=== PATIENT | male | born 1955 | race Caucasian/White ===

== ENCOUNTER 2016-09-26 19:38 | Inpatient (IN) | payer OTHER ==
[~2016-09-26] VITALS: Ht 167.6 cm; Wt 73.2 kg
[2016-09-26 22:24] LABS: BASOPHIL # 0.1 10^3/ul (0.0-0.1); BASOPHILS % 1.1 % (0.0-2.0); EOSINOPHILS # 0.1 10^3/ul (0.0-0.5); EOSINOPHILS % 1.4 % (0.0-7.0); HEMATOCRIT 26.8 % (42.0-52.0); HEMOGLOBIN 8.9 g/dl (14.0-18.0); LYMPHOCYTES # 1.8 10^3/ul (0.8-2.9); LYMPHOCYTES % 22.4 % (15.0-51.0); MEAN CORPUSCULAR HEMOGLOBIN 30.3 pg (29.0-33.0); MEAN CORPUSCULAR HGB CONC 33.2 g/dl (32.0-37.0); MEAN CORPUSCULAR VOLUME 91.2 fl (82.0-101.0); MEAN PLATELET VOLUME 9.5 fl (7.4-10.4); MONOCYTE # 0.6 10^3/ul (0.3-0.9); MONOCYTES % 7.9 % (0.0-11.0); NEUTROPHILS % 66.8 % (39.0-77.0); PLATELET COUNT 184 10^3/UL (140-415); RED BLOOD COUNT 2.94 10^6/ul (4.70-6.10); RED CELL DISTRIBUTION WIDTH 16.8 % (11.5-14.5); WHITE BLOOD COUNT 8.1 10^3/ul (4.8-10.8)
[2016-09-26 22:39] LABS: INR 1.1; PROTIME 14.2 Sec (12.2-14.2); PT RATIO 1.1
[2016-09-26 22:40] LABS: PARTIAL THROMBOPLASTIN TIME 45.1 Sec (25.0-35.0)
[2016-09-26 22:56] LABS: ALBUMIN 3.6 g/dl (3.3-4.9); ALBUMIN/GLOBULIN RATIO 0.83; BILIRUBIN,INDIRECT 0.2 mg/dl (0-1.1); BILIRUBIN,TOTAL 0.2 mg/dl (0.2-1.3); CALCIUM 9.3 mg/dl (8.4-10.2); CREATININE 3.82 mg/dl (0.61-1.24); POTASSIUM 3.6 mmol/L (3.5-5.1); TOTAL PROTEIN 7.9 g/dl (6.1-8.1)
[2016-09-26 23:07] LABS: TROPONIN-I 0.056 ng/ml (0.00-0.12)
[2016-09-26] MEDS ORDERED: TAMS0.4C2 PO (23:19)
[2016-09-26] MEDS ORDERED: AMLO-147 PO (23:19)
[2016-09-26] MEDS ORDERED: METO-429 PO (23:19)
[2016-09-26] MEDS ORDERED: AMIO200T2 PO (23:19)
[2016-09-26] MEDS ORDERED: MULT-542 PO (23:19)
[2016-09-26] MEDS ORDERED: LISI20TA11 PO (23:19)
[2016-09-26] MEDS ORDERED: CLON0.2T5 PO (23:19)
[2016-09-26] MEDS ORDERED: FOLI1CAP PO (23:19)
[2016-09-26] MEDS ORDERED: HYDR-3672 PO (23:19)
[2016-09-26] MEDS ORDERED: PANT40TA4 PO (23:19)
--- NOTE | 2016-09-26 23:22 | RADRPT ---
PROCEDURE: XR Chest. CLINICAL INDICATION: Sepsis TECHNIQUE: Single AP portable chest. COMPARISON: No prior Chest x-ray FINDINGS: Cardiomegaly with moderate vascular congestion. Right the dialysis catheter tip at the cavoatrial j unction. New Atherosclerotic calcification of the aorta. Large right pleural effusion at the right base opacity. Superimposed pneumonia cannot be excluded. No pneumothorax. The osseous structures a nd soft tissues are unremarkable. IMPRESSION: 1. Large right pleural effusion with vascular congestion. Superimposed right lower lobe pneumonia c annot be excluded. 2. Right dialysis catheter tip overlying the cavoatrial junction. 3. Cardiomegaly. . RPTAT:AAJJ Physician Scott Date Time Electronically viewed and signed by Physician Scott on 09/26/2016 23:21 INDIRA/
[2016-09-27] VITALS (13 sets, daily range): BP systolic 123–159; BP diastolic 74–94; PULSE 69–85; RESP 18–20; TEMP 98.4; Ht 167.6 cm; Wt 73.2 kg
[2016-09-27] MEDS ORDERED: hydrALAzine 20 MG INJ IV ONE (02:30)
--- NOTE | 2016-09-27 02:34 | ERA ---
ER Documentation Chief Complaint Date/Time DATE: 09/27/16 TIME: 02:32 Chief Complaint HTN, SOB TODAY. S/P DIALYSIS TODAY. 3L OUT. HPI 61 year male comes in with hypertension shortness of breath today. Patient says that he began feeling short of breath after his full dialysis treatment today. No nausea no vomiting no fevers no chills. No chest pain. No other current complaints. ROS All systems reviewed and are negative except as per history of present illness. Medications Home Meds Reported Medications Lisinopril* (Lisinopril*) 20 Mg Tablet, 20 MG PO BID, #30 TAB 09/26/16 Amlodipine Besylate* (Amlodipine Besylate*) 10 Mg Tablet, 10 MG PO DAILY, #30 TAB 09/26/16 Clonidine Hcl* (Clonidine Hcl*) 0.2 Mg Tablet, 0.2 MG PO Q8, TAB 09/26/16 Amiodarone Hcl* (Amiodarone Hcl*) 200 Mg Tablet, 200 MG PO DAILY, #30 TAB 09/26/16 Metoprolol Tartrate* (Lopressor*) 50 Mg Tab, 50 MG PO TID, #60 TAB 09/26/16 Pantoprazole* (Pantoprazole*) 40 Mg Tablet.dr, 40 MG PO DAILY, TAB 09/26/16 Folic Acid/Vitamin B Comp W-C (Nephrocaps Capsule) 1 Mg Capsule, 1 MG PO DAILY, CAP 09/26/16 Multivitamin* (Daily Value*) 1 Each Tablet, 1 TAB PO DAILY, TAB 09/26/16 Hydralazine Hcl* (Hydralazine Hcl*) 50 Mg Tab, 100 MG PO TID, #180 TAB 09/26/16 Tamsulosin Hcl* (Tamsulosin Hcl*) 0.4 Mg Cap.er.24h, 0.4 MG PO DAILY, CAP 09/26/16 Allergies Allergies: Coded Allergies: No Known Allergy (Unverified , 09/26/16) PMhx/Soc Medical and Surgical Hx: pt denies Surgical Hx History of Surgery: No Anesthesia Reaction: No Hx Neurological Disorder: No Hx Respiratory Disorders: No Hx Cardiac Disorders: Yes (hypertension) Hx Psychiatric Problems: No Hx Miscellaneous Medical Probl: No Hx Alcohol Use: No Hx Substance Use: No Hx Tobacco Use: No Smoking Status: Never smoker Physical Exam Vitals Vital Signs Date Time Temp Pulse Resp B/P Pulse Ox O2 Delivery O2 Flow Rate FiO2 09/27/16 01:33 100.9 85 18 172/86 96 Room Air 09/26/16 22:41 Nasal Cannula 09/26/16 21:46 100.9 81 24 182/98 96 Room Air 09/26/16 19:47 100.9 96 24 182/103 94 Physical Exam Const: [] Head: Atraumatic Eyes: Normal Conjunctiva ENT: Normal External Ears, Nose and Mouth. Neck: Full range of motion..~ No meningismus. Resp: Clear to auscultation bilaterally Cardio: Regular rate and rhythm, no murmurs Abd: Soft, non tender, non distended. Normal bowel sounds Skin: No petechiae or rashes Back: No midline or flank tenderness Ext: No cyanosis, or edema Neur: Awake and alert Psych: Normal Mood and Affect Result Diagram: 09/26/16219909/26/162199 Results 24 hrs Laboratory Tests Test 09/26/16 22:00 09/27/16 00:15 White Blood Count 8.110^3/ul Red Blood Count 2.9410^6/ul Hemoglobin 8.9g/dl Hematocrit 26.8% Mean Corpuscular Volume 91.2fl Mean Corpuscular Hemoglobin 30.3pg Mean Corpuscular Hemoglobin Concent 33.2g/dl Red Cell Distribution Width 16.8% Platelet Count 53792^3/UL Mean Platelet Volume 9.5fl Neutrophils % 66.8% Lymphocytes % 22.4% Monocytes % 7.9% Eosinophils % 1.4% Basophils % 1.1% Nucleated Red Blood Cells % 0.0/100WBC Neutrophils # (Manual) 510^3/ul Lymphocytes # 1.810^3/ul Monocytes # 0.610^3/ul Eosinophils # 0.110^3/ul Basophils # 0.110^3/ul Nucleated Red Blood Cells # 0.010^3/ul Prothrombin Time 14.2Sec Prothrombin Time Ratio 1.1 INR International Normalized Ratio 1.10 Activated Partial Thromboplast Time 45.1Sec Sodium Level 134mmol/L Potassium Level 3.6mmol/L Chloride Level 93mmol/L Carbon Dioxide Level 30mmol/L Anion Gap 15 Blood Urea Nitrogen 20mg/dl Creatinine 3.82mg/dl Glucose Level 101mg/dl Lactic Acid Level 0.9mmol/L 0.7mmol/L Calcium Level 9.3mg/dl Total Bilirubin 0.2mg/dl Direct Bilirubin 0.00mg/dl Indirect Bilirubin 0.2mg/dl Aspartate Amino Transf (AST/SGOT) 31IU/L Alanine Aminotransferase (ALT/SGPT) 17IU/L Alkaline Phosphatase 95IU/L Troponin I 0.056ng/ml Total Protein 7.9g/dl Albumin 3.6g/dl Globulin 4.30g/dl Albumin/Globulin Ratio 0.83 Current Medications Medications (Trade) Dose Ordered Sig/Tova Route PRN Reason Start Time Stop Time Status Last Admin Dose Admin Hydralazine HCl (Apresoline) 20 mg ONCE ONCE IV 09/27/16 02:30 09/27/16 02:31 DC Procedures/MDM EKG: Rate/Rhythm: Normal Sinus Rhythm QRS, ST, T-waves: No changes consistent w/ acute ischemia Impression: No evidence of ischemia or arrhythmia Chest X-ray 1V Interpreted by me: Soft Tissue: No acute abnormalities Bones: No acute abnormalities Mediastinum/Cardiac Silhouette/Lungs: Right lower effusion Medical decision-makin-year-old male with large pleural effusion. Patient will be transferred to [facility] capitation. Departure Diagnosis: Primary Impression: Hypertension Qualified Code: I10 - Essential hypertension Additional Impression: Pleural effusion Condition: Serious ZANDER HALLMAN Sep 27, 2016 02:34
[2016-09-27] MEDS ORDERED: DIPHENHYDRAMINE 25 MG CAP PO ONE (05:00)
[2016-09-27] MEDS ORDERED: CEFTRIAXONE 1 GM/50 ML (PMX) 50 ML IVPB STA (06:58)
[2016-09-27] MEDS ORDERED: AZITHROMYCIN 500MG/NS (PMX) 250 ML IV STA (06:58)
[2016-09-27] MEDS ORDERED: LABETALOL HCL 20MG INJ IV ONE (07:00)
--- NOTE | 2016-09-27 07:00 | QN ---
Documentation Comment I was notified by this patient's nurse that the patient has a fever and has a possible right lower lobe infiltrate on x-ray. I reviewed the x-ray and given the patient's fever without source possible right lower lobe infiltrate I did start the patient on community acquired coverage with Rocephin and azithromycin. His blood pressure was also elevated and patient was given 10 mg of labetalol IV TOPHER PULLIAM DO Sep 27, 2016 07:00
--- NOTE | 2016-09-27 08:07 | HP ---
Date/Time of Note Date/Time of Note DATE: 09/27/16 TIME: 08:01 Assessment/Plan VTE Prophylaxis VTE Prophylaxis Intervention: heparin Assessment/Plan Assessment/Plan 61 yo M with difficult to control blood pressure and mild resp distress managed for the following 1. Resistant htn 2. Fluid overload with possible Acute decompensated CHF 3. Large R sided Pleural effusion with Fluid overload causing SOB 4. ESRD on HD T/ / Sat 5. Anemia of CKD PLAN: Admit the patient to telemetry floor/ Try Lasix therapy / ACS r/o / 2D Echo Resume all home antihypertensives and add PRNs HD as soon as possible / Nephrology consult Blood cultures / urine cultures if possible / Empiric abx Monitor hgb / transfuse if and when indicated with HD Possible thoracentesis versus Pulm consult / will defer to am team Supportive care Prophylaxis: PPI / Heparin HPI/ROS Admit Date/Time Admit Date/Time 09/27/16 Hx of Present Illness 61-year-old male who was brought into the emergency room by his sister today because of difficult to control blood pressure despite multiple medications with good compliance as well as mild shortness of breath. Patient states he has been feeling ill for the last 2-3 days and his sister has been trying to monitor his blood pressure at home. They became very concerned because he seemed fluid overloaded and so he went in for an extra session of dialysis yesterday. His usual dialysis sessions Monday. After dialysis though he still had very high blood pressures and he was given a as needed dose of clonidine during dialysis. Postdialysis he continued to feel short of breath and since his blood pressure did not get better, his sister brought him into be evaluated. The patient denies fever, he denies cough. He does have Difficulty with exertion, denies chest pain, denies abdominal pain, denies blood in his stool. The patient says that he was just recently at [facility] when he was managed for blood in his urine and he underwent a cystoscopy. Post cystoscopy though he has not really had any urine output. He attributes this to dialysis. He does not have any dysuria at this time. And has been no further bleeding. There has been no passing out episodes, no focal neurologic deficits. ROS 12 point review if systems was done and pertinent findings are as noted. PMH/Family/Social Past Medical History * ESRD on HD x 7mths * Chronic difficult to control HTN Past Surgical History * dialysis access placement Family History Significant Family History: hypertension Social History Alcohol Use: none Smoking Status: Never smoker Drug Use: none Exam/Review of Systems Vital Signs Vitals Vital Signs Date Time Temp Pulse Resp B/P Pulse Ox O2 Delivery O2 Flow Rate FiO2 09/27/16 06:59 98.4 108 20 199/118 96 09/27/16 05:17 Room Air Exam Constitutional: alert, distress (minimal resp distress), frail Psych: anxiety Head: atraumatic, normocephalic Eyes: PERRL Respiratory: clear to auscultation, diminished breath sounds (R>>L) Cardiovascular: regular rate and rhythm Gastrointestinal: bowel sounds, non-tender, soft Extremities: edema (johanna 1+, non pitting) Neurological: lethargic, nl mental status, No focal weakness Labs Result Diagram: 09/26/16219909/26/162199 Procedures Procedures PROCEDURE: XR Chest. CLINICAL INDICATION: Sepsis TECHNIQUE: Single AP portable chest. COMPARISON: No prior Chest x-ray FINDINGS: Cardiomegaly with moderate vascular congestion. Right the dialysis catheter tip at the cavoatrial junction. New Atherosclerotic calcification of the aorta. Large right pleural effusion at the right base opacity. Superimposed pneumonia cannot be excluded. No pneumothorax. The osseous structures and soft tissues are unremarkable. IMPRESSION: 1. Large right pleural effusion with vascular congestion. Superimposed right lower lobe pneumonia cannot be excluded. 2. Right dialysis catheter tip overlying the cavoatrial junction. 3. Cardiomegaly. . RPTAT:AAJJ Physician Scott Date Time Electronically viewed and signed by Physician Scott on 09/26/2016 23:21 INDIRA/ CC: ZANDER HALLMAN BOLATITO M. Sep 27, 2016 08:07
[2016-09-27] MEDS ORDERED: VANCOMYCIN IV PER PHARMACY XX SCH (08:30)
[2016-09-27] MEDS ORDERED: FUROSEMIDE 40 MG INJ IV ONE (08:30)
[2016-09-27] MEDS ORDERED: hydrALAzine 20 MG INJ IV PRN (08:30)
[2016-09-27] MEDS ORDERED: LABETALOL HCL 20MG INJ IV PRN (08:30)
[2016-09-27] MEDS ORDERED: MULTIVITAMINS THERAPEUTIC TAB PO SCH (09:00)
[2016-09-27] MEDS ORDERED: TAMSULOSIN (SR) 0.4 MG CAP PO SCH (09:00)
[2016-09-27] MEDS ORDERED: VANCOMYCIN 1.5 GM in SOD CHLORIDE 0.9% 250 ML IVPB SCH (10:00)
[2016-09-27] MEDS: AMLODIPINE 10 MG TAB PO SCH (10:18)
[2016-09-27] MEDS: AMIODARONE 200 MG TAB PO SCH (10:19)
[2016-09-27] MEDS: DOCUSATE SODIUM 100 MG CAP PO SCH ×2 (10:19→20:52)
[2016-09-27] MEDS: LISINOPRIL 20 MG TAB PO SCH ×2 (10:20→20:53)
[2016-09-27] MEDS: MULTIVIT/CA CARB/B CMPLX/FA TAB PO SCH (10:21)
[2016-09-27] MEDS: HEPARIN 5,000 UNIT/0.5 ML VIAL SC SCH ×2 (10:31→20:56)
[2016-09-27] MEDS: METOPROLOL 50 MG TAB PO SCH ×3 (10:32→20:53)
[2016-09-27] MEDS: PANTOPRAZOLE (EC) 40 MG TAB PO SCH (10:32)
--- NOTE | 2016-09-27 10:48 | CONS ---
Date/Time of Note Date/Time of Note DATE: 09/27/16 TIME: 10:47 Consultation Date/Type/Reason Admit Date/Time 09/27/16 Date of Consultation: Sep 27, 2016 Type of Consultation: Renal Reason for Consultation ESRD Referring Provider: ANUM SYED Social History Smoking Status: Never smoker Exam/Review of Systems Vital Signs Vitals Vital Signs Date Time Temp Pulse Resp B/P Pulse Ox O2 Delivery O2 Flow Rate FiO2 09/27/16 09:57 98.4 103 18 178/108 Room Air 09/27/16 06:59 96 Results Result Diagram: 09/26/16219909/26/162199 Results 24 hrs Laboratory Tests Test 09/26/16 22:00 09/27/16 00:15 09/27/16 03:30 White Blood Count 8.1 Red Blood Count 2.94 L Hemoglobin 8.9 L Hematocrit 26.8 L Mean Corpuscular Volume 91.2 Mean Corpuscular Hemoglobin 30.3 Mean Corpuscular Hemoglobin Concent 33.2 Red Cell Distribution Width 16.8 H Platelet Count 184 Mean Platelet Volume 9.5 Neutrophils % 66.8 Lymphocytes % 22.4 Monocytes % 7.9 Eosinophils % 1.4 Basophils % 1.1 Nucleated Red Blood Cells % 0.0 Neutrophils # (Manual) 5 Lymphocytes # 1.8 Monocytes # 0.6 Eosinophils # 0.1 Basophils # 0.1 Nucleated Red Blood Cells # 0.0 Prothrombin Time 14.2 Prothrombin Time Ratio 1.1 INR International Normalized Ratio 1.10 Activated Partial Thromboplast Time 45.1 H Sodium Level 134 L Potassium Level 3.6 Chloride Level 93 L Carbon Dioxide Level 30 Anion Gap 15 Blood Urea Nitrogen 20 Creatinine 3.82 H Glucose Level 101 Lactic Acid Level 0.9 0.7 0.8 Calcium Level 9.3 Total Bilirubin 0.2 Direct Bilirubin 0.00 Indirect Bilirubin 0.2 Aspartate Amino Transf (AST/SGOT) 31 Alanine Aminotransferase (ALT/SGPT) 17 Alkaline Phosphatase 95 Troponin I 0.056 Total Protein 7.9 Albumin 3.6 Globulin 4.30 H Albumin/Globulin Ratio 0.83 Medications Medications Current Medications Cefepime HCl (Maxipime 1gm/50 ml (Pmx)) 50 ml @ 100 mls/hr Q24H IVPB ; Start at 17:00 Amiodarone HCl (Cordarone) 200 mg DAILY PO Last administered on 09/27/16 10:19 ; Admin Dose 200 MG; Start 09/27/16 at 09:00 Amlodipine Besylate (Norvasc) 10 mg DAILY PO Last administered on 09/27/16 10: 18; Admin Dose 10 MG; Start 09/27/16 at 09:00 Clonidine (Catapres) 0.2 mg Q8 PO Last administered on 09/27/16 10:19; Admin Dose 0.2 MG; Start 09/27/16 at 08:30 Hydralazine HCl (Apresoline) 100 mg TID PO Last administered on 09/27/16 10:20 ; Admin Dose 50 MG; Start 09/27/16 at 09:00 Lisinopril (Zestril) 20 mg BID PO Last administered on 09/27/16 10:20; Admin Dose 20 MG; Start 09/27/16 at 09:00 Metoprolol Tartrate (Lopressor) 50 mg TID PO Last administered on 09/27/16 10: 32; Admin Dose 50 MG; Start 09/27/16 at 09:00 Pantoprazole (Protonix Tab) 40 mg DAILY PO Last administered on 09/27/16 10:32 ; Admin Dose 40 MG; Start 09/27/16 at 09:00 Tamsulosin HCl (Flomax) 0.4 mg DAILY PO Last administered on 09/27/16 10:21; Admin Dose 0.4 MG; Start 09/27/16 at 09:00 Multivit/Ca Carb/ B Cmplx/FA/Prenat (Rosalba-Caitlin) 1 tab DAILY PO Last administered on 09/27/16 10:21; Admin Dose 1 TAB; Start 09/27/16 at 09:00 Hydralazine HCl (Apresoline) 20 mg Q6H PRN IV sbp>170mmhg; Start 09/27/16 at 08 :30 Labetalol HCl (Labetalol) 20 mg Q4H PRN IV sbp>160mmhg; Start 09/27/16 at 08:30 Docusate Sodium (Colace) 100 mg BID PO Last administered on 09/27/16 10:19; Admin Dose 100 MG; Start 09/27/16 at 09:00 Heparin Sodium (Porcine) 5000 unit 5,000 unit BID SC Last administered on t 10:31; Admin Dose 5,000 UNIT; Start 09/27/16 at 09:00 Vancomycin HCl/ Sodium Chloride (Vancocin/NS) 250 ml @ 83.333 mls/ hr NOW IVPB ; Start 09/27/16 at 10:00; Stop 09/27/16 at 12:59 Procedures Procedures CLINICAL INDICATION: Sepsis TECHNIQUE: Single AP portable chest. COMPARISON: No prior Chest x-ray FINDINGS: Cardiomegaly with moderate vascular congestion. Right the dialysis catheter tip at the cavoatrial junction. New Atherosclerotic calcification of the aorta. Large right pleural effusion at the right base opacity. Superimposed pneumonia cannot be excluded. No pneumothorax. The osseous structures and soft tissues are unremarkable. IMPRESSION: 1. Large right pleural effusion with vascular congestion. Superimposed right lower lobe pneumonia cannot be excluded. 2. Right dialysis catheter tip overlying the cavoatrial junction. 3. Cardiomegaly. . RPTAT:AAJJ Physician Scott Date Time Electronically viewed and signed by Physician Scott on 09/26/2016 23:21 KEVIN BROWNE MD Sep 27, 2016 10:48
[2016-09-27 11:11] LABS: BASOPHIL # 0.1 10^3/ul (0.0-0.1); BASOPHILS % 1.2 % (0.0-2.0); EOSINOPHILS # 0.2 10^3/ul (0.0-0.5); EOSINOPHILS % 2.1 % (0.0-7.0); HEMATOCRIT 22.9 % (42.0-52.0); HEMOGLOBIN 7.3 g/dl (14.0-18.0); LYMPHOCYTES # 1.4 10^3/ul (0.8-2.9); LYMPHOCYTES % 17.5 % (15.0-51.0); MEAN CORPUSCULAR HGB CONC 31.9 g/dl (32.0-37.0); MEAN CORPUSCULAR VOLUME 90.9 fl (82.0-101.0); MEAN PLATELET VOLUME 9.5 fl (7.4-10.4); MONOCYTE # 0.6 10^3/ul (0.3-0.9); MONOCYTES % 8.2 % (0.0-11.0); NEUTROPHILS % 70.6 % (39.0-77.0); PLATELET COUNT 164 10^3/UL (140-415); RED BLOOD COUNT 2.52 10^6/ul (4.70-6.10); RED CELL DISTRIBUTION WIDTH 16.6 % (11.5-14.5); WHITE BLOOD COUNT 7.8 10^3/ul (4.8-10.8)
[2016-09-27 11:35] LABS: CALCIUM 8.9 mg/dl (8.4-10.2); CHOL/HDL RATIO 4.1 RATIO; CREATININE 4.61 mg/dl (0.61-1.24); MAGNESIUM 2.3 mg/dl (1.7-2.5); POTASSIUM 3.6 mmol/L (3.5-5.1)
[2016-09-27 11:38] LABS: TOTAL PROTEIN 6.7 g/dl (6.1-8.1)
--- NOTE | 2016-09-27 11:51 | CONS ---
Date/Time of Note Date/Time of Note DATE: 09/27/16 TIME: 11:49 Consultation Date/Type/Reason Admit Date/Time 09/27/16 Date of Consultation: Sep 27, 2016 Type of Consultation: ID Reason for Consultation Antibiotic management Social History Smoking Status: Never smoker Exam/Review of Systems Vital Signs Vitals Vital Signs Date Time Temp Pulse Resp B/P Pulse Ox O2 Delivery O2 Flow Rate FiO2 09/27/16 09:57 98.4 103 18 178/108 Room Air 09/27/16 06:59 96 Results Result Diagram: 09/27/16 1034 09/27/16 1034 Results 24 hrs Laboratory Tests Test 09/26/16 22:00 09/27/16 00:15 09/27/16 03:30 09/27/16 10:34 White Blood Count 8.1 7.8 Red Blood Count 2.94 L 2.52 L Hemoglobin 8.9 L 7.3 L Hematocrit 26.8 L 22.9 L Mean Corpuscular Volume 91.2 90.9 Mean Corpuscular Hemoglobin 30.3 29.0 Mean Corpuscular Hemoglobin Concent 33.2 31.9 L Red Cell Distribution Width 16.8 H 16.6 H Platelet Count 184 164 Mean Platelet Volume 9.5 9.5 Neutrophils % 66.8 70.6 Lymphocytes % 22.4 17.5 Monocytes % 7.9 8.2 Eosinophils % 1.4 2.1 Basophils % 1.1 1.2 Nucleated Red Blood Cells % 0.0 0.0 Neutrophils # (Manual) 5 5 Lymphocytes # 1.8 1.4 Monocytes # 0.6 0.6 Eosinophils # 0.1 0.2 Basophils # 0.1 0.1 Nucleated Red Blood Cells # 0.0 0.0 Prothrombin Time 14.2 Prothrombin Time Ratio 1.1 INR International Normalized Ratio 1.10 Activated Partial Thromboplast Time 45.1 H Sodium Level 134 L 139 Potassium Level 3.6 3.6 Chloride Level 93 L 94 L Carbon Dioxide Level 30 28 Anion Gap 15 21 H Blood Urea Nitrogen 20 25 H Creatinine 3.82 H 4.61 H Glucose Level 101 80 Lactic Acid Level 0.9 0.7 0.8 Calcium Level 9.3 8.9 Total Bilirubin 0.2 0.0 L Direct Bilirubin 0.00 0.00 Indirect Bilirubin 0.2 0.0 Aspartate Amino Transf (AST/SGOT) 31 15 # Alanine Aminotransferase (ALT/SGPT) 17 12 L Alkaline Phosphatase 95 70 Troponin I 0.056 Total Protein 7.9 6.7 # Albumin 3.6 3.0 L Globulin 4.30 H Albumin/Globulin Ratio 0.83 Phosphorus Level 4.0 Magnesium Level 2.3 Triglycerides Level 102 Cholesterol Level 146 LDL Cholesterol, Calculated 91 HDL Cholesterol 35 Cholesterol/HDL Ratio 4.1 Medications Medications Current Medications Cefepime HCl (Maxipime 1gm/50 ml (Pmx)) 50 ml @ 100 mls/hr Q24H IVPB ; Start at 17:00 Amiodarone HCl (Cordarone) 200 mg DAILY PO Last administered on 09/27/16 10:19 ; Admin Dose 200 MG; Start 09/27/16 at 09:00 Amlodipine Besylate (Norvasc) 10 mg DAILY PO Last administered on 09/27/16 10: 18; Admin Dose 10 MG; Start 09/27/16 at 09:00 Clonidine (Catapres) 0.2 mg Q8 PO Last administered on 09/27/16 10:19; Admin Dose 0.2 MG; Start 09/27/16 at 08:30 Hydralazine HCl (Apresoline) 100 mg TID PO Last administered on 09/27/16 10:20 ; Admin Dose 50 MG; Start 09/27/16 at 09:00 Lisinopril (Zestril) 20 mg BID PO Last administered on 09/27/16 10:20; Admin Dose 20 MG; Start 09/27/16 at 09:00 Metoprolol Tartrate (Lopressor) 50 mg TID PO Last administered on 09/27/16 10: 32; Admin Dose 50 MG; Start 09/27/16 at 09:00 Pantoprazole (Protonix Tab) 40 mg DAILY PO Last administered on 09/27/16 10:32 ; Admin Dose 40 MG; Start 09/27/16 at 09:00 Tamsulosin HCl (Flomax) 0.4 mg DAILY PO Last administered on 09/27/16 10:21; Admin Dose 0.4 MG; Start 09/27/16 at 09:00 Multivit/Ca Carb/ B Cmplx/FA/Prenat (Rosalba-Caitlin) 1 tab DAILY PO Last administered on 09/27/16 10:21; Admin Dose 1 TAB; Start 09/27/16 at 09:00 Hydralazine HCl (Apresoline) 20 mg Q6H PRN IV sbp>170mmhg; Start 09/27/16 at 08 :30 Labetalol HCl (Labetalol) 20 mg Q4H PRN IV sbp>160mmhg; Start 09/27/16 at 08:30 Docusate Sodium (Colace) 100 mg BID PO Last administered on 09/27/16 10:19; Admin Dose 100 MG; Start 09/27/16 at 09:00 Heparin Sodium (Porcine) 5000 unit 5,000 unit BID SC Last administered on 10:31; Admin Dose 5,000 UNIT; Start 09/27/16 at 09:00 Vancomycin HCl/ Sodium Chloride (Vancocin/NS) 250 ml @ 83.333 mls/ hr NOW IVPB ; Start 09/27/16 at 10:00; Stop 09/27/16 at 12:59 MAURI RAMAN MD Sep 27, 2016 11:51
[2016-09-27 11:59] LABS: ADD UMIC YES; UR ASCORBIC ACID NEGATIVE (NEGATIVE); UR BACTERIA MODERATE /HPF (NONE SEEN); UR BILIRUBIN (Dip) NEGATIVE (NEGATIVE); UR BLOOD (Dip) 3+ mg/dL (NEGATIVE); UR CLARITY CLOUDY (CLEAR); UR COLOR YELLOW (YELLOW); UR GLUCOSE (Dip) NEGATIVE (NEGATIVE); UR KETONES (Dip) NEGATIVE (NEGATIVE); UR LEUKOCYTE ESTERASE (Dip) 3+ Leu/ul (NEGATIVE); UR NITRITE (Dip) NEGATIVE (NEGATIVE); UR RBC > 182 /HPF (0-5); UR SPECIFIC GRAVITY (Dip) 1.009 (1.003-1.030); UR TOTAL PROTEIN (Dip) 2+ mg/dl (NEGATIVE); UR UROBILINOGEN (Dip) NEGATIVE (NEGATIVE); UR WBC CLUMPS FEW /HPF (NONE SEEN)
[2016-09-27 12:43] LABS: TROPONIN-I 0.051 ng/ml (0.00-0.12)
--- NOTE | 2016-09-27 12:44 | PN ---
Date/Time of Note Date/Time of Note DATE: 09/27/16 TIME: 12:36 Assessment/Plan VTE Prophylaxis VTE Prophylaxis Intervention: LMWH Lines/Catheters Urinary Cath still in place: Yes Reason Cath still needed: urinary retention Assessment/Plan Chief Complaint/Hosp Course 61 yo male with ESRD of unclear etiology, hypertension, and BPH who presents with pleural effusion and urinary retention causing hydronephrosis ESRD: - Unclear etiology of renal disease - Clearly makes urine and has symptomatic bladder outlet obstruction - Renal consulted for volume removal/HD consideration Pleural effusion: - Very uncomplicated appearance on US - Likely from hypervolemia 2/2 ESRD - Check TTE - Consider thora, though unlikely infectious or malignant Hypertension: - Continue home meds BPH leading to acute EWING and hydronephrosis: - Increase flomax to 0.4 BID - Start finasteride - Consult urology - Continue barraza for now Complicated UTI: - Continue cefepime - Await sensitivities Discharge plan pending Problems: Subjective 24 Hr Interval Summary Free Text/Dictation Bedside ultrasound performed revealing: - Hydronephrosis with urinary retention in bladder - Large free flowing, uncomplicated pleural effusion on the R, small uncomplicated pleural effusion on the left A barraza catheter was placed. 850 cc of blood tinged urine immediately flowed out. Patient has had obstructive symptoms for some time, reports he underwent what sounds like a cystoscopy last month during prolonged hospitalization at [facility], says they did something wiht a "laser". Not clear details Breathing comfortably Exam/Review of Systems Vital Signs Vitals Vital Signs Date Time Temp Pulse Resp B/P Pulse Ox O2 Delivery O2 Flow Rate FiO2 09/27/16 09:57 98.4 103 18 178/108 Room Air 09/27/16 06:59 96 Exam Alert, oriented x3 Pleasant R chest permacath for HD JVD+++ Diminshed sounds at b/l bases + Pedal edema b/l Results Result Diagram: 09/27/16 1034 09/27/16 1034 Results 24 hrs Laboratory Tests Test 09/26/16 22:00 09/27/16 00:15 09/27/16 03:30 09/27/16 10:34 White Blood Count 8.1 7.8 Red Blood Count 2.94 L 2.52 L Hemoglobin 8.9 L 7.3 L Hematocrit 26.8 L 22.9 L Mean Corpuscular Volume 91.2 90.9 Mean Corpuscular Hemoglobin 30.3 29.0 Mean Corpuscular Hemoglobin Concent 33.2 31.9 L Red Cell Distribution Width 16.8 H 16.6 H Platelet Count 184 164 Mean Platelet Volume 9.5 9.5 Neutrophils % 66.8 70.6 Lymphocytes % 22.4 17.5 Monocytes % 7.9 8.2 Eosinophils % 1.4 2.1 Basophils % 1.1 1.2 Nucleated Red Blood Cells % 0.0 0.0 Neutrophils # (Manual) 5 5 Lymphocytes # 1.8 1.4 Monocytes # 0.6 0.6 Eosinophils # 0.1 0.2 Basophils # 0.1 0.1 Nucleated Red Blood Cells # 0.0 0.0 Prothrombin Time 14.2 Prothrombin Time Ratio 1.1 INR International Normalized Ratio 1.10 Activated Partial Thromboplast Time 45.1 H Sodium Level 134 L 139 Potassium Level 3.6 3.6 Chloride Level 93 L 94 L Carbon Dioxide Level 30 28 Anion Gap 15 21 H Blood Urea Nitrogen 20 25 H Creatinine 3.82 H 4.61 H Glucose Level 101 80 Lactic Acid Level 0.9 0.7 0.8 Calcium Level 9.3 8.9 Total Bilirubin 0.2 0.0 L Direct Bilirubin 0.00 0.00 Indirect Bilirubin 0.2 0.0 Aspartate Amino Transf (AST/SGOT) 31 15 # Alanine Aminotransferase (ALT/SGPT) 17 12 L Alkaline Phosphatase 95 70 Troponin I 0.056 Pending Total Protein 7.9 6.7 # Albumin 3.6 3.0 L Globulin 4.30 H Albumin/Globulin Ratio 0.83 Phosphorus Level 4.0 Magnesium Level 2.3 Creatine Kinase 33 Creatine Kinase Index Pending Creatinine Kinase MB (Mass) Pending Triglycerides Level 102 Cholesterol Level 146 LDL Cholesterol, Calculated 91 HDL Cholesterol 35 Cholesterol/HDL Ratio 4.1 Test 09/27/16 11:15 Urine Color YELLOW Urine Clarity CLOUDY A Urine pH 9.0 Urine Specific [place] 1.009 Urine Ketones NEGATIVE Urine Nitrite NEGATIVE Urine Bilirubin NEGATIVE Urine Urobilinogen NEGATIVE Urine Leukocyte Esterase 3+ H Urine Microscopic RBC > 182 H Urine Microscopic WBC > 182 H Urine Bacteria MODERATE Urine Hemoglobin 3+ H Urine Glucose NEGATIVE Urine Total Protein 2+ H Medications Medications Current Medications Cefepime HCl (Maxipime 1gm/50 ml (Pmx)) 50 ml @ 100 mls/hr Q24H IVPB ; Start at 17:00 Amiodarone HCl (Cordarone) 200 mg DAILY PO Last administered on 09/27/16 10:19 ; Admin Dose 200 MG; Start 09/27/16 at 09:00 Amlodipine Besylate (Norvasc) 10 mg DAILY PO Last administered on 09/27/16 10: 18; Admin Dose 10 MG; Start 09/27/16 at 09:00 Clonidine (Catapres) 0.2 mg Q8 PO Last administered on 09/27/16 10:19; Admin Dose 0.2 MG; Start 09/27/16 at 08:30 Hydralazine HCl (Apresoline) 100 mg TID PO Last administered on 09/27/16 10:20 ; Admin Dose 50 MG; Start 09/27/16 at 09:00 Lisinopril (Zestril) 20 mg BID PO Last administered on 09/27/16 10:20; Admin Dose 20 MG; Start 09/27/16 at 09:00 Metoprolol Tartrate (Lopressor) 50 mg TID PO Last administered on 09/27/16 10: 32; Admin Dose 50 MG; Start 09/27/16 at 09:00 Pantoprazole (Protonix Tab) 40 mg DAILY PO Last administered on 09/27/16 10:32 ; Admin Dose 40 MG; Start 09/27/16 at 09:00 Tamsulosin HCl (Flomax) 0.4 mg DAILY PO Last administered on 09/27/16 10:21; Admin Dose 0.4 MG; Start 09/27/16 at 09:00 Multivit/Ca Carb/ B Cmplx/FA/Prenat (Rosalba-Caitlin) 1 tab DAILY PO Last administered on 09/27/16 10:21; Admin Dose 1 TAB; Start 09/27/16 at 09:00 Hydralazine HCl (Apresoline) 20 mg Q6H PRN IV sbp>170mmhg; Start 09/27/16 at 08 :30 Labetalol HCl (Labetalol) 20 mg Q4H PRN IV sbp>160mmhg; Start 09/27/16 at 08:30 Docusate Sodium (Colace) 100 mg BID PO Last administered on 09/27/16 10:19; Admin Dose 100 MG; Start 09/27/16 at 09:00 Heparin Sodium (Porcine) 5000 unit 5,000 unit BID SC Last administered on t 10:31; Admin Dose 5,000 UNIT; Start 09/27/16 at 09:00 Vancomycin HCl/ Sodium Chloride (Vancocin/NS) 250 ml @ 83.333 mls/ hr NOW IVPB ; Start 09/27/16 at 10:00; Stop 09/27/16 at 12:59 MAJOR GARNER MD Sep 27, 2016 12:44
[2016-09-27 12:50] LABS: CK-MB 1.2 ng/ml (0.0-2.4)
--- NOTE | 2016-09-27 13:53 | CONS ---
Date/Time of Note Date/Time of Note DATE: 09/27/16 TIME: 13:42 Assessment/Plan Assessment/Plan Chief Complaint/Hosp Course Acute on chronic diastolic heart failure: decompensated by exam. May have a component of PNA as well with fevers and possible infiltrate. EF is unknown Fever/sepsis: possible PNA but UA is suspicious as well (makes minimal urine) ESRD on HD: TTS. Needs extra sessions for volume removal HTN: BP uncontrolled on multiple meds. Volume overload may also be contributing -HD per nephrology, recommend extra sessions (2-3 days in a row) -antibiotics per primary/ID teams -amlodipine 10mg -clonidine 0.2mg TID -metoprolol 50mg TID -hydralazine 100mg TID -lisinopril 20mg BID -echo Problems: Consultation Date/Type/Reason Admit Date/Time 09/27/16 Date of Consultation: Sep 27, 2016 Type of Consultation: Cardiology Reason for Consultation Chest pain Referring Provider: ANUM SYED Hx of Present Illness 61 yo M with a h/o ESRD on HD TTS, HTN, paroxysmal afib, who presented with SOB. The pt notes that he had his regular HD session Monday but that over the past few days he has been having worsening SOB, orthopnea, PND, edema. He actually went in yesterday for an extra HD session and felt better but still was not back to his normal so he decided to come in. He has been on HD for the past 6 months only. Rarely makes urine. No chest pain. per HPI, otherwise negative Past Medical History per hPI Social History Smoking Status: Never smoker Exam/Review of Systems Vital Signs Vitals Vital Signs Date Time Temp Pulse Resp B/P Pulse Ox O2 Delivery O2 Flow Rate FiO2 09/27/16 09:57 98.4 103 18 178/108 Room Air 09/27/16 06:59 96 Exam Constitutional: alert, distress (mild respiratory), oriented Psych: nl mood/affect, No no complaints Head: atraumatic, normocephalic Neck: jvd (12cm) Respiratory: crackles/rales, diminished breath sounds (right base), No clear to auscultation Cardiovascular: edema (1+), regular rate and rhythm, systolic murmur (2/6 ERICKSON) Gastrointestinal: non-tender, soft, No distended Musculoskeletal: nl extremities to inspection Neurological: nl mental status, nl speech Skin: No rash or lesions Results Result Diagram: 09/27/16 1034 09/27/16 1034 Results 24 hrs Laboratory Tests Test 09/26/16 22:00 09/27/16 00:15 09/27/16 03:30 09/27/16 10:34 White Blood Count 8.1 7.8 Red Blood Count 2.94 L 2.52 L Hemoglobin 8.9 L 7.3 L Hematocrit 26.8 L 22.9 L Mean Corpuscular Volume 91.2 90.9 Mean Corpuscular Hemoglobin 30.3 29.0 Mean Corpuscular Hemoglobin Concent 33.2 31.9 L Red Cell Distribution Width 16.8 H 16.6 H Platelet Count 184 164 Mean Platelet Volume 9.5 9.5 Neutrophils % 66.8 70.6 Lymphocytes % 22.4 17.5 Monocytes % 7.9 8.2 Eosinophils % 1.4 2.1 Basophils % 1.1 1.2 Nucleated Red Blood Cells % 0.0 0.0 Neutrophils # (Manual) 5 5 Lymphocytes # 1.8 1.4 Monocytes # 0.6 0.6 Eosinophils # 0.1 0.2 Basophils # 0.1 0.1 Nucleated Red Blood Cells # 0.0 0.0 Prothrombin Time 14.2 Prothrombin Time Ratio 1.1 INR International Normalized Ratio 1.10 Activated Partial Thromboplast Time 45.1 H Sodium Level 134 L 139 Potassium Level 3.6 3.6 Chloride Level 93 L 94 L Carbon Dioxide Level 30 28 Anion Gap 15 21 H Blood Urea Nitrogen 20 25 H Creatinine 3.82 H 4.61 H Glucose Level 101 80 Lactic Acid Level 0.9 0.7 0.8 Calcium Level 9.3 8.9 Total Bilirubin 0.2 0.0 L Direct Bilirubin 0.00 0.00 Indirect Bilirubin 0.2 0.0 Aspartate Amino Transf (AST/SGOT) 31 15 # Alanine Aminotransferase (ALT/SGPT) 17 12 L Alkaline Phosphatase 95 70 Troponin I 0.056 0.051 Total Protein 7.9 6.7 # Albumin 3.6 3.0 L Globulin 4.30 H Albumin/Globulin Ratio 0.83 Phosphorus Level 4.0 Magnesium Level 2.3 Creatine Kinase 33 Creatine Kinase Index 3.6 Creatinine Kinase MB (Mass) 1.20 Triglycerides Level 102 Cholesterol Level 146 LDL Cholesterol, Calculated 91 HDL Cholesterol 35 Cholesterol/HDL Ratio 4.1 Test 09/27/16 11:15 Urine Color YELLOW Urine Clarity CLOUDY A Urine pH 9.0 Urine Specific [place] 1.009 Urine Ketones NEGATIVE Urine Nitrite NEGATIVE Urine Bilirubin NEGATIVE Urine Urobilinogen NEGATIVE Urine Leukocyte Esterase 3+ H Urine Microscopic RBC > 182 H Urine Microscopic WBC > 182 H Urine Bacteria MODERATE Urine Hemoglobin 3+ H Urine Glucose NEGATIVE Urine Total Protein 2+ H Medications Medications Current Medications Cefepime HCl (Maxipime 1gm/50 ml (Pmx)) 50 ml @ 100 mls/hr Q24H IVPB ; Start at 17:00 Amiodarone HCl (Cordarone) 200 mg DAILY PO Last administered on 09/27/16 10:19 ; Admin Dose 200 MG; Start 09/27/16 at 09:00 Amlodipine Besylate (Norvasc) 10 mg DAILY PO Last administered on 09/27/16 10: 18; Admin Dose 10 MG; Start 09/27/16 at 09:00 Clonidine (Catapres) 0.2 mg Q8 PO Last administered on 09/27/16 10:19; Admin Dose 0.2 MG; Start 09/27/16 at 08:30 Hydralazine HCl (Apresoline) 100 mg TID PO Last administered on 09/27/16 10:20 ; Admin Dose 50 MG; Start 09/27/16 at 09:00 Lisinopril (Zestril) 20 mg BID PO Last administered on 09/27/16 10:20; Admin Dose 20 MG; Start 09/27/16 at 09:00 Metoprolol Tartrate (Lopressor) 50 mg TID PO Last administered on 09/27/16 10: 32; Admin Dose 50 MG; Start 09/27/16 at 09:00 Pantoprazole (Protonix Tab) 40 mg DAILY PO Last administered on 09/27/16 10:32 ; Admin Dose 40 MG; Start 09/27/16 at 09:00 Multivit/Ca Carb/ B Cmplx/FA/Prenat (Rosalba-Caitlin) 1 tab DAILY PO Last administered on 09/27/16 10:21; Admin Dose 1 TAB; Start 09/27/16 at 09:00 Hydralazine HCl (Apresoline) 20 mg Q6H PRN IV sbp>170mmhg; Start 09/27/16 at 08 :30 Labetalol HCl (Labetalol) 20 mg Q4H PRN IV sbp>160mmhg; Start 09/27/16 at 08:30 Docusate Sodium (Colace) 100 mg BID PO Last administered on 09/27/16 10:19; Admin Dose 100 MG; Start 09/27/16 at 09:00 Heparin Sodium (Porcine) (Heparin (5000 Units/0.5 ml)) 5,000 unit BID SC Last administered on 09/27/16 10:31; Admin Dose 5,000 UNIT; Start 09/27/16 at 09:00 Tamsulosin HCl (Flomax) 0.4 mg BID PO ; Start 09/27/16 at 21:00 CON PERRIN Sep 27, 2016 13:52
--- NOTE | 2016-09-27 15:35 | RADRPT ---
Echocardiogram Report Patient Name: DONALD LEIGH Gender: Male Date: 1955 Study Date: 27-Sep-2016 [employer] Advisor: Alena Powell RDCS Location: 3 Ref. Physician: ANUM SYED Quality: Adequate Procedures: Transthoracic echocardiogram with complete 2D, M-Mode, and doppler examination. Indications: fluid overload/esrd. 2D/M Mode Doppler Measurement Value Normal Ranges Measurement Value Normal Ranges LVIDd 2D 5.1 3.5 - 5.6 cm AV Peak Kody 1.7 m/sec LVIDs 2D 3.0 2.1 - 4.1 cm AV Peak PG 11.1 mmHg LVPWd 2D 1.2 0.6 - 1.1 cm AI Peak PG 63.0 mmHg IVSd 2D 1.2 0.6 - 1.1 cm AI Peak Kody 4.0 m/sec AoR Diam 2D 3.1 2.0 - 3.7 cm AI PHT 382.0 msec EDV 2D 122.9 cm3 LVOT Peak Kody 1.1 m/sec ESV 2D 26.4 cm3 LVOT Peak PG 4.4 mmHg LA Dimen 2D 4.2 2.3 - 4.0 cm TR Peak Kody 2.9 m/sec TR Peak PG 32.9 mmHg RVSP 48.0 mmHg Findings Left Ventricle: Lower limits of normal systolic function. Normal left ventricular cavity size. Mild concentric left ventricular hypertrophy. Ejection fraction is visually estimated at 50 %. Tissue Doppler/Mitral Doppler indices are consistent with pseudonormalization with mildly elevated left atrial pressure (Stage II diastolic dysfunction). Right Ventricle: Normal right ventricular size. Normal right ventricular systolic function. Left Atrium: There is severe enlargement of left atrium. Right Atrium: There is severe enlargement of right atrium. Mitral Valve: Mitral valve leaflets appear mildly thickened. Mild mitral annular calcification. Mild to moderate mitral valve regurgitation. Aortic Valve: No hemodynamically significant aortic stenosis by doppler. Aortic cusps appear mildly calcified. Mild aortic valve regurgitation. Tricuspid Valve: Normal appearance of the tricuspid valve. Estimated peak PA systolic pressure 48 mmHg. There is mild to moderate tricuspid regurgitation. Pulmonic Valve: Normal pulmonic valve appearance. Pericardium: Small pericardial effusion. Pleural effusion seen. Aorta: Normal aortic root. IVC: Dilated IVC without respiratory collapse consistent with elevated right atrial pressure. Conclusions 1.Lower limits of normal systolic function. Normal left ventricular cavity size. Mild concentric left ventricular hypertrophy. Ejection fraction is visually estimated at 50 %. Inferior wall hypokinesis. Grade II diastolic dysfunction. 2.Mild to moderate mitral valve regurgitation. 3.Mild aortic valve regurgitation. 4.Mild to moderate tricuspid regurgitation. 5.Small pericardial effusion. Pleural effusion seen. 6.Severe biatrial enlargement. 7.Estimated peak PA systolic pressure 48 mmHg based on RA pressure of 15 mmHg. Electronically Signed By: Dirk Wu 27-Sep-2016 15:34:06 -0700 Patient Name: DONALD LEIGH Study Date: 27-Sep-2016 [id number]
[2016-09-27 15:57] LABS: TROPONIN-I 0.041 ng/ml (0.00-0.12)
[2016-09-27 16:18] LABS: CK-MB 1.3 ng/ml (0.0-2.4)
[2016-09-27] MEDS: CEFEPIME 1GM/50 ML (PMX) 50 ML IVPB SCH (19:09)
--- NOTE | 2016-09-27 20:12 | CONS ---
DATE OF ADMISSION: 09/27/2016 DATE OF CONSULTATION: 09/27/2016 INFECTIOUS CONSULTATION: REASON FOR CONSULTATION: Antibiotic management. HISTORY OF PRESENT ILLNESS: Bruce Berry is a 61-year-old male with a number of problems who comes in with shortness of breath status post dialysis and is being seen for antibiotic management. PAST PROBLEMS: 1. Hypertension. 2. End-stage renal disease on hemodialysis. 3. Shortness of breath. The patient had dialysis today and had 3 liters out. He had no nausea, vomiting, fever, or chills, but comes in complaining of shortness of breath. On admission, his white count is 8.1, H and H of 8.9 and 26.8, platelet count 184,000. BUN and creatinine 20/3.82. His random glucose is 101. PAST MEDICAL HISTORY: Operations as outlined. FAMILY HISTORY: Noncontributory. SOCIAL HISTORY: He does not smoke, drink, or abuse drugs. ALLERGIES: NONE TO PENICILLIN, SULFA, OR FOODS. MEDICATION: Per chart. REVIEW OF SYSTEMS: As per HPI. PHYSICAL EXAMINATION: VITAL SIGNS: Patient is febrile to 100.9. SKIN: Without generalized rash. HEENT: Within normal limits. NECK: Supple. Lymph nodes nonpalpable. CHEST: Decreased breath sounds at the bases. HEART: Without murmur or gallop. ABDOMEN: Soft, nontender, without organosplenomegaly or masses. EXTREMITIES: Without cyanosis, clubbing, or edema. RECTAL AND GENITAL: Exam is deferred. NEUROLOGICAL: No focal neurological abnormalities. DIAGNOSTIC DATA: A chest x-ray shows large right pleural effusion with vascular congestion, superimposed right lower lobe pneumonia cannot be excluded. Right dialysis catheter tip overlying the cavoatrial junction. White count today 7.8. BUN and creatinine is 25/4.61. Liver function tests are within normal limits. IMPRESSION AND PLAN: The patient was begun on vancomycin and cefepime. The etiologies of his sepsis are either primary pneumonia or infected dialysis catheter. The patient does put out some urine, so urinary tract infection is possible too and urine culture has been done. A urinalysis also has been ordered. The patient was seen by Dr. Zimmerman in renal consultation. I will dictate my findings to the hospitalists and Dr. Zimmerman. Dictated By: Uche Marsh MD JD/deonte/elma /Document#: [id number]
[2016-09-27] MEDS: TAMSULOSIN (SR) 0.4 MG CAP PO SCH (21:02)
[2016-09-28] VITALS (17 sets, daily range): BP systolic 123–171; BP diastolic 72–103; PULSE 14–87; RESP 17–19
[2016-09-28 07:57] LABS: BASOPHIL # 0.1 10^3/ul (0.0-0.1); BASOPHILS % 1.2 % (0.0-2.0); EOSINOPHILS # 0.5 10^3/ul (0.0-0.5); EOSINOPHILS % 6.6 % (0.0-7.0); HEMATOCRIT 23.4 % (42.0-52.0); HEMOGLOBIN 7.6 g/dl (14.0-18.0); LYMPHOCYTES # 1.9 10^3/ul (0.8-2.9); LYMPHOCYTES % 27.1 % (15.0-51.0); MEAN CORPUSCULAR HEMOGLOBIN 29.7 pg (29.0-33.0); MEAN CORPUSCULAR HGB CONC 32.5 g/dl (32.0-37.0); MEAN CORPUSCULAR VOLUME 91.4 fl (82.0-101.0); MEAN PLATELET VOLUME 9.6 fl (7.4-10.4); MONOCYTE # 0.6 10^3/ul (0.3-0.9); MONOCYTES % 9.2 % (0.0-11.0); NEUTROPHILS % 55.6 % (39.0-77.0); PLATELET COUNT 152 10^3/UL (140-415); RED BLOOD COUNT 2.56 10^6/ul (4.70-6.10); RED CELL DISTRIBUTION WIDTH 15.9 % (11.5-14.5); WHITE BLOOD COUNT 6.8 10^3/ul (4.8-10.8)
[2016-09-28 08:20] LABS: CALCIUM 8.5 mg/dl (8.4-10.2); CREATININE 5.86 mg/dl (0.61-1.24); POTASSIUM 4.3 mmol/L (3.5-5.1)
[2016-09-28] MEDS: HEPARIN 5,000 UNIT/0.5 ML VIAL SC SCH ×2 (09:00→20:49)
[2016-09-28] MEDS: METOPROLOL 50 MG TAB PO SCH ×3 (09:00→20:48)
[2016-09-28] MEDS: TAMSULOSIN (SR) 0.4 MG CAP PO SCH ×2 (09:58→20:47)
[2016-09-28] MEDS: MULTIVIT/CA CARB/B CMPLX/FA TAB PO SCH (09:58)
[2016-09-28] MEDS: DOCUSATE SODIUM 100 MG CAP PO SCH ×2 (09:59→20:47)
[2016-09-28] MEDS: PANTOPRAZOLE (EC) 40 MG TAB PO SCH (09:59)
--- NOTE | 2016-09-28 12:06 | RADRPT ---
PROCEDURE: US Renal CLINICAL INDICATION: Hydronephrosis. TECHNIQUE: Multiple sonographic images of the kidneys and bladder were obtained. Evaluation of th e kidneys and bladder was performed as well with catherine scale and color and Doppler evaluation using a curved array transducer. The images were reviewed on a high-resolution PACS workstation. COMPARISON: No prior studies are available for comparison. FINDINGS: The right kidney measures 9.4 cm. The left kidney measures 8.5 cm. There is normal echogenicity within the parenchyma of the kidneys bilaterally. There is bilateral hydronephrosis, left greater than right.. No perinephric fluid collection is seen. Mckeon catheter in the urinary bladder. IMPRESSION: 1. Bilateral hydronephrosis, left greater than right. RPTAT: [facility] Physician Jorge Date Time Electronically viewed and signed by Physician Jorge on 09/28/2016 12:06 /
--- NOTE | 2016-09-28 15:54 | CONS ---
Date/Time of Note Date/Time of Note DATE: 09/28/16 TIME: 15:51 Assessment/Plan Assessment/Plan Chief Complaint/Hosp Course Acute on chronic diastolic heart failure: decompensated by exam. May have a component of PNA as well with fevers and possible infiltrate. EF ~50%. Better but still needs volume removed Fever/sepsis: possible PNA but UA is suspicious as well (makes minimal urine) ESRD on HD: TTS. Needs extra sessions for volume removal HTN: BP uncontrolled on multiple meds. Volume overload may also be contributing. Now better -HD per nephrology, recommend extra sessions (2-3 days in a row) -antibiotics per primary/ID teams -amlodipine 10mg -clonidine 0.2mg TID -metoprolol 50mg TID -hydralazine 100mg TID -lisinopril 20mg BID Problems: Consultation Date/Type/Reason Admit Date/Time Sep 27, 2016 at 05:51 Initial Consult Date 09/27/16 Type of Consultation: Cardiology Referring Provider: ANUM SYED 24 HR Interval Summary Free Text/Dictation S/p HD yesterday. Feels much better, SOB significantly improved. No chest pain Exam/Review of Systems Vital Signs Vitals Vital Signs Date Time Temp Pulse Resp B/P Pulse Ox O2 Delivery O2 Flow Rate FiO2 09/28/16 14:45 78 09/28/16 13:45 16 09/28/16 12:22 98.2 157/93 99 09/27/16 20:00 Nasal Cannula 2.0 Intake and Output 09/27/16 09/27/16 09/28/16 15:00 23:00 07:00 Intake Total 50 ml 400 ml 500 ml Output Total 4000 ml 1000 ml Balance 50 ml -3600 ml -500 ml Exam Constitutional: alert, oriented Psych: no complaints Head: atraumatic, normocephalic Neck: jvd (8cm) Respiratory: crackles/rales, diminished breath sounds, No clear to auscultation Cardiovascular: edema (trace), regular rate and rhythm Neurological: nl mental status, nl speech Results Result Diagram: 09/28/1618 09/28/16 0718 Results 24 hrs Laboratory Tests Test 09/28/16 07:18 White Blood Count 6.8 Red Blood Count 2.56 L Hemoglobin 7.6 L Hematocrit 23.4 L Mean Corpuscular Volume 91.4 Mean Corpuscular Hemoglobin 29.7 Mean Corpuscular Hemoglobin Concent 32.5 Red Cell Distribution Width 15.9 H Platelet Count 152 Mean Platelet Volume 9.6 Neutrophils % 55.6 Lymphocytes % 27.1 Monocytes % 9.2 Eosinophils % 6.6 Basophils % 1.2 Nucleated Red Blood Cells % 0.0 Neutrophils # (Manual) 4 Lymphocytes # 1.9 Monocytes # 0.6 Eosinophils # 0.5 Basophils # 0.1 Nucleated Red Blood Cells # 0.0 Sodium Level 136 Potassium Level 4.3 Chloride Level 93 L Carbon Dioxide Level 29 Anion Gap 18 H Blood Urea Nitrogen 35 H Creatinine 5.86 H Glucose Level 83 Calcium Level 8.5 Medications Medications Current Medications Cefepime HCl (Maxipime 1gm/50 ml (Pmx)) 50 ml @ 100 mls/hr Q24H IVPB Last administered on 09/27/16 19:09; Admin Dose 100 MLS/HR; Start 09/27/16 at 17:00 Amiodarone HCl (Cordarone) 200 mg DAILY PO Last administered on 09/27/16 10:19 ; Admin Dose 200 MG; Start 09/27/16 at 09:00 Amlodipine Besylate (Norvasc) 10 mg DAILY PO Last administered on 09/27/16 10: 18; Admin Dose 10 MG; Start 09/27/16 at 09:00 Clonidine (Catapres) 0.2 mg Q8 PO Last administered on 09/28/16 06:37; Admin Dose 0.2 MG; Start 09/27/16 at 08:30 Hydralazine HCl (Apresoline) 100 mg TID PO Last administered on 09/27/16 20:52 ; Admin Dose 100 MG; Start 09/27/16 at 09:00 Lisinopril (Zestril) 20 mg BID PO Last administered on 09/27/16 20:53; Admin Dose 20 MG; Start 09/27/16 at 09:00 Metoprolol Tartrate (Lopressor) 50 mg TID PO Last administered on 09/27/16 20: 53; Admin Dose 50 MG; Start 09/27/16 at 09:00 Pantoprazole (Protonix Tab) 40 mg DAILY PO Last administered on 09/28/16 09:59 ; Admin Dose 40 MG; Start 09/27/16 at 09:00 Multivit/Ca Carb/ B Cmplx/FA/Prenat (Rosalba-Caitlin) 1 tab DAILY PO Last administered on 09/28/16 09:58; Admin Dose 1 TAB; Start 09/27/16 at 09:00 Hydralazine HCl (Apresoline) 20 mg Q6H PRN IV sbp>170mmhg; Start 09/27/16 at 08 :30 Labetalol HCl (Labetalol) 20 mg Q4H PRN IV sbp>160mmhg; Start 09/27/16 at 08:30 Docusate Sodium (Colace) 100 mg BID PO Last administered on 09/28/16 09:59; Admin Dose 100 MG; Start 09/27/16 at 09:00 Heparin Sodium (Porcine) (Heparin (5000 Units/0.5 ml)) 5,000 unit BID SC Last administered on 09/27/16 20:56; Admin Dose 5,000 UNIT; Start 09/27/16 at 09:00 Tamsulosin HCl (Flomax) 0.4 mg BID PO Last administered on 09/28/16 09:58; Admin Dose 0.4 MG; Start 09/27/16 at 21:00 Miscellaneous Information (*Rx Drug Level Order Reminder*) RANDOM VANCOMYCIN LEVEL 8... ONCE ONCE XX ; Start 09/29/16 at 05:00; Stop 09/29/16 at 05:01 CON PERRIN Sep 28, 2016 15:54
[2016-09-28] MEDS: AMLODIPINE 10 MG TAB PO SCH (17:37)
[2016-09-28] MEDS: CEFEPIME 1GM/50 ML (PMX) 50 ML IVPB SCH (17:38)
[2016-09-28] MEDS: LISINOPRIL 20 MG TAB PO SCH ×2 (17:38→20:48)
[2016-09-28] MEDS: AMIODARONE 200 MG TAB PO SCH (17:38)
--- NOTE | 2016-09-28 17:56 | PN ---
Date/Time of Note Date/Time of Note DATE: 09/28/16 TIME: 17:53 Assessment/Plan VTE Prophylaxis VTE Prophylaxis Intervention: heparin Lines/Catheters IV Catheter Type (from Nrs): Saline Lock Urinary Cath still in place: Yes Reason Cath still needed: urinary retention Assessment/Plan Chief Complaint/Hosp Course 61 yo male with ESRD of unclear etiology, hypertension, and BPH who presents with pleural effusion and bladder outlet obstruction causing b/l hydronephrosis Pleural effusion likely from acute diastolic CHF exacerbation: - Uncomplicated appearance on US - Likely from hypervolemia 2/2 ESRD/HFpEF - Thoracentesis to exclude pneumonia given fevers ESRD: - Unclear etiology of renal disease - Clearly makes urine and has symptomatic bladder outlet obstruction - HD per renal, needs more volume off Hypertension: - Continue home meds BPH leading to acute EWING and hydronephrosis: - Increase flomax to 0.4 BID - Start finasteride - Consult urology - Continue barraza for now Complicated UTI: - Continue cefepime - Await sensitivities, no growth so far unfortunately Discharge plan pending Problems: Subjective 24 Hr Interval Summary Free Text/Dictation Received HD today, > 3 L off Feeling well, no complaints Passing very bloody urine via barraza Renal US showing b/l hydro Exam/Review of Systems Vital Signs Vitals Vital Signs Date Time Temp Pulse Resp B/P Pulse Ox O2 Delivery O2 Flow Rate FiO2 09/28/16 16:45 85 09/28/16 16:45 16 09/28/16 12:22 98.2 157/93 99 09/27/16 20:00 Nasal Cannula 2.0 Intake and Output 09/27/16 09/27/16 09/28/16 14:59 22:59 06:59 Intake Total 50 ml 400 ml 500 ml Output Total 4000 ml 1000 ml Balance 50 ml -3600 ml -500 ml Exam Constitutional: No alert, No distress, No frail, No non-verbal, No obese, No oriented, No other, No well developed Psych: No anxiety, No confusion, No depression, No nl mood/affect, No no complaints, No other, No suicidal Head: No atraumatic, No hematomas, No lacerations, No normocephalic, No other Neck: jvd Cardiovascular: No S3, No S4, No bruits, No diastolic murmur, No edema, No gallop, No irregular rhythm, No jugular venous distention (JVD), No murmurs/ extra sounds, No nl pulses, No other, No regular rate and rhythm, No rub, No systolic murmur Extremities: edema Results Result Diagram: 09/28/16 0718 09/28/16 0718 Results 24 hrs Laboratory Tests Test 09/28/16 07:18 White Blood Count 6.8 Red Blood Count 2.56 L Hemoglobin 7.6 L Hematocrit 23.4 L Mean Corpuscular Volume 91.4 Mean Corpuscular Hemoglobin 29.7 Mean Corpuscular Hemoglobin Concent 32.5 Red Cell Distribution Width 15.9 H Platelet Count 152 Mean Platelet Volume 9.6 Neutrophils % 55.6 Lymphocytes % 27.1 Monocytes % 9.2 Eosinophils % 6.6 Basophils % 1.2 Nucleated Red Blood Cells % 0.0 Neutrophils # (Manual) 4 Lymphocytes # 1.9 Monocytes # 0.6 Eosinophils # 0.5 Basophils # 0.1 Nucleated Red Blood Cells # 0.0 Sodium Level 136 Potassium Level 4.3 Chloride Level 93 L Carbon Dioxide Level 29 Anion Gap 18 H Blood Urea Nitrogen 35 H Creatinine 5.86 H Glucose Level 83 Calcium Level 8.5 Medications Medications Current Medications Cefepime HCl (Maxipime 1gm/50 ml (Pmx)) 50 ml @ 100 mls/hr Q24H IVPB Last administered on 09/28/16 17:38; Admin Dose 100 MLS/HR; Start 09/27/16 at 17:00 Amiodarone HCl (Cordarone) 200 mg DAILY PO Last administered on 09/28/16 17:38 ; Admin Dose 200 MG; Start 09/27/16 at 09:00 Amlodipine Besylate (Norvasc) 10 mg DAILY PO Last administered on 09/28/16 17: 37; Admin Dose 10 MG; Start 09/27/16 at 09:00 Clonidine (Catapres) 0.2 mg Q8 PO Last administered on 09/28/16 17:35; Admin Dose 0.2 MG; Start 09/27/16 at 08:30 Hydralazine HCl (Apresoline) 100 mg TID PO Last administered on 09/28/16 17:38 ; Admin Dose 100 MG; Start 09/27/16 at 09:00 Lisinopril (Zestril) 20 mg BID PO Last administered on 09/28/16 17:38; Admin Dose 20 MG; Start 09/27/16 at 09:00 Metoprolol Tartrate (Lopressor) 50 mg TID PO Last administered on 09/28/16 17: 38; Admin Dose 50 MG; Start 09/27/16 at 09:00 Pantoprazole (Protonix Tab) 40 mg DAILY PO Last administered on 09/28/16 09:59 ; Admin Dose 40 MG; Start 09/27/16 at 09:00 Multivit/Ca Carb/ B Cmplx/FA/Prenat (Rosalba-Caitlin) 1 tab DAILY PO Last administered on 09/28/16 09:58; Admin Dose 1 TAB; Start 09/27/16 at 09:00 Hydralazine HCl (Apresoline) 20 mg Q6H PRN IV sbp>170mmhg; Start 09/27/16 at 08 :30 Labetalol HCl (Labetalol) 20 mg Q4H PRN IV sbp>160mmhg; Start 09/27/16 at 08:30 Docusate Sodium (Colace) 100 mg BID PO Last administered on 09/28/16 09:59; Admin Dose 100 MG; Start 09/27/16 at 09:00 Heparin Sodium (Porcine) (Heparin (5000 Units/0.5 ml)) 5,000 unit BID SC Last administered on 09/27/16 20:56; Admin Dose 5,000 UNIT; Start 09/27/16 at 09:00 Tamsulosin HCl (Flomax) 0.4 mg BID PO Last administered on 09/28/16 09:58; Admin Dose 0.4 MG; Start 09/27/16 at 21:00 Miscellaneous Information (*Rx Drug Level Order Reminder*) RANDOM VANCOMYCIN LEVEL 8... ONCE ONCE XX ; Start 09/29/16 at 05:00; Stop 09/29/16 at 05:01 MAJOR GARNER MD Sep 28, 2016 17:56
--- NOTE | 2016-09-28 22:02 | PN ---
DATE: 09/28/2016 SUBJECTIVE DATA: Subjective no acute changes. The patient is alert, feels good, denies pain, looks comfortable. No fevers. OBJECTIVE DATA: VITAL SIGNS: Temperature 98.2, with a T-max yesterday of 100.9, pulse is 77, respirations 19, blood pressure 157/93, and saturation 99 on room air. LABORATORY: WBC 6.8, H and H 7.6 and 23.4, and platelets 152. INDWELLINGS: Right chest PermCath. DIAGNOSTICS: Chest x-ray on admission revealed large right pleural effusion with vascular congestion superimposed right lower lobe pneumonia cannot be excluded. Renal ultrasound revealed bilateral hydronephrosis left greater than right. ANTIMICROBIALS: The patient is on IV cefepime and vancomycin. MICROBIOLOGY: Urine and blood cultures were negative. PHYSICAL EXAMINATION: GENERAL: This is a well-developed, middle-aged man, who is awake, in no distress. HEENT: Head atraumatic, normocephalic. Sclerae anicteric. Buccal mucosa pink. NECK: Supple. CHEST: Chest rise symmetrical. Breath sounds clear. Diminished at bases. HEART: S1, S2. ABDOMEN: Soft, bowel sounds present. EXTREMITIES: Without cyanosis. ASSESSMENT: 1. Resolved respiratory distress likely secondary to fluid overload, rule out underlying pneumonia. 2. End-stage renal disease, hemodialysis dependent. 3. Hematuria with positive urinalysis and evidence of bilateral hydronephrosis per renal ultrasound, left greater than right. 4. Hypertension. 5. Right chest PermCath. PLAN: 1. The patient remains stable. 2. We will continue him on current antimicrobials. 3. Consider Urology evaluation as patient has hematuria. 4. Await for final cultures. 5. Continue hemodialysis per Renal. Dictated By: Nilton Downs NP /deonte/loli /Document#: [id number]
[2016-09-29] VITALS (14 sets, daily range): BP systolic 110–162; BP diastolic 68–91; PULSE 65–74; RESP 17–22
[2016-09-29 06:10] LABS: BASOPHIL # 0.1 10^3/ul (0.0-0.1); BASOPHILS % 1.6 % (0.0-2.0); EOSINOPHILS # 0.5 10^3/ul (0.0-0.5); HEMATOCRIT 31.2 % (42.0-52.0); HEMOGLOBIN 10.4 g/dl (14.0-18.0); LYMPHOCYTES # 1.7 10^3/ul (0.8-2.9); LYMPHOCYTES % 25.4 % (15.0-51.0); MEAN CORPUSCULAR HEMOGLOBIN 29.4 pg (29.0-33.0); MEAN CORPUSCULAR HGB CONC 33.3 g/dl (32.0-37.0); MEAN CORPUSCULAR VOLUME 88.1 fl (82.0-101.0); MEAN PLATELET VOLUME 9.8 fl (7.4-10.4); MONOCYTE # 0.6 10^3/ul (0.3-0.9); MONOCYTES % 9.2 % (0.0-11.0); NEUTROPHILS % 56.5 % (39.0-77.0); PLATELET COUNT 143 10^3/UL (140-415); RED BLOOD COUNT 3.54 10^6/ul (4.70-6.10); RED CELL DISTRIBUTION WIDTH 15.6 % (11.5-14.5); WHITE BLOOD COUNT 6.9 10^3/ul (4.8-10.8)
[2016-09-29 06:40] LABS: IRON 41 ug/dl (35-150)
[2016-09-29 06:44] LABS: CALCIUM 8.2 mg/dl (8.4-10.2); CREATININE 4.39 mg/dl (0.61-1.24); POTASSIUM 3.4 mmol/L (3.5-5.1)
[2016-09-29 06:49] LABS: TOTAL IRON BINDING CAPACITY 147 ug/dl (241-421)
[2016-09-29] MEDS: DOCUSATE SODIUM 100 MG CAP PO SCH ×2 (08:20→21:07)
[2016-09-29] MEDS: MULTIVIT/CA CARB/B CMPLX/FA TAB PO SCH (08:20)
[2016-09-29] MEDS: PANTOPRAZOLE (EC) 40 MG TAB PO SCH (08:20)
[2016-09-29] MEDS: LISINOPRIL 20 MG TAB PO SCH ×2 (08:20→21:08)
[2016-09-29] MEDS: AMLODIPINE 10 MG TAB PO SCH (08:20)
[2016-09-29] MEDS: TAMSULOSIN (SR) 0.4 MG CAP PO SCH ×2 (08:20→21:07)
[2016-09-29] MEDS: AMIODARONE 200 MG TAB PO SCH (08:21)
[2016-09-29] MEDS: METOPROLOL 50 MG TAB PO SCH ×3 (08:21→21:07)
[2016-09-29] MEDS: HEPARIN 5,000 UNIT/0.5 ML VIAL SC SCH (08:26)
[2016-09-29] MEDS ORDERED: VANCOMYCIN 1 GM in NS 250 ML IVPB SCH (11:30)
--- NOTE | 2016-09-29 11:40 | CONS ---
Date/Time of Note Date/Time of Note DATE: 09/29/16 TIME: 11:37 Assessment/Plan Assessment/Plan Chief Complaint/Hosp Course Acute on chronic diastolic heart failure: decompensated by exam on admission. EF ~50%. Now euvolemic UTI: urine with enterococcus Hematuria: per pt he has had a cystoscopy before ESRD on HD: TTS HTN: BP uncontrolled on multiple meds on admission. Volume overload also contributing. Now better -HD per nephrology -antibiotics per primary/ID teams -amlodipine 10mg -clonidine 0.2mg TID -metoprolol 50mg TID -hydralazine 100mg TID -lisinopril 20mg BID Problems: Consultation Date/Type/Reason Admit Date/Time Sep 27, 2016 at 05:51 Initial Consult Date 09/27/16 Type of Consultation: Cardiology Referring Provider: ANUM SYED 24 HR Interval Summary Free Text/Dictation No o/n events. Urine with enterococcus. Has hematuria and is pending urology eval Exam/Review of Systems Vital Signs Vitals Vital Signs Date Time Temp Pulse Resp B/P Pulse Ox O2 Delivery O2 Flow Rate FiO2 09/29/16 08:13 71 09/29/16 08:00 Nasal Cannula 2.0 09/29/16 07:20 98.6 22 162/90 96 Intake and Output 09/28/16 09/28/16 09/29/16 15:00 23:00 07:00 Intake Total 1600 ml 200 ml Output Total 4900 ml 300 ml Balance -3300 ml -100 ml Exam Constitutional: alert, oriented Psych: nl mood/affect, no complaints Head: atraumatic, normocephalic Neck: jvd (7cm) Respiratory: clear to auscultation, diminished breath sounds, No crackles/rales Cardiovascular: regular rate and rhythm, systolic murmur (2/6 ERICKSON), No edema Gastrointestinal: non-tender, soft Neurological: nl mental status, nl speech Results Result Diagram: 09/29/1651009/29/16 0511 Results 24 hrs Laboratory Tests Test 09/29/16 05:11 09/29/16 05:48 White Blood Count 6.9 Red Blood Count 3.54 #L Hemoglobin 10.4 #L Hematocrit 31.2 #L Mean Corpuscular Volume 88.1 Mean Corpuscular Hemoglobin 29.4 Mean Corpuscular Hemoglobin Concent 33.3 Red Cell Distribution Width 15.6 H Platelet Count 143 Mean Platelet Volume 9.8 Neutrophils % 56.5 Lymphocytes % 25.4 Monocytes % 9.2 Eosinophils % 7.0 Basophils % 1.6 Nucleated Red Blood Cells % 0.0 Neutrophils # (Manual) 4 Lymphocytes # 1.7 Monocytes # 0.6 Eosinophils # 0.5 Basophils # 0.1 Nucleated Red Blood Cells # 0.0 Sodium Level 133 L Potassium Level 3.4 L Chloride Level 92 L Carbon Dioxide Level 31 Anion Gap 13 Blood Urea Nitrogen 24 #H Creatinine 4.39 #H Glucose Level 85 Calcium Level 8.2 L Iron Level 41 Total Iron Binding Capacity 147 L Percent Iron Saturation 28 Ferritin 930.0 H Random Vancomycin Level 12.2 Hepatitis B Surface Antigen NEGATIVE Hepatitis C Antibody NEGATIVE Lab Scanned Report BLOOD TRANSFUSION Medications Medications Current Medications Cefepime HCl (Maxipime 1gm/50 ml (Pmx)) 50 ml @ 100 mls/hr Q24H IVPB Last administered on 09/28/16 17:38; Admin Dose 100 MLS/HR; Start 09/27/16 at 17:00 Amiodarone HCl (Cordarone) 200 mg DAILY PO Last administered on 09/29/16 08:21 ; Admin Dose 200 MG; Start 09/27/16 at 09:00 Amlodipine Besylate (Norvasc) 10 mg DAILY PO Last administered on 09/29/16 08: 20; Admin Dose 10 MG; Start 09/27/16 at 09:00 Clonidine (Catapres) 0.2 mg Q8 PO Last administered on 09/29/16 06:01; Admin Dose 0.2 MG; Start 09/27/16 at 08:30 Hydralazine HCl (Apresoline) 100 mg TID PO Last administered on 09/29/16 08:20 ; Admin Dose 100 MG; Start 09/27/16 at 09:00 Lisinopril (Zestril) 20 mg BID PO Last administered on 09/29/16 08:20; Admin Dose 20 MG; Start 09/27/16 at 09:00 Metoprolol Tartrate (Lopressor) 50 mg TID PO Last administered on 09/29/16 08: 21; Admin Dose 50 MG; Start 09/27/16 at 09:00 Pantoprazole (Protonix Tab) 40 mg DAILY PO Last administered on 09/29/16 08:20 ; Admin Dose 40 MG; Start 09/27/16 at 09:00 Multivit/Ca Carb/ B Cmplx/FA/Prenat (Rosalba-Caitlin) 1 tab DAILY PO Last administered on 09/29/16 08:20; Admin Dose 1 TAB; Start 09/27/16 at 09:00 Hydralazine HCl (Apresoline) 20 mg Q6H PRN IV sbp>170mmhg; Start 09/27/16 at 08 :30 Labetalol HCl (Labetalol) 20 mg Q4H PRN IV sbp>160mmhg; Start 09/27/16 at 08:30 Docusate Sodium (Colace) 100 mg BID PO Last administered on 09/29/16 08:20; Admin Dose 100 MG; Start 09/27/16 at 09:00 Heparin Sodium (Porcine) (Heparin (5000 Units/0.5 ml)) 5,000 unit BID SC Last administered on 09/27/16 20:56; Admin Dose 5,000 UNIT; Start 09/27/16 at 09:00 Tamsulosin HCl 0.4 mg 0.4 mg BID PO Last administered on 09/29/16 08:20; Admin Dose 0.4 MG; Start 09/27/16 at 21:00 Vancomycin HCl (Vancocin) 250 ml @ 125 mls/hr ONCE IVPB ; Start 09/29/16 at 11: 30; Stop 09/29/16 at 17:00 CON PERRIN Sep 29, 2016 11:40
[2016-09-29] MEDS ORDERED: LIDOCAINE 1% (MPF) 5 ML VIAL ONE (12:43)
--- NOTE | 2016-09-29 13:33 | RADRPT ---
PROCEDURE: US guided right thoracentesis. CLINICAL INDICATION: Shortness of breath. Right pleural effusion. TECHNIQUE: Prior to the procedure, informed consent was obtained. The risks, benefits, and alternatives were e xplained to the patient or the patient's family, including but not limited to bleeding, infection, p ain, visceral or vascular damage, shock, pneumothorax, chest tube placement, air embolism, and . The patient or the patient's family understood the risks and the alternatives and wished to proce ed with the study. Informed written consent was obtained. A procedural pause was performed. The patient's name, date of , and procedure to be performed were verified. Ultrasound of the right hemithorax was performed in the axial and sagittal planes. A right pleural e ffusion is noted. Utilizing ultrasound guidance, optimal location for entry to the pleural cavity wa s ascertained. The overlying skin was prepped and draped in the usual sterile fashion. Approximate ly 10 ml of 1% Xylocaine was injected locally for pain control. Using ultrasound guidance, a 5-Fren ch Yueh catheter was introduced into the right pleural space without difficulty. Fluid was aspirated . COMPARISON: None. FINDINGS: Initial ultrasound demonstrates fluid in the right pleural space. Approximately 1.0liters of serous fluid was aspirated and discarded. IMPRESSION: 1. Satisfactory ultrasound-guided right thoracentesis. RPTAT: QQ .Fortino Regalado MD, Date Time Electronically viewed and signed by .Fortino Regalado MD, on 09/29/2016 13:33 .R/
--- NOTE | 2016-09-29 14:00 | RADRPT ---
PROCEDURE: XR Chest. CLINICAL INDICATION: Status post thoracentesis TECHNIQUE: Single frontal chest x-ray. COMPARISON: 09/28/2016 FINDINGS: The right pleural effusion is decreased, status post interval thoracentesis. There is no evidence o f pneumothorax. There is persistent small right pleural effusion with atelectasis. Underlying cons olidation is not ruled out. The heart size is enlarged. Aortic atherosclerotic calcifications are present. A right Perma-Cath is in place with the tip in the right atrium. The osseous structures are grossly stable IMPRESSION: 1. Decreased right pleural effusion, status post thoracentesis. No evidence of pneumothorax. 2. Persistent right lower lobe hazy density may represent small pleural effusion with atelectasis. Underlying consolidation is not ruled out. 3. Cardiomegaly and aortic atherosclerosis. 4. Stable right Perma-Cath with the tip in the right atrium. RPTAT: JJ .Ezekiel Haider MD, MD Date Time Electronically viewed and signed by .Ezekiel Haider MD, on 09/29/2016 13:59 .A/
--- NOTE | 2016-09-29 16:30 | PN ---
DATE: 09/29/2016 SUBJECTIVE DATA: No acute changes. Patient is sleeping, looks comfortable. No fevers. Urine still looks bloody but more clear. LABORATORY AND DIAGNOSTIC DATA: WBC 6.9, no shift, no bounce. Microbiology: Urine culture growing Enterococcus species but less than 10,000 colonies. Chest x-ray this morning revealed decreased right pleural effusion status post thoracentesis. INDWELLING: Right chest Perma-Cath. ANTIMICROBIALS: 1. IV vancomycin. 2. Cefepime. OBJECTIVE DATA: VITAL SIGNS: Temperature 97.6, pulse 73, respirations 20, blood pressure 110/68, saturation 97 on nasal cannula. GENERAL: Well-developed, fragile, middle-aged man, who is alert, in no distress. HEENT: Head atraumatic, normocephalic. Sclerae anicteric. Buccal mucosa pink. NECK: Supple. CHEST: Rise symmetrical. Breath sounds diminished at the bases. HEART: S1, S2. ABDOMEN: Soft, bowel sounds present. EXTREMITIES: Without cyanosis. ASSESSMENT: 1. Status post respiratory distress. 2. Pleural effusion. Possible pneumonia, status post thoracentesis. 3. Hematuria with urine culture growing Enterococcus species less than 10,000 colonies. 4. End-stage renal disease. 5. Hypertension. 6. Right chest Perma-Cath. PLAN: Patient remains stable. Continue present care, antibiotics. Await for pleural fluid cultures. Dictated By: Nilton Downs NP /deonte/tad /Document#: [id number]
--- NOTE | 2016-09-29 16:46 | PN ---
Date/Time of Note Date/Time of Note DATE: 09/29/16 TIME: 16:40 Assessment/Plan VTE Prophylaxis VTE Prophylaxis Intervention: heparin Lines/Catheters IV Catheter Type (from Nrs): Saline Lock Urinary Cath still in place: Yes Reason Cath still needed: urinary retention Assessment/Plan Chief Complaint/Hosp Course 61 yo male with ESRD of unclear etiology, hypertension, and BPH who presents with pleural effusion and bladder outlet obstruction causing b/l hydronephrosis Pleural effusion likely from acute diastolic CHF exacerbation: - Uncomplicated appearance on US, s/p therapeutic/diagnostic thoracentesis today. Await lab results - Likely from hypervolemia 2/2 ESRD/HFpEF ESRD: - Unclear etiology of renal disease - Clearly makes urine - HD per renal, needs more volume off Hypertension: - Continue home meds BPH leading to acute EWING and hydronephrosis, hematuria: - Dr Lanza was contacted. Does not feel urgent need to see patient. Says he will see patient prior to discharge and wants to be contacted then - Continue flomax to 0.4 BID - Start finasteride - Continue barraza for now Complicated UTI: - Continue cefepime - Await sensitivities/culture Discharge plan pending Problems: Subjective 24 Hr Interval Summary Free Text/Dictation Went for thoracentesis today, drained > 1 L Feeling well, breathing comfortably Constitutional: No chills, No diaphoresis, No disoriented, No febrile, No improved, No no complaints, No other, No poor po, No requiring IVF, No requiring O2 Eyes: No discharge, No no complaints, No other, No pain, No redness, No visual change ENT: No bleeding, No congestion, No discharge, No dysphagia, No no complaints, No other, No pain, No sore throat Cardiovascular: No chest pain, No edema, No lightheadedness, No no complaints, No orthopenea, No other, No palpitations, No paroxysmal nocturnal dyspnea Exam/Review of Systems Vital Signs Vitals Vital Signs Date Time Temp Pulse Resp B/P Pulse Ox O2 Delivery O2 Flow Rate FiO2 09/29/16 16:16 67 09/29/16 15:32 97.6 21 112/71 99 09/29/16 08:00 Nasal Cannula 2.0 Intake and Output 09/28/16 09/28/16 09/29/16 14:59 22:59 06:59 Intake Total 1600 ml 200 ml Output Total 4900 ml 300 ml Balance -3300 ml -100 ml Exam Well appearing no distress Pleasant ++ JVD Lungs clear Barraza in place with hematuria Results Result Diagram: 09/29/16 0511 09/29/16 0511 Results 24 hrs Laboratory Tests Test 09/29/16 05:11 09/29/16 05:48 White Blood Count 6.9 Red Blood Count 3.54 #L Hemoglobin 10.4 #L Hematocrit 31.2 #L Mean Corpuscular Volume 88.1 Mean Corpuscular Hemoglobin 29.4 Mean Corpuscular Hemoglobin Concent 33.3 Red Cell Distribution Width 15.6 H Platelet Count 143 Mean Platelet Volume 9.8 Neutrophils % 56.5 Lymphocytes % 25.4 Monocytes % 9.2 Eosinophils % 7.0 Basophils % 1.6 Nucleated Red Blood Cells % 0.0 Neutrophils # (Manual) 4 Lymphocytes # 1.7 Monocytes # 0.6 Eosinophils # 0.5 Basophils # 0.1 Nucleated Red Blood Cells # 0.0 Sodium Level 136 Potassium Level 3.4 L Chloride Level 92 L Carbon Dioxide Level 31 Anion Gap 16 Blood Urea Nitrogen 24 #H Creatinine 4.39 #H Glucose Level 85 Calcium Level 8.2 L Iron Level 41 Total Iron Binding Capacity 147 L Percent Iron Saturation 28 Ferritin 930.0 H Random Vancomycin Level 12.2 Hepatitis B Surface Antigen NEGATIVE Hepatitis C Antibody NEGATIVE Lab Scanned Report BLOOD TRANSFUSION Medications Medications Current Medications Cefepime HCl (Maxipime 1gm/50 ml (Pmx)) 50 ml @ 100 mls/hr Q24H IVPB Last administered on 09/28/16 17:38; Admin Dose 100 MLS/HR; Start 09/27/16 at 17:00 Amiodarone HCl (Cordarone) 200 mg DAILY PO Last administered on 09/29/16 08:21 ; Admin Dose 200 MG; Start 09/27/16 at 09:00 Amlodipine Besylate (Norvasc) 10 mg DAILY PO Last administered on 09/29/16 08: 20; Admin Dose 10 MG; Start 09/27/16 at 09:00 Clonidine (Catapres) 0.2 mg Q8 PO Last administered on 09/29/16 16:04; Admin Dose 0.2 MG; Start 09/27/16 at 08:30 Hydralazine HCl (Apresoline) 100 mg TID PO Last administered on 09/29/16 13:39 ; Admin Dose 100 MG; Start 09/27/16 at 09:00 Lisinopril (Zestril) 20 mg BID PO Last administered on 09/29/16 08:20; Admin Dose 20 MG; Start 09/27/16 at 09:00 Metoprolol Tartrate (Lopressor) 50 mg TID PO Last administered on 09/29/16 13: 39; Admin Dose 50 MG; Start 09/27/16 at 09:00 Pantoprazole (Protonix Tab) 40 mg DAILY PO Last administered on 09/29/16 08:20 ; Admin Dose 40 MG; Start 09/27/16 at 09:00 Multivit/Ca Carb/ B Cmplx/FA/Prenat (Rosalba-Caitlin) 1 tab DAILY PO Last administered on 09/29/16 08:20; Admin Dose 1 TAB; Start 09/27/16 at 09:00 Hydralazine HCl (Apresoline) 20 mg Q6H PRN IV sbp>170mmhg; Start 09/27/16 at 08 :30 Labetalol HCl (Labetalol) 20 mg Q4H PRN IV sbp>160mmhg; Start 09/27/16 at 08:30 Docusate Sodium (Colace) 100 mg BID PO Last administered on 09/29/16 08:20; Admin Dose 100 MG; Start 09/27/16 at 09:00 Heparin Sodium (Porcine) (Heparin (5000 Units/0.5 ml)) 5,000 unit BID SC Last administered on 09/27/16 20:56; Admin Dose 5,000 UNIT; Start 09/27/16 at 09:00 Tamsulosin HCl 0.4 mg 0.4 mg BID PO Last administered on 09/29/16 08:20; Admin Dose 0.4 MG; Start 09/27/16 at 21:00 Vancomycin HCl (Vancocin) 250 ml @ 125 mls/hr ONCE IVPB Last administered on 13:39; Admin Dose 125 MLS/HR; Start 09/29/16 at 11:30; Stop 09/29/16 at 17:00 MAJOR GARNER MD Sep 29, 2016 16:46
[2016-09-29] MEDS: DIPHENHYDRAMINE 25 MG CAP PO PRN (16:56)
[2016-09-29] MEDS: CEFEPIME 1GM/50 ML (PMX) 50 ML IVPB SCH (16:56)
[2016-09-29 18:30] LABS: FLUID TYPE ASCITIES FLUID
[2016-09-29 18:31] LABS: FLUID LD 196 U/L; FLUID TOTAL PROTEIN 2.1 g/dl
[2016-09-29] MEDS ORDERED: HEPARIN 5,000 UNIT/0.5 ML VIAL SC SCH (21:12)
--- NOTE | 2016-09-29 22:20 | CONS ---
Date/Time of Note Date/Time of Note DATE: 09/29/16 TIME: 22:19 Assessment/Plan Assessment/Plan Chief Complaint/Hosp Course Pt has additional problem of hematuria for which he'd need to be followed closely & avioid Heparin Problems: (1) ESRD (end stage renal disease) on dialysis Comment: Hd yesterday without problems Pt needs avf, discussed with Dr Silverman (2) Hematuria Comment: Hematuria improving (3) Hypertension Status: Acute Comment: BP is under control Qualifiers: Hypertension type: essential hypertension Qualified Code: I10 - Essential hypertension (4) Pleural effusion Status: Acute Comment: Improved with HD Additional Assessment/Plan Pt draining bloody urine, must use minimal heparin or none at all. Consultation Date/Type/Reason Admit Date/Time Sep 27, 2016 at 05:51 Initial Consult Date 09/27/16 Type of Consultation: renal Referring Provider: ANUM SYED 24 HR Interval Summary Free Text/Dictation Pt is more comfortable & cooperative Exam/Review of Systems Vital Signs Vitals Vital Signs Date Time Temp Pulse Resp B/P Pulse Ox O2 Delivery O2 Flow Rate FiO2 09/29/16 21:28 65 141/91 09/29/16 19:34 97.7 20 97 09/29/16 08:00 Nasal Cannula 2.0 Intake and Output 09/28/16 09/28/16 09/29/16 15:00 23:00 07:00 Intake Total 1600 ml 200 ml Output Total 4900 ml 300 ml Balance -3300 ml -100 ml Exam Constitutional: alert Head: normocephalic ENMT: nl external ears & nose Respiratory: clear to auscultation Cardiovascular: regular rate and rhythm Gastrointestinal: soft Genitourinary - Male: other (Mckeon catheter in place) Extremities: other (no edema) Neurological: BR[employer] II-XII intact Results Hct is stable 31% Result Diagram: 09/29/16 0511 09/29/16 0511 Results 24 hrs Laboratory Tests Test 09/29/16 05:11 09/29/16 05:48 09/29/16 12:30 White Blood Count 6.9 Red Blood Count 3.54 #L Hemoglobin 10.4 #L Hematocrit 31.2 #L Mean Corpuscular Volume 88.1 Mean Corpuscular Hemoglobin 29.4 Mean Corpuscular Hemoglobin Concent 33.3 Red Cell Distribution Width 15.6 H Platelet Count 143 Mean Platelet Volume 9.8 Neutrophils % 56.5 Lymphocytes % 25.4 Monocytes % 9.2 Eosinophils % 7.0 Basophils % 1.6 Nucleated Red Blood Cells % 0.0 Neutrophils # (Manual) 4 Lymphocytes # 1.7 Monocytes # 0.6 Eosinophils # 0.5 Basophils # 0.1 Nucleated Red Blood Cells # 0.0 Sodium Level 136 Potassium Level 3.4 L Chloride Level 92 L Carbon Dioxide Level 31 Anion Gap 16 Blood Urea Nitrogen 24 #H Creatinine 4.39 #H Glucose Level 85 Calcium Level 8.2 L Iron Level 41 Total Iron Binding Capacity 147 L Percent Iron Saturation 28 Ferritin 930.0 H Random Vancomycin Level 12.2 Hepatitis B Surface Antigen NEGATIVE Hepatitis C Antibody NEGATIVE Lab Scanned Report BLOOD TRANSFUSION Body Fluid Type ASCITIES FLUID Body Fluid Total Protein 2.1 Body Fluid Lactate Dehydrogenase 196 Medications Medications Current Medications Cefepime HCl (Maxipime 1gm/50 ml (Pmx)) 50 ml @ 100 mls/hr Q24H IVPB Last administered on 09/29/16 16:56; Admin Dose 100 MLS/HR; Start 09/27/16 at 17:00 Amiodarone HCl (Cordarone) 200 mg DAILY PO Last administered on 09/29/16 08:21 ; Admin Dose 200 MG; Start 09/27/16 at 09:00 Amlodipine Besylate (Norvasc) 10 mg DAILY PO Last administered on 09/29/16 08: 20; Admin Dose 10 MG; Start 09/27/16 at 09:00 Clonidine (Catapres) 0.2 mg Q8 PO Last administered on 09/29/16 21:28; Admin Dose 0.2 MG; Start 09/27/16 at 08:30 Hydralazine HCl (Apresoline) 100 mg TID PO Last administered on 09/29/16 21:08 ; Admin Dose 100 MG; Start 09/27/16 at 09:00 Lisinopril (Zestril) 20 mg BID PO Last administered on 09/29/16 21:08; Admin Dose 20 MG; Start 09/27/16 at 09:00 Metoprolol Tartrate (Lopressor) 50 mg TID PO Last administered on 09/29/16 21: 07; Admin Dose 50 MG; Start 09/27/16 at 09:00 Pantoprazole (Protonix Tab) 40 mg DAILY PO Last administered on 09/29/16 08:20 ; Admin Dose 40 MG; Start 09/27/16 at 09:00 Multivit/Ca Carb/ B Cmplx/FA/Prenat (Rosalba-Caitlin) 1 tab DAILY PO Last administered on 09/29/16 08:20; Admin Dose 1 TAB; Start 09/27/16 at 09:00 Hydralazine HCl (Apresoline) 20 mg Q6H PRN IV sbp>170mmhg; Start 09/27/16 at 08 :30 Labetalol HCl (Labetalol) 20 mg Q4H PRN IV sbp>160mmhg; Start 09/27/16 at 08:30 Docusate Sodium (Colace) 100 mg BID PO Last administered on 09/29/16 21:07; Admin Dose 100 MG; Start 09/27/16 at 09:00 Tamsulosin HCl (Flomax) 0.4 mg BID PO Last administered on 09/29/16 21:07; Admin Dose 0.4 MG; Start 09/27/16 at 21:00 Diphenhydramine HCl (Benadryl) 25 mg Q6H PRN PO ITCHING Last administered on 16:56; Admin Dose 25 MG; Start 09/29/16 at 17:00 Heparin Sodium (Porcine) (Heparin (5000 Units/0.5 ml)) 5,000 unit BID SC ; Start 09/29/16 at 21:12; Status Future Hold KISHOR MORRIS MD Sep 29, 2016 22:19
[2016-09-30] VITALS (19 sets, daily range): BP systolic 110–148; BP diastolic 55–90; PULSE 59–77; RESP 15–20
[2016-09-30] MEDS: MULTIVIT/CA CARB/B CMPLX/FA TAB PO SCH (07:51)
[2016-09-30] MEDS: AMIODARONE 200 MG TAB PO SCH (07:52)
[2016-09-30] MEDS: AMLODIPINE 10 MG TAB PO SCH (07:52)
[2016-09-30] MEDS: DOCUSATE SODIUM 100 MG CAP PO SCH ×2 (07:52→20:50)
[2016-09-30] MEDS: LISINOPRIL 20 MG TAB PO SCH ×2 (07:52→20:51)
[2016-09-30] MEDS: METOPROLOL 50 MG TAB PO SCH ×3 (07:52→20:50)
[2016-09-30] MEDS: PANTOPRAZOLE (EC) 40 MG TAB PO SCH (07:52)
[2016-09-30] MEDS: TAMSULOSIN (SR) 0.4 MG CAP PO SCH ×2 (07:54→20:50)
--- NOTE | 2016-09-30 09:49 | RADRPT ---
PROCEDURE: US bilateral upper extremity Venous. CLINICAL INDICATION: End-stage renal disease, vein mapping TECHNIQUE: Multiple sonographic images of the bilateral upper lower extremity deep an superficial venous system was obtained utilizing grayscale, color-flow, compressive sonography and doppler imagi ng with augmentation. Measurements were performed. The images were reviewed on a PACS workstation. COMPARISON: None. FINDINGS: The bilateral subclavian veins, axillary veins, cephalic and brachial veins are patent. RIGHT Right basilic vein size: Proximal: 6.3 mm Mid aspect: 5.1 mm Distal: 4.2 mm Right basilic vein size in the forearm: Proximal: 3.1 mm Mid aspect: 3.5 mm Distal: 2.8 mm Right cephalic vein size: Proximal: 4.9 mm Mid aspect: 5.0 mm Distal: 4.9 mm Right cephalic vein size in the forearm: Proximal: 4.0 mm Mid aspect: 3.4 mm Distal: 2.9 mm LEFT Left basilic vein size: Proximal: 5.5 mm Mid aspect: 5.9 mm Distal: 5.9 mm Left basilic vein size in the forearm: Proximal: 2.0 mm Mid aspect: 1.2 mm Distal: 1.1 mm Left cephalic vein size: Proximal: 2.5 mm Mid aspect: 3.3 mm Distal: 2.7 mm Left cephalic vein size in the forearm: Proximal: 2.3 mm Mid aspect: 1.5 mm Distal: 1.2 mm IMPRESSION: Vein mapping as described. RPTAT: AA .Alex Faulkner MD, Date Time Electronically viewed and signed by .Alex Faulkner MD, on 09/30/2016 09:48 .S/
[2016-09-30] MEDS: ZYVOX 600 MG TAB PO SCH ×2 (11:53→20:49)
--- NOTE | 2016-09-30 12:21 | CONS ---
Date/Time of Note Date/Time of Note DATE: 09/30/16 TIME: 12:20 Assessment/Plan Assessment/Plan Chief Complaint/Hosp Course Acute on chronic diastolic heart failure: decompensated by exam on admission. EF ~50%. Now euvolemic Hematuria: per pt he has had a cystoscopy before ESRD on HD: TTS HTN: BP uncontrolled on multiple meds on admission. Volume overload also contributing. Now better -HD per nephrology -antibiotics per primary/ID teams -amlodipine 10mg -clonidine 0.2mg TID -metoprolol 50mg TID -hydralazine 100mg TID -lisinopril 20mg BID Problems: Consultation Date/Type/Reason Admit Date/Time Sep 27, 2016 at 05:51 Initial Consult Date 09/27/16 Type of Consultation: Cardiology Referring Provider: ANUM SYED 24 HR Interval Summary Free Text/Dictation No o/n events. Awaiting urology eval Exam/Review of Systems Vital Signs Vitals Vital Signs Date Time Temp Pulse Resp B/P Pulse Ox O2 Delivery O2 Flow Rate FiO2 09/30/16 12:10 67 09/30/16 11:33 97.6 20 111/72 95 09/29/16 20:00 Nasal Cannula 2.0 Intake and Output 09/29/16 09/29/16 09/30/16 15:00 23:00 07:00 Intake Total 480 ml 400 ml Output Total 350 ml 300 ml Balance 130 ml 100 ml Exam Constitutional: alert, oriented Psych: nl mood/affect, no complaints Head: atraumatic, normocephalic Eyes: nl conjunctiva ENMT: nl external ears & nose Neck: No jvd Respiratory: clear to auscultation, No crackles/rales Cardiovascular: regular rate and rhythm, No edema Gastrointestinal: non-tender, soft Neurological: nl mental status Results Result Diagram: 09/29/16 0511 09/29/16 0511 Results 24 hrs Laboratory Tests Test 09/29/16 12:30 Body Fluid Type ASCITIES FLUID Body Fluid Total Protein 2.1 Body Fluid Lactate Dehydrogenase 196 Medications Medications Current Medications Amiodarone HCl (Cordarone) 200 mg DAILY PO Last administered on 09/30/16t 07:52 ; Admin Dose 200 MG; Start 09/27/16 at 09:00 Amlodipine Besylate (Norvasc) 10 mg DAILY PO Last administered on 09/30/16 07: 52; Admin Dose 10 MG; Start 09/27/16 at 09:00 Clonidine (Catapres) 0.2 mg Q8 PO Last administered on 09/30/16 05:40; Admin Dose 0.2 MG; Start 09/27/16 at 08:30 Hydralazine HCl (Apresoline) 100 mg TID PO Last administered on 09/30/16 07:51 ; Admin Dose 100 MG; Start 09/27/16 at 09:00 Lisinopril (Zestril) 20 mg BID PO Last administered on 09/30/16 07:52; Admin Dose 20 MG; Start 09/27/16 at 09:00 Metoprolol Tartrate (Lopressor) 50 mg TID PO Last administered on 09/30/16 07: 52; Admin Dose 50 MG; Start 09/27/16 at 09:00 Pantoprazole (Protonix Tab) 40 mg DAILY PO Last administered on 09/30/16 07:52 ; Admin Dose 40 MG; Start 09/27/16 at 09:00 Multivit/Ca Carb/ B Cmplx/FA/Prenat (Rosalba-Caitlin) 1 tab DAILY PO Last administered on 09/30/16 07:51; Admin Dose 1 TAB; Start 09/27/16 at 09:00 Hydralazine HCl (Apresoline) 20 mg Q6H PRN IV sbp>170mmhg; Start 09/27/16 at 08 :30 Labetalol HCl (Labetalol) 20 mg Q4H PRN IV sbp>160mmhg; Start 09/27/16 at 08:30 Docusate Sodium (Colace) 100 mg BID PO Last administered on 09/30/16 07:52; Admin Dose 100 MG; Start 09/27/16 at 09:00 Tamsulosin HCl (Flomax) 0.4 mg BID PO Last administered on 09/30/16 07:54; Admin Dose 0.4 MG; Start 09/27/16 at 21:00 Diphenhydramine HCl (Benadryl) 25 mg Q6H PRN PO ITCHING Last administered on 16:56; Admin Dose 25 MG; Start 09/29/16 at 17:00 Heparin Sodium (Porcine) (Heparin (5000 Units/0.5 ml)) 5,000 unit BID SC ; Start 09/29/16 at 21:12; Status Future Hold Linezolid (Zyvox) 600 mg BID PO Last administered on 09/30/16t 11:53; Admin Dose 600 MG; Start 09/30/16 at 10:00 CON PERRIN Sep 30, 2016 12:21
--- NOTE | 2016-09-30 15:48 | CONS ---
Date/Time of Note Date/Time of Note DATE: 09/30/16 TIME: 15:47 Assessment/Plan Assessment/Plan Chief Complaint/Hosp Course SUBJECTIVE DATA: No acute changes. Patient is sleeping, looks comfortable. No fevers. Microbiology: Urine culture growing VRE INDWELLING: Right chest Perma-Cath. ANTIMICROBIALS: Zyvox OBJECTIVE DATA: GENERAL: Well-developed, fragile, middle-aged man, who is alert, in no distress. HEENT: Head atraumatic, normocephalic. Sclerae anicteric. Buccal mucosa pink. NECK: Supple. CHEST: Rise symmetrical. Breath sounds diminished at the bases. HEART: S1, S2. ABDOMEN: Soft, bowel sounds present. EXTREMITIES: Without cyanosis. ASSESSMENT: 1. Status post respiratory distress. 2. Pleural effusion, status post thoracentesis. 3. Mild VRE UTI with hematuria 4. End-stage renal disease. 5. Hypertension. 6. Right chest Perma-Cath. PLAN: Patient remains stable. Antibiotics were changed to Zyvox, pleural fluid cultures negative, continue present care DW staff Problems: Consultation Date/Type/Reason Admit Date/Time Sep 27, 2016 at 05:51 Initial Consult Date 09/27/16 Type of Consultation: ID Referring Provider: ANUM SYED Exam/Review of Systems Vital Signs Vitals Vital Signs Date Time Temp Pulse Resp B/P Pulse Ox O2 Delivery O2 Flow Rate FiO2 09/30/16 15:32 98.0 62 20 118/77 96 09/29/16 20:00 Nasal Cannula 2.0 Intake and Output 09/29/16 09/29/16 09/30/16 15:00 23:00 07:00 Intake Total 480 ml 400 ml Output Total 350 ml 300 ml Balance 130 ml 100 ml Results Result Diagram: 09/29/16 0511 09/29/16 0511 Medications Medications Current Medications Amiodarone HCl (Cordarone) 200 mg DAILY PO Last administered on 09/30/16 07:52 ; Admin Dose 200 MG; Start 09/27/16 at 09:00 Amlodipine Besylate (Norvasc) 10 mg DAILY PO Last administered on 09/30/16 07: 52; Admin Dose 10 MG; Start 09/27/16 at 09:00 Clonidine (Catapres) 0.2 mg Q8 PO Last administered on 09/30/16 14:23; Admin Dose 0.2 MG; Start 09/27/16 at 08:30 Hydralazine HCl (Apresoline) 100 mg TID PO Last administered on 09/30/16 07:51 ; Admin Dose 100 MG; Start 09/27/16 at 09:00 Lisinopril (Zestril) 20 mg BID PO Last administered on 09/30/16 07:52; Admin Dose 20 MG; Start 09/27/16 at 09:00 Metoprolol Tartrate (Lopressor) 50 mg TID PO Last administered on 09/30/16 07: 52; Admin Dose 50 MG; Start 09/27/16 at 09:00 Pantoprazole (Protonix Tab) 40 mg DAILY PO Last administered on 09/30/16 07:52 ; Admin Dose 40 MG; Start 09/27/16 at 09:00 Multivit/Ca Carb/ B Cmplx/FA/Prenat (Rosalba-Caitlin) 1 tab DAILY PO Last administered on 09/30/16 07:51; Admin Dose 1 TAB; Start 09/27/16 at 09:00 Hydralazine HCl (Apresoline) 20 mg Q6H PRN IV sbp>170mmhg; Start 09/27/16 at 08 :30 Labetalol HCl (Labetalol) 20 mg Q4H PRN IV sbp>160mmhg; Start 09/27/16 at 08:30 Docusate Sodium (Colace) 100 mg BID PO Last administered on 09/30/16 07:52; Admin Dose 100 MG; Start 09/27/16 at 09:00 Tamsulosin HCl (Flomax) 0.4 mg BID PO Last administered on 09/30/16 07:54; Admin Dose 0.4 MG; Start 09/27/16 at 21:00 Diphenhydramine HCl (Benadryl) 25 mg Q6H PRN PO ITCHING Last administered on 16:56; Admin Dose 25 MG; Start 09/29/16 at 17:00 Heparin Sodium (Porcine) (Heparin (5000 Units/0.5 ml)) 5,000 unit BID SC ; Start 09/29/16 at 21:12; Status Future Hold Linezolid (Zyvox) 600 mg BID PO Last administered on 8/25/17at 11:53; Admin Dose 600 MG; Start 09/30/16 at 10:00 ASHER NUGENT NP Sep 30, 2016 15:48
--- NOTE | 2016-09-30 16:51 | PN ---
Date/Time of Note Date/Time of Note DATE: 09/30/16 TIME: 16:48 Assessment/Plan VTE Prophylaxis VTE Prophylaxis Intervention: contraindicated, heparin, other Lines/Catheters IV Catheter Type (from Nrs): Saline Lock Urinary Cath still in place: Yes Reason Cath still needed: urinary retention Assessment/Plan Chief Complaint/Hosp Course 61 yo male with ESRD of unclear etiology, hypertension, and BPH who presents with pleural effusion and bladder outlet obstruction causing b/l hydronephrosis Pleural effusion likely from acute diastolic CHF exacerbation: - Uncomplicated appearance on US, s/p therapeutic/diagnostic thoracentesis today. Labs transudative - Continue HD per renal ESRD: - Unclear etiology of renal disease - HD per renal Hypertension: - Continue current management BPH leading to acute EWING and hydronephrosis, hematuria: - Dr Lanza was contacted. Does not feel urgent need to see patient. Says he will see patient prior to discharge and wants to be contacted then - Continue flomax to 0.4 BID - Start finasteride - Continue barraza for now - Will likely need prostate resection - Significant hematuria concerning for malignancy Complicated UTI 2/2 VRE - Zyvox per ID Discharge plan pending Problems: Subjective 24 Hr Interval Summary Free Text/Dictation Thoracentesis yesterday looks transudative Patient feeling great from respiratory perspective. Very happy to have had fluid removed Says he was told he needs to have his "prostate removed" Discussed his ESRD and chronic need for HD at length Exam/Review of Systems Vital Signs Vitals Vital Signs Date Time Temp Pulse Resp B/P Pulse Ox O2 Delivery O2 Flow Rate FiO2 09/30/16 16:12 62 09/30/16 15:32 98.0 20 118/77 96 09/29/16 20:00 Nasal Cannula 2.0 Intake and Output 09/29/16 09/29/16 09/30/16 14:59 22:59 06:59 Intake Total 480 ml 400 ml Output Total 350 ml 300 ml Balance 130 ml 100 ml Results Result Diagram: 09/29/16 0511 09/29/16 0511 Medications Medications Current Medications Amiodarone HCl (Cordarone) 200 mg DAILY PO Last administered on 09/30/16 07:52 ; Admin Dose 200 MG; Start 09/27/16 at 09:00 Amlodipine Besylate (Norvasc) 10 mg DAILY PO Last administered on 09/30/16 07: 52; Admin Dose 10 MG; Start 09/27/16 at 09:00 Clonidine (Catapres) 0.2 mg Q8 PO Last administered on 09/30/16 14:23; Admin Dose 0.2 MG; Start 09/27/16 at 08:30 Hydralazine HCl (Apresoline) 100 mg TID PO Last administered on 09/30/16 07:51 ; Admin Dose 100 MG; Start 09/27/16 at 09:00 Lisinopril (Zestril) 20 mg BID PO Last administered on 09/30/16 07:52; Admin Dose 20 MG; Start 09/27/16 at 09:00 Metoprolol Tartrate (Lopressor) 50 mg TID PO Last administered on 09/30/16 07: 52; Admin Dose 50 MG; Start 09/27/16 at 09:00 Pantoprazole (Protonix Tab) 40 mg DAILY PO Last administered on 09/30/16 07:52 ; Admin Dose 40 MG; Start 09/27/16 at 09:00 Multivit/Ca Carb/ B Cmplx/FA/Prenat (Rosalba-Caitlin) 1 tab DAILY PO Last administered on 09/30/16 07:51; Admin Dose 1 TAB; Start 09/27/16 at 09:00 Hydralazine HCl (Apresoline) 20 mg Q6H PRN IV sbp>170mmhg; Start 09/27/16 at 08 :30 Labetalol HCl (Labetalol) 20 mg Q4H PRN IV sbp>160mmhg; Start 09/27/16 at 08:30 Docusate Sodium (Colace) 100 mg BID PO Last administered on 09/30/16 07:52; Admin Dose 100 MG; Start 09/27/16 at 09:00 Tamsulosin HCl (Flomax) 0.4 mg BID PO Last administered on 09/30/16 07:54; Admin Dose 0.4 MG; Start 09/27/16 at 21:00 Diphenhydramine HCl (Benadryl) 25 mg Q6H PRN PO ITCHING Last administered on 16:56; Admin Dose 25 MG; Start 09/29/16 at 17:00 Heparin Sodium (Porcine) (Heparin (5000 Units/0.5 ml)) 5,000 unit BID SC ; Start 09/29/16 at 21:12; Status Future Hold Linezolid (Zyvox) 600 mg BID PO Last administered on 09/30/16t 11:53; Admin Dose 600 MG; Start 09/30/16 at 10:00 MAJOR GARNER MD Sep 30, 2016 16:50
--- NOTE | 2016-09-30 22:02 | CONS ---
Date/Time of Note Date/Time of Note DATE: 09/30/16 TIME: 21:59 Assessment/Plan Assessment/Plan Chief Complaint/Hosp Course Pt has additional problem of hematuria for which he'd need to be followed closely & avioid Heparin Problems: Additional Assessment/Plan Will get next HD Monday & then TTS Will dc Mckeon only when Urine clears. Consultation Date/Type/Reason Admit Date/Time Sep 27, 2016 at 05:51 Initial Consult Date 09/27/16 Type of Consultation: renal Referring Provider: ANUM SYED 24 HR Interval Summary Free Text/Dictation Feels better after HD today Exam/Review of Systems Vital Signs Vitals Vital Signs Date Time Temp Pulse Resp B/P Pulse Ox O2 Delivery O2 Flow Rate FiO2 09/30/16 21:36 63 135/82 09/30/16 19:08 97.6 15 97 09/29/16 20:00 Nasal Cannula 2.0 Intake and Output 09/29/16 09/29/16 09/30/16 15:00 23:00 07:00 Intake Total 480 ml 400 ml Output Total 350 ml 300 ml Balance 130 ml 100 ml Exam Constitutional: alert, oriented, well developed Psych: nl mood/affect, no complaints Head: atraumatic, normocephalic Eyes: EOMI, PERRL, nl conjunctiva, nl lids, nl sclera ENMT: nl external ears & nose, nl lips & teeth, nl nasal mucosa & septum Neck: non-tender, supple Respiratory: clear to auscultation, normal air movement, other (rt chest wall permacth in place) Cardiovascular: nl pulses, regular rate and rhythm Gastrointestinal: nl liver, spleen, non-tender, soft Genitourinary - Male: other (Mckeon cath draining lightly pink urine) Musculoskeletal: nl extremities to inspection, nl gait and stance Extremities: normal pulses Neurological: ORCHARD HAND II-XII intact, nl mental status, nl speech, nl strength Skin: nl turgor, other (pale), No rash or lesions Lymph: nl lymph nodes Results Result Diagram: 09/29/1651009/29/16 05 Medications Medications Current Medications Amiodarone HCl (Cordarone) 200 mg DAILY PO Last administered on 09/30/16t 07:52 ; Admin Dose 200 MG; Start 09/27/16 at 09:00 Amlodipine Besylate (Norvasc) 10 mg DAILY PO Last administered on 09/30/16 07: 52; Admin Dose 10 MG; Start 09/27/16 at 09:00 Clonidine (Catapres) 0.2 mg Q8 PO Last administered on 09/30/16 21:36; Admin Dose 0.2 MG; Start 09/27/16 at 08:30 Hydralazine HCl (Apresoline) 100 mg TID PO Last administered on 09/30/16 20:50 ; Admin Dose 100 MG; Start 09/27/16 at 09:00 Lisinopril (Zestril) 20 mg BID PO Last administered on 09/30/16 20:51; Admin Dose 20 MG; Start 09/27/16 at 09:00 Metoprolol Tartrate (Lopressor) 50 mg TID PO Last administered on 09/30/16 20: 50; Admin Dose 50 MG; Start 09/27/16 at 09:00 Pantoprazole (Protonix Tab) 40 mg DAILY PO Last administered on 09/30/16 07:52 ; Admin Dose 40 MG; Start 09/27/16 at 09:00 Multivit/Ca Carb/ B Cmplx/FA/Prenat (Rosalba-Caitlin) 1 tab DAILY PO Last administered on 09/30/16 07:51; Admin Dose 1 TAB; Start 09/27/16 at 09:00 Hydralazine HCl (Apresoline) 20 mg Q6H PRN IV sbp>170mmhg; Start 09/27/16 at 08 :30 Labetalol HCl (Labetalol) 20 mg Q4H PRN IV sbp>160mmhg; Start 09/27/16 at 08:30 Docusate Sodium (Colace) 100 mg BID PO Last administered on 09/30/16 20:50; Admin Dose 100 MG; Start 09/27/16 at 09:00 Tamsulosin HCl (Flomax) 0.4 mg BID PO Last administered on 09/30/16 20:50; Admin Dose 0.4 MG; Start 09/27/16 at 21:00 Diphenhydramine HCl (Benadryl) 25 mg Q6H PRN PO ITCHING Last administered on 16:56; Admin Dose 25 MG; Start 09/29/16 at 17:00 Heparin Sodium (Porcine) (Heparin (5000 Units/0.5 ml)) 5,000 unit BID SC ; Start 09/29/16 at 21:12; Status Future Hold Linezolid (Zyvox) 600 mg BID PO Last administered on 09/30/16t 20:49; Admin Dose 600 MG; Start 09/30/16 at 10:00 KISHOR MORRIS MD Sep 30, 2016 22:01
[2016-10-01] VITALS (10 sets, daily range): BP systolic 116–150; BP diastolic 66–88; PULSE 54–66; RESP 16–20
[2016-10-01] MEDS: MULTIVIT/CA CARB/B CMPLX/FA TAB PO SCH (08:05)
[2016-10-01] MEDS: AMLODIPINE 10 MG TAB PO SCH (08:06)
[2016-10-01] MEDS: PANTOPRAZOLE (EC) 40 MG TAB PO SCH (08:06)
[2016-10-01] MEDS: DOCUSATE SODIUM 100 MG CAP PO SCH ×2 (08:06→21:13)
[2016-10-01] MEDS: LISINOPRIL 20 MG TAB PO SCH ×2 (08:06→21:14)
[2016-10-01] MEDS: TAMSULOSIN (SR) 0.4 MG CAP PO SCH ×2 (08:06→21:13)
[2016-10-01] MEDS: ZYVOX 600 MG TAB PO SCH ×2 (08:06→21:13)
[2016-10-01] MEDS: METOPROLOL 50 MG TAB PO SCH ×3 (08:06→21:00)
[2016-10-01] MEDS: AMIODARONE 200 MG TAB PO SCH (08:06)
--- NOTE | 2016-10-01 11:18 | CONS ---
Date/Time of Note Date/Time of Note DATE: 10/01/16 TIME: : Assessment/Plan Assessment/Plan Chief Complaint/Hosp Course Acute on chronic diastolic heart failure: decompensated by exam on admission. EF ~50%. Now euvolemic Hematuria: per pt he has had a cystoscopy before ESRD on HD: TTS HTN: BP uncontrolled on multiple meds on admission. Volume overload also contributing. Now better -HD per nephrology -antibiotics per primary/ID teams -amlodipine 10mg -clonidine 0.2mg TID -metoprolol 50mg TID -hydralazine 100mg TID -lisinopril 20mg BID Problems: Consultation Date/Type/Reason Admit Date/Time Sep 27, 2016 at 05:51 Initial Consult Date 09/27/16 Type of Consultation: Cardiology Referring Provider: ANUM SYED 24 HR Interval Summary Free Text/Dictation Hematuria improving. Otherwise doing well. No complaints Exam/Review of Systems Vital Signs Vitals Vital Signs Date Time Temp Pulse Resp B/P Pulse Ox O2 Delivery O2 Flow Rate FiO2 10/01/16 11:12 98.0 74 16 128/77 97 10/01/16 04:00 Room Air 09/29/16 20:00 2.0 Intake and Output 09/30/16 09/30/16 10/01/16 15:00 23:00 07:00 Intake Total 500 ml 720 ml 400 ml Output Total 2500 ml 2150 ml 100 ml Balance -2000 ml -1430 ml 300 ml Exam Constitutional: alert, oriented Psych: nl mood/affect, no complaints Head: atraumatic, normocephalic Neck: supple, No jvd Respiratory: clear to auscultation, No crackles/rales, No diminished breath sounds Cardiovascular: regular rate and rhythm, systolic murmur (2/6 ERICKSON), No edema Gastrointestinal: non-tender, soft Neurological: nl mental status, nl speech Results Result Diagram: 09/29/1651009/29/16510 Medications Medications Current Medications Amiodarone HCl (Cordarone) 200 mg DAILY PO Last administered on 10/01/16 08:06 ; Admin Dose 200 MG; Start 09/27/16 at 09:00 Amlodipine Besylate (Norvasc) 10 mg DAILY PO Last administered on 10/01/16 08: 06; Admin Dose 10 MG; Start 09/27/16 at 09:00 Clonidine (Catapres) 0.2 mg Q8 PO Last administered on 09/30/16 21:36; Admin Dose 0.2 MG; Start 09/27/16 at 08:30 Hydralazine HCl (Apresoline) 100 mg TID PO Last administered on 10/01/16 08:06 ; Admin Dose 100 MG; Start 09/27/16 at 09:00 Lisinopril (Zestril) 20 mg BID PO Last administered on 10/01/16 08:06; Admin Dose 20 MG; Start 09/27/16 at 09:00 Metoprolol Tartrate (Lopressor) 50 mg TID PO Last administered on 10/01/16 08: 06; Admin Dose 50 MG; Start 09/27/16 at 09:00 Pantoprazole (Protonix Tab) 40 mg DAILY PO Last administered on 10/01/16 08:06 ; Admin Dose 40 MG; Start 09/27/16 at 09:00 Multivit/Ca Carb/ B Cmplx/FA/Prenat (Rosalba-Caitlin) 1 tab DAILY PO Last administered on 10/01/16 08:05; Admin Dose 1 TAB; Start 09/27/16 at 09:00 Hydralazine HCl (Apresoline) 20 mg Q6H PRN IV sbp>170mmhg; Start 09/27/16 at 08 :30 Labetalol HCl (Labetalol) 20 mg Q4H PRN IV sbp>160mmhg; Start 09/27/16 at 08:30 Docusate Sodium (Colace) 100 mg BID PO Last administered on 10/01/16 08:06; Admin Dose 100 MG; Start 09/27/16 at 09:00 Tamsulosin HCl (Flomax) 0.4 mg BID PO Last administered on 10/01/16 08:06; Admin Dose 0.4 MG; Start 09/27/16 at 21:00 Diphenhydramine HCl (Benadryl) 25 mg Q6H PRN PO ITCHING Last administered on 16:56; Admin Dose 25 MG; Start 09/29/16 at 17:00 Heparin Sodium (Porcine) (Heparin (5000 Units/0.5 ml)) 5,000 unit BID SC ; Start 09/29/16 at 21:12; Status Future Hold Linezolid (Zyvox) 600 mg BID PO Last administered on 10/01/16 08:06; Admin Dose 600 MG; Start 09/30/16 at 10:00 CON PERRIN Oct 01, 2016 11:18
--- NOTE | 2016-10-01 11:59 | CONS ---
Date/Time of Note Date/Time of Note DATE: 10/01/16 TIME: 11:59 Assessment/Plan Assessment/Plan Chief Complaint/Hosp Course ID PROGRESS NOTE CURRENT ABX=> Zyvox #2 s/p Azith, Ceftriaxone, Cefepime 24H INTERVAL SUMMARY * A/A/responsive, sitting up in chair eating lunch without supplemental O2, tells me breathing in better, "Mejor" - no complaints offered * Still has FC w/mild hematuria, no fevers, WBC normal, VSS * Microbiology: Urine culture growing VRE PHYSICAL EXAMINATION: GENERAL: VSS, NAD, WD, Awake, alert HEENT: Unremarkable NECK: Supple CHEST: Rise symmetrical bilaterally, without dyspnea on observation CV: RRR ABDOMEN: Soft : FC w/pink tinged urine output EXTREMITIES: Warm, moves extremities, no edema ID ASSESSMENT: 61 yo M admit with: 1. Status post hypoxic respiratory distress due to fluid overload => RESOLVED 2. Pleural effusion, status post thoracentesis on 09/29/16 => RESOLVED * Micro 09/29 (-) 3. Possible HCAP (HD Unit) on admission => RESOLVING * 09/26 CXR: Large right pleural effusion with vascular congestion. Superimposed right lower lobe pneumonia cannot be excluded. * s/p Azith, Vanco IV, Ceftriaxone, Cefepime 4. BPH w/probable urinary retention -- on Flomax 5. VRE UTI = low colony count with hematuria 6. End-stage renal disease w/ HD via right CXT-PermCath 7. Hypertension. 8. Cardiac arrhythmia -> On Amiodarone (-) MRSA Nares INVASIVES: PIV, R-PermCath, ABX ALLERGY: KNDA CURRENT ABX=> Zyvox #2 s/p Azith, Vanco IV, Ceftriaxone, Cefepime ID PLAN 1. Continue Zyvox for concern VRE UTI w/hematuria 2. Patient still has FC intact -- defer to primary if/when can be DC'd . Problems: Consultation Date/Type/Reason Admit Date/Time Sep 27, 2016 at 05:51 Initial Consult Date 09/27/16 Type of Consultation: id Referring Provider: ANUM SYED Exam/Review of Systems Vital Signs Vitals Vital Signs Date Time Temp Pulse Resp B/P Pulse Ox O2 Delivery O2 Flow Rate FiO2 10/01/16 11:12 98.0 74 16 128/77 97 10/01/16 04:00 Room Air 09/29/16 20:00 2.0 Intake and Output 09/30/16 09/30/16 10/01/16 15:00 23:00 07:00 Intake Total 500 ml 720 ml 400 ml Output Total 2500 ml 2150 ml 100 ml Balance -2000 ml -1430 ml 300 ml Results Result Diagram: 09/29/16 0511 09/29/16 0511 Medications Medications Current Medications Amiodarone HCl (Cordarone) 200 mg DAILY PO Last administered on 10/01/16 08:06 ; Admin Dose 200 MG; Start 09/27/16 at 09:00 Amlodipine Besylate (Norvasc) 10 mg DAILY PO Last administered on 10/01/16 08: 06; Admin Dose 10 MG; Start 09/27/16 at 09:00 Clonidine (Catapres) 0.2 mg Q8 PO Last administered on 09/30/16 21:36; Admin Dose 0.2 MG; Start 09/27/16 at 08:30 Hydralazine HCl (Apresoline) 100 mg TID PO Last administered on 10/01/16 08:06 ; Admin Dose 100 MG; Start 09/27/16 at 09:00 Lisinopril (Zestril) 20 mg BID PO Last administered on 10/01/16 08:06; Admin Dose 20 MG; Start 09/27/16 at 09:00 Metoprolol Tartrate (Lopressor) 50 mg TID PO Last administered on 10/01/16 08: 06; Admin Dose 50 MG; Start 09/27/16 at 09:00 Pantoprazole (Protonix Tab) 40 mg DAILY PO Last administered on 10/01/16 08:06 ; Admin Dose 40 MG; Start 09/27/16 at 09:00 Multivit/Ca Carb/ B Cmplx/FA/Prenat (Rosalba-Caitlin) 1 tab DAILY PO Last administered on 10/01/16 08:05; Admin Dose 1 TAB; Start 09/27/16 at 09:00 Hydralazine HCl (Apresoline) 20 mg Q6H PRN IV sbp>170mmhg; Start 09/27/16 at 08 :30 Labetalol HCl (Labetalol) 20 mg Q4H PRN IV sbp>160mmhg; Start 09/27/16 at 08:30 Docusate Sodium (Colace) 100 mg BID PO Last administered on 10/01/16 08:06; Admin Dose 100 MG; Start 09/27/16 at 09:00 Tamsulosin HCl (Flomax) 0.4 mg BID PO Last administered on 10/01/16 08:06; Admin Dose 0.4 MG; Start 09/27/16 at 21:00 Diphenhydramine HCl (Benadryl) 25 mg Q6H PRN PO ITCHING Last administered on 16:56; Admin Dose 25 MG; Start 09/29/16 at 17:00 Heparin Sodium (Porcine) (Heparin (5000 Units/0.5 ml)) 5,000 unit BID SC ; Start 09/29/16 at 21:12; Status Future Hold Linezolid (Zyvox) 600 mg BID PO Last administered on 10/01/16 08:06; Admin Dose 600 MG; Start 09/30/16 at 10:00 MERCEDES VAN NP Oct 01, 2016 11:59
--- NOTE | 2016-10-01 12:50 | PN ---
Date/Time of Note Date/Time of Note DATE: 10/01/16 TIME: 12:48 Assessment/Plan VTE Prophylaxis VTE Prophylaxis Intervention: contraindicated Lines/Catheters IV Catheter Type (from Nrs): Peripheral IV Urinary Cath still in place: Yes Reason Cath still needed: urinary retention Assessment/Plan Chief Complaint/Hosp Course 61 yo male with ESRD of unclear etiology, hypertension, and BPH who presents with pleural effusion and bladder outlet obstruction causing b/l hydronephrosis Pleural effusion likely from acute diastolic CHF exacerbation: - s/p therapeutic/diagnostic thoracentesis. Labs transudative - Continue HD per renal ESRD: - Unclear etiology of renal disease - HD per renal Hypertension: - Continue current management BPH leading to acute EWING and hydronephrosis, hematuria: - Dr Lanza was contacted. Does not feel urgent need to see patient. Says he will see patient prior to discharge and wants to be contacted then - Continue flomax to 0.4 BID - Start finasteride - Continue barraza for now - Will likely need prostate resection - Significant hematuria concerning for malignancy Complicated UTI 2/2 VRE - Zyvox per ID Discharge plan pending Problems: Subjective 24 Hr Interval Summary Free Text/Dictation No change to clinical status Breathing comfortably Barraza in place Exam/Review of Systems Vital Signs Vitals Vital Signs Date Time Temp Pulse Resp B/P Pulse Ox O2 Delivery O2 Flow Rate FiO2 10/01/16 12:04 66 10/01/16 11:12 98.0 16 128/77 97 10/01/16 04:00 Room Air 09/29/16 20:00 2.0 Intake and Output 09/30/16 09/30/16 10/01/16 15:00 23:00 07:00 Intake Total 500 ml 720 ml 400 ml Output Total 2500 ml 2150 ml 100 ml Balance -2000 ml -1430 ml 300 ml Exam Constitutional: No alert, No distress, No frail, No non-verbal, No obese, No oriented, No other, No well developed Psych: No anxiety, No confusion, No depression, No nl mood/affect, No no complaints, No other, No suicidal Respiratory: No clear to auscultation, No congested cough, No crackles/rales, No diminished breath sounds, No intercostal retraction, No labored breathing, No normal air movement, No other, No respirations, No tactile fremitus, No wheezing Cardiovascular: No S3, No S4, No bruits, No diastolic murmur, No edema, No gallop, No irregular rhythm, No jugular venous distention (JVD), No murmurs/ extra sounds, No nl pulses, No other, No regular rate and rhythm, No rub, No systolic murmur Genitourinary - Male: other (Barraza draining sanguinous urine) Results Result Diagram: 09/29/1651009/29/16510 Medications Medications Current Medications Amiodarone HCl (Cordarone) 200 mg DAILY PO Last administered on 10/01/16 08:06 ; Admin Dose 200 MG; Start 09/27/16 at 09:00 Amlodipine Besylate (Norvasc) 10 mg DAILY PO Last administered on 10/01/16 08: 06; Admin Dose 10 MG; Start 09/27/16 at 09:00 Clonidine (Catapres) 0.2 mg Q8 PO Last administered on 10/01/16 12:45; Admin Dose 0.2 MG; Start 09/27/16 at 08:30 Hydralazine HCl (Apresoline) 100 mg TID PO Last administered on 10/01/16 12:45 ; Admin Dose 100 MG; Start 09/27/16 at 09:00 Lisinopril (Zestril) 20 mg BID PO Last administered on 10/01/16 08:06; Admin Dose 20 MG; Start 09/27/16 at 09:00 Metoprolol Tartrate (Lopressor) 50 mg TID PO Last administered on 10/01/16 12: 45; Admin Dose 50 MG; Start 09/27/16 at 09:00 Pantoprazole (Protonix Tab) 40 mg DAILY PO Last administered on 10/01/16 08:06 ; Admin Dose 40 MG; Start 09/27/16 at 09:00 Multivit/Ca Carb/ B Cmplx/FA/Prenat (Rosalba-Caitlin) 1 tab DAILY PO Last administered on 10/01/16 08:05; Admin Dose 1 TAB; Start 09/27/16 at 09:00 Hydralazine HCl (Apresoline) 20 mg Q6H PRN IV sbp>170mmhg; Start 09/27/16 at 08 :30 Labetalol HCl (Labetalol) 20 mg Q4H PRN IV sbp>160mmhg; Start 09/27/16 at 08:30 Docusate Sodium (Colace) 100 mg BID PO Last administered on 10/01/16 08:06; Admin Dose 100 MG; Start 09/27/16 at 09:00 Tamsulosin HCl (Flomax) 0.4 mg BID PO Last administered on 10/01/16 08:06; Admin Dose 0.4 MG; Start 09/27/16 at 21:00 Diphenhydramine HCl (Benadryl) 25 mg Q6H PRN PO ITCHING Last administered on 16:56; Admin Dose 25 MG; Start 09/29/16 at 17:00 Heparin Sodium (Porcine) (Heparin (5000 Units/0.5 ml)) 5,000 unit BID SC ; Start 09/29/16 at 21:12; Status Future Hold Linezolid (Zyvox) 600 mg BID PO Last administered on 10/01/16 08:06; Admin Dose 600 MG; Start 09/30/16 at 10:00 MAJOR GARNER MD Oct 01, 2016 12:49
--- NOTE | 2016-10-01 14:45 | CONS ---
Date/Time of Note Date/Time of Note DATE: 10/01/16 TIME: 14:41 Assessment/Plan Assessment/Plan Chief Complaint/Hosp Course Pt has additional problem of hematuria for which he'd need to be followed closely & avioid Heparin Problems: (1) Hematuria Comment: may benefit from bladder irrigation. (2) Hypertension Status: Acute Comment: under control Qualifiers: Hypertension type: essential hypertension Qualified Code: I10 - Essential hypertension (3) Pleural effusion Status: Acute Comment: s/p thoracentasis (4) ESRD (end stage renal disease) on dialysis Comment: HD in AM then TTS Consultation Date/Type/Reason Admit Date/Time Sep 27, 2016 at 05:51 Initial Consult Date 09/27/16 Type of Consultation: renal Referring Provider: ANUM SYED 24 HR Interval Summary Free Text/Dictation c/o feeling weak Exam/Review of Systems Vital Signs Vitals Vital Signs Date Time Temp Pulse Resp B/P Pulse Ox O2 Delivery O2 Flow Rate FiO2 10/01/16 12:04 66 10/01/16 11:12 98.0 16 128/77 97 10/01/16 04:00 Room Air 09/29/16 20:00 2.0 Intake and Output 09/30/16 09/30/16 10/01/16 15:00 23:00 07:00 Intake Total 500 ml 720 ml 400 ml Output Total 2500 ml 2150 ml 100 ml Balance -2000 ml -1430 ml 300 ml Exam Constitutional: alert, oriented, well developed Psych: nl mood/affect, no complaints Head: atraumatic, normocephalic Eyes: EOMI, PERRL, nl conjunctiva, nl lids, nl sclera ENMT: nl external ears & nose, nl lips & teeth, nl nasal mucosa & septum Neck: non-tender, supple Respiratory: clear to auscultation, normal air movement, other (rt chest wall permacath) Cardiovascular: nl pulses, regular rate and rhythm Gastrointestinal: nl liver, spleen, non-tender, soft Genitourinary - Male: other (barraza) Musculoskeletal: nl extremities to inspection, nl gait and stance Extremities: normal pulses Neurological: CAFETERIA SERVER II-XII intact, nl mental status, nl speech, nl strength Skin: nl turgor, No rash or lesions Lymph: nl lymph nodes Results Result Diagram: 09/29/16 0511 09/29/16 05 Medications Medications Current Medications Amiodarone HCl (Cordarone) 200 mg DAILY PO Last administered on 10/01/16 08:06 ; Admin Dose 200 MG; Start 09/27/16 at 09:00 Amlodipine Besylate (Norvasc) 10 mg DAILY PO Last administered on 10/01/16 08: 06; Admin Dose 10 MG; Start 09/27/16 at 09:00 Clonidine (Catapres) 0.2 mg Q8 PO Last administered on 10/01/16 12:45; Admin Dose 0.2 MG; Start 09/27/16 at 08:30 Hydralazine HCl (Apresoline) 100 mg TID PO Last administered on 10/01/16 12:45 ; Admin Dose 100 MG; Start 09/27/16 at 09:00 Lisinopril (Zestril) 20 mg BID PO Last administered on 10/01/16 08:06; Admin Dose 20 MG; Start 09/27/16 at 09:00 Metoprolol Tartrate (Lopressor) 50 mg TID PO Last administered on 10/01/16 12: 45; Admin Dose 50 MG; Start 09/27/16 at 09:00 Pantoprazole (Protonix Tab) 40 mg DAILY PO Last administered on 10/01/16 08:06 ; Admin Dose 40 MG; Start 09/27/16 at 09:00 Multivit/Ca Carb/ B Cmplx/FA/Prenat (Rosalba-Caitlin) 1 tab DAILY PO Last administered on 10/01/16 08:05; Admin Dose 1 TAB; Start 09/27/16 at 09:00 Hydralazine HCl (Apresoline) 20 mg Q6H PRN IV sbp>170mmhg; Start 09/27/16 at 08 :30 Labetalol HCl (Labetalol) 20 mg Q4H PRN IV sbp>160mmhg; Start 09/27/16 at 08:30 Docusate Sodium (Colace) 100 mg BID PO Last administered on 10/01/16 08:06; Admin Dose 100 MG; Start 09/27/16 at 09:00 Tamsulosin HCl (Flomax) 0.4 mg BID PO Last administered on 10/01/16 08:06; Admin Dose 0.4 MG; Start 09/27/16 at 21:00 Diphenhydramine HCl (Benadryl) 25 mg Q6H PRN PO ITCHING Last administered on 16:56; Admin Dose 25 MG; Start 09/29/16 at 17:00 Heparin Sodium (Porcine) (Heparin (5000 Units/0.5 ml)) 5,000 unit BID SC ; Start 09/29/16 at 21:12; Status Future Hold Linezolid (Zyvox) 600 mg BID PO Last administered on 10/01/16 08:06; Admin Dose 600 MG; Start 09/30/16 at 10:00 KISHOR MORRIS MD Oct 01, 2016 14:45
[2016-10-02] VITALS (21 sets, daily range): BP systolic 115–143; BP diastolic 59–81; PULSE 60–79; RESP 17–20
--- NOTE | 2016-10-02 10:53 | CONS ---
Date/Time of Note Date/Time of Note DATE: 10/02/16 TIME: 10:51 Assessment/Plan Assessment/Plan Chief Complaint/Hosp Course Pt has additional problem of hematuria for which he'd need to be followed closely & avioid Heparin Problems: Additional Assessment/Plan May fabienne Mckeon HD in AM Rpt CBC in Am add Epo for Anemia Consultation Date/Type/Reason Admit Date/Time Sep 27, 2016 at 05:51 Initial Consult Date 09/27/16 Type of Consultation: renal Referring Provider: ANUM SYED 24 HR Interval Summary Free Text/Dictation Pt is resting comfortably in bed Exam/Review of Systems Vital Signs Vitals Vital Signs Date Time Temp Pulse Resp B/P Pulse Ox O2 Delivery O2 Flow Rate FiO2 10/02/16 09:30 66 18 10/02/16 08:08 97.6 125/80 97 10/01/16 04:00 Room Air 09/29/16 20:00 2.0 Intake and Output 10/01/16 10/01/16 10/02/16 15:00 23:00 07:00 Intake Total 800 ml 500 ml Output Total 150 ml 250 ml Balance 650 ml 250 ml Exam Constitutional: alert, oriented, well developed Psych: nl mood/affect, no complaints Head: atraumatic, normocephalic Eyes: EOMI, PERRL, nl conjunctiva, nl lids, nl sclera ENMT: nl external ears & nose, nl lips & teeth, nl nasal mucosa & septum Neck: non-tender, supple Respiratory: other (cheat wall rt side permacath in place) Cardiovascular: nl pulses, regular rate and rhythm Gastrointestinal: nl liver, spleen, non-tender, soft Musculoskeletal: nl extremities to inspection, nl gait and stance Extremities: normal pulses Neurological: CHOIR LEADER II-XII intact, nl mental status, nl speech, nl strength Skin: nl turgor, other (pale), No rash or lesions Lymph: nl lymph nodes Results Result Diagram: 09/29/16 0511 09/29/16 0511 Results 24 hrs Laboratory Tests Test 10/02/16 05:50 Prostate Specific Antigen 2.1 Medications Medications Current Medications Amiodarone HCl (Cordarone) 200 mg DAILY PO Last administered on 10/01/16t 08:06 ; Admin Dose 200 MG; Start 09/27/16 at 09:00 Amlodipine Besylate (Norvasc) 10 mg DAILY PO Last administered on 10/01/16 08: 06; Admin Dose 10 MG; Start 09/27/16 at 09:00 Clonidine (Catapres) 0.2 mg Q8 PO Last administered on 10/02/16 05:54; Admin Dose 0.2 MG; Start 09/27/16 at 08:30 Hydralazine HCl (Apresoline) 100 mg TID PO Last administered on 10/01/16 21:14 ; Admin Dose 100 MG; Start 09/27/16 at 09:00 Lisinopril (Zestril) 20 mg BID PO Last administered on 10/01/16 21:14; Admin Dose 20 MG; Start 09/27/16 at 09:00 Metoprolol Tartrate (Lopressor) 50 mg TID PO Last administered on 10/01/16 12: 45; Admin Dose 50 MG; Start 09/27/16 at 09:00 Pantoprazole (Protonix Tab) 40 mg DAILY PO Last administered on 10/01/16 08:06 ; Admin Dose 40 MG; Start 09/27/16 at 09:00 Multivit/Ca Carb/ B Cmplx/FA/Prenat (Rosalba-Caitlin) 1 tab DAILY PO Last administered on 10/01/16 08:05; Admin Dose 1 TAB; Start 09/27/16 at 09:00 Hydralazine HCl (Apresoline) 20 mg Q6H PRN IV sbp>170mmhg; Start 09/27/16 at 08 :30 Labetalol HCl (Labetalol) 20 mg Q4H PRN IV sbp>160mmhg; Start 09/27/16 at 08:30 Docusate Sodium (Colace) 100 mg BID PO Last administered on 10/01/16 21:13; Admin Dose 100 MG; Start 09/27/16 at 09:00 Tamsulosin HCl (Flomax) 0.4 mg BID PO Last administered on 10/01/16 21:13; Admin Dose 0.4 MG; Start 09/27/16 at 21:00 Diphenhydramine HCl (Benadryl) 25 mg Q6H PRN PO ITCHING Last administered on 16:56; Admin Dose 25 MG; Start 09/29/16 at 17:00 Heparin Sodium (Porcine) (Heparin (5000 Units/0.5 ml)) 5,000 unit BID SC ; Start 09/29/16 at 21:12; Status Future Hold Linezolid (Zyvox) 600 mg BID PO Last administered on 10/01/16t 21:13; Admin Dose 600 MG; Start 09/30/16 at 10:00 KISHOR MORRIS MD Oct 02, 2016 10:53
--- NOTE | 2016-10-02 11:11 | CONS ---
Date/Time of Note Date/Time of Note DATE: 10/02/16 TIME: 11:10 Assessment/Plan Assessment/Plan Chief Complaint/Hosp Course Acute on chronic diastolic heart failure: decompensated by exam on admission. EF ~50%. Now euvolemic Hematuria: per pt he has had a cystoscopy before. Resolving ESRD on HD: TTS HTN: BP uncontrolled on multiple meds on admission. Volume overload also contributing. Now better -HD per nephrology -antibiotics per primary/ID teams -amlodipine 10mg -clonidine 0.2mg TID -metoprolol 50mg TID -hydralazine 100mg TID -lisinopril 20mg BID Problems: Consultation Date/Type/Reason Admit Date/Time Sep 27, 2016 at 05:51 Initial Consult Date 09/27/16 Type of Consultation: Cardiology Referring Provider: ANUM SYED 24 HR Interval Summary Free Text/Dictation No o/n events. Receiving HD. No complaints Exam/Review of Systems Vital Signs Vitals Vital Signs Date Time Temp Pulse Resp B/P Pulse Ox O2 Delivery O2 Flow Rate FiO2 10/02/16 09:30 66 18 10/02/16 08:08 97.6 125/80 97 10/01/16 04:00 Room Air 09/29/16 20:00 2.0 Intake and Output 10/01/16 10/01/16 10/02/16 15:00 23:00 07:00 Intake Total 800 ml 500 ml Output Total 150 ml 250 ml Balance 650 ml 250 ml Exam Constitutional: alert, oriented Psych: nl mood/affect, no complaints Head: atraumatic, normocephalic Neck: No jvd Respiratory: clear to auscultation, No crackles/rales Cardiovascular: regular rate and rhythm, systolic murmur (2/6 ERICKSON), No edema Gastrointestinal: non-tender, soft Neurological: nl mental status, nl speech Results Result Diagram: 09/29/1611 09/29/16 05 Results 24 hrs Laboratory Tests Test 10/02/16 05:50 Prostate Specific Antigen 2.1 Medications Medications Current Medications Amiodarone HCl (Cordarone) 200 mg DAILY PO Last administered on 10/01/16t 08:06 ; Admin Dose 200 MG; Start 09/27/16 at 09:00 Amlodipine Besylate (Norvasc) 10 mg DAILY PO Last administered on 10/01/16 08: 06; Admin Dose 10 MG; Start 09/27/16 at 09:00 Clonidine (Catapres) 0.2 mg Q8 PO Last administered on 10/02/16 05:54; Admin Dose 0.2 MG; Start 09/27/16 at 08:30 Hydralazine HCl (Apresoline) 100 mg TID PO Last administered on 10/01/16 21:14 ; Admin Dose 100 MG; Start 09/27/16 at 09:00 Lisinopril (Zestril) 20 mg BID PO Last administered on 10/01/16 21:14; Admin Dose 20 MG; Start 09/27/16 at 09:00 Metoprolol Tartrate (Lopressor) 50 mg TID PO Last administered on 10/01/16 12: 45; Admin Dose 50 MG; Start 09/27/16 at 09:00 Pantoprazole (Protonix Tab) 40 mg DAILY PO Last administered on 10/01/16 08:06 ; Admin Dose 40 MG; Start 09/27/16 at 09:00 Multivit/Ca Carb/ B Cmplx/FA/Prenat (Rosalba-Caitlin) 1 tab DAILY PO Last administered on 10/01/16 08:05; Admin Dose 1 TAB; Start 09/27/16 at 09:00 Hydralazine HCl (Apresoline) 20 mg Q6H PRN IV sbp>170mmhg; Start 09/27/16 at 08 :30 Labetalol HCl (Labetalol) 20 mg Q4H PRN IV sbp>160mmhg; Start 09/27/16 at 08:30 Docusate Sodium (Colace) 100 mg BID PO Last administered on 10/01/16 21:13; Admin Dose 100 MG; Start 09/27/16 at 09:00 Tamsulosin HCl (Flomax) 0.4 mg BID PO Last administered on 10/01/16 21:13; Admin Dose 0.4 MG; Start 09/27/16 at 21:00 Diphenhydramine HCl (Benadryl) 25 mg Q6H PRN PO ITCHING Last administered on 16:56; Admin Dose 25 MG; Start 09/29/16 at 17:00 Heparin Sodium (Porcine) (Heparin (5000 Units/0.5 ml)) 5,000 unit BID SC ; Start 09/29/16 at 21:12; Status Future Hold Linezolid (Zyvox) 600 mg BID PO Last administered on 10/01/16t 21:13; Admin Dose 600 MG; Start 09/30/16 at 10:00 Epoetin Ottoniel (Epogen (Esrd)) 4,000 units MoWeFr@17 SC ; Start 10/03/16 at 17:00 CON PERRIN Oct 02, 2016 11:10
[2016-10-02] MEDS: DOCUSATE SODIUM 100 MG CAP PO SCH ×2 (11:29→21:08)
[2016-10-02] MEDS: TAMSULOSIN (SR) 0.4 MG CAP PO SCH ×2 (11:29→21:08)
[2016-10-02] MEDS: PANTOPRAZOLE (EC) 40 MG TAB PO SCH (11:29)
[2016-10-02] MEDS: ZYVOX 600 MG TAB PO SCH ×2 (11:29→21:08)
[2016-10-02] MEDS: MULTIVIT/CA CARB/B CMPLX/FA TAB PO SCH (11:29)
[2016-10-02] MEDS: METOPROLOL 50 MG TAB PO SCH ×3 (11:30→21:08)
[2016-10-02] MEDS: AMIODARONE 200 MG TAB PO SCH (11:30)
[2016-10-02] MEDS: LISINOPRIL 20 MG TAB PO SCH ×2 (11:31→21:09)
[2016-10-02] MEDS: AMLODIPINE 10 MG TAB PO SCH (11:31)
--- NOTE | 2016-10-02 12:45 | CONS ---
Date/Time of Note Date/Time of Note DATE: 10/02/16 TIME: 12:41 Assessment/Plan Assessment/Plan Chief Complaint/Hosp Course Assessment/Plan Chief Complaint/Hosp Course ID PROGRESS NOTE CURRENT ABX=> Zyvox #2 s/p Azith, Ceftriaxone, Cefepime 24H INTERVAL SUMMARY * Alert. Awake. No Acute Distress. * Microbiology: Urine culture growing VRE PHYSICAL EXAMINATION: GENERAL: VSS, NAD, WD, Awake, alert HEENT: Unremarkable NECK: Supple CHEST: Rise symmetrical bilaterally, without dyspnea on observation CV: RRR ABDOMEN: Soft : FC w/pink tinged urine output EXTREMITIES: Warm, moves extremities, no edema ID ASSESSMENT: 61 yo M admit with: 1. Status post hypoxic respiratory distress due to fluid overload => RESOLVED 2. Pleural effusion, status post thoracentesis on 09/29/16 => RESOLVED * Micro 09/29 (-) 3. Possible HCAP (HD Unit) on admission => RESOLVING * 09/26 CXR: Large right pleural effusion with vascular congestion. Superimposed right lower lobe pneumonia cannot be excluded. * s/p Azith, Vanco IV, Ceftriaxone, Cefepime 4. BPH w/probable urinary retention -- on Flomax 5. VRE UTI = low colony count with hematuria 6. End-stage renal disease w/ HD via right CXT-PermCath 7. Hypertension. 8. Cardiac arrhythmia -> On Amiodarone 9. Hematuria (-) MRSA Nares INVASIVES: PIV, R-PermCath, ABX ALLERGY: KNDA CURRENT ABX=> Zyvox #2 s/p Azith, Vanco IV, Ceftriaxone, Cefepime ID PLAN 1. Continue Zyvox for concern VRE UTI w/hematuria 2. Patient still has FC intact -- defer to primary if/when can be DC'd 3. Monitor Labs. Problems: Consultation Date/Type/Reason Admit Date/Time Sep 27, 2016 at 05:51 Initial Consult Date 09/27/16 Type of Consultation: id Referring Provider: ANUM SYED Exam/Review of Systems Vital Signs Vitals Vital Signs Date Time Temp Pulse Resp B/P Pulse Ox O2 Delivery O2 Flow Rate FiO2 10/02/16 11:12 98.1 78 18 141/75 95 10/01/16 04:00 Room Air 09/29/16 20:00 2.0 Intake and Output 10/01/16 10/01/16 10/02/16 15:00 23:00 07:00 Intake Total 800 ml 500 ml Output Total 150 ml 250 ml Balance 650 ml 250 ml Results Result Diagram: 09/29/16 0511 09/29/16 0511 Results 24 hrs Laboratory Tests Test 10/02/16 05:50 Prostate Specific Antigen 2.1 Medications Medications Current Medications Amiodarone HCl (Cordarone) 200 mg DAILY PO Last administered on 10/02/16 11:30 ; Admin Dose 200 MG; Start 09/27/16 at 09:00 Amlodipine Besylate (Norvasc) 10 mg DAILY PO Last administered on 10/02/16 11: 31; Admin Dose 10 MG; Start 09/27/16 at 09:00 Clonidine (Catapres) 0.2 mg Q8 PO Last administered on 10/02/16 05:54; Admin Dose 0.2 MG; Start 09/27/16 at 08:30 Hydralazine HCl (Apresoline) 100 mg TID PO Last administered on 10/02/16 11:30 ; Admin Dose 100 MG; Start 09/27/16 at 09:00 Lisinopril (Zestril) 20 mg BID PO Last administered on 10/02/16 11:31; Admin Dose 20 MG; Start 09/27/16 at 09:00 Metoprolol Tartrate (Lopressor) 50 mg TID PO Last administered on 10/02/16 11: 30; Admin Dose 50 MG; Start 09/27/16 at 09:00 Pantoprazole (Protonix Tab) 40 mg DAILY PO Last administered on 10/02/16 11:29 ; Admin Dose 40 MG; Start 09/27/16 at 09:00 Multivit/Ca Carb/ B Cmplx/FA/Prenat (Rosalba-Caitlin) 1 tab DAILY PO Last administered on 10/02/16 11:29; Admin Dose 1 TAB; Start 09/27/16 at 09:00 Hydralazine HCl (Apresoline) 20 mg Q6H PRN IV sbp>170mmhg; Start 09/27/16 at 08 :30 Labetalol HCl (Labetalol) 20 mg Q4H PRN IV sbp>160mmhg; Start 09/27/16 at 08:30 Docusate Sodium (Colace) 100 mg BID PO Last administered on 10/02/16 11:29; Admin Dose 100 MG; Start 09/27/16 at 09:00 Tamsulosin HCl (Flomax) 0.4 mg BID PO Last administered on 10/02/16 11:29; Admin Dose 0.4 MG; Start 09/27/16 at 21:00 Diphenhydramine HCl (Benadryl) 25 mg Q6H PRN PO ITCHING Last administered on 16:56; Admin Dose 25 MG; Start 09/29/16 at 17:00 Heparin Sodium (Porcine) (Heparin (5000 Units/0.5 ml)) 5,000 unit BID SC ; Start 09/29/16 at 21:12; Status Future Hold Linezolid (Zyvox) 600 mg BID PO Last administered on 10/02/16 11:29; Admin Dose 600 MG; Start 09/30/16 at 10:00 Epoetin Ottoniel (Epogen (Esrd)) 4,000 units MoWeFr@17 SC ; Start 10/03/16 at 17:00 HALIMA SANCHEZ NP Oct 02, 2016 12:45
--- NOTE | 2016-10-02 18:53 | PN ---
Date/Time of Note Date/Time of Note DATE: 10/02/16 TIME: 18:52 Assessment/Plan VTE Prophylaxis VTE Prophylaxis Intervention: contraindicated Lines/Catheters IV Catheter Type (from Nrs): Dialysis Catheter R Chest Urinary Cath still in place: Yes Reason Cath still needed: urinary retention Assessment/Plan Chief Complaint/Hosp Course 61 yo male with ESRD of unclear etiology, hypertension, and BPH who presents with pleural effusion and bladder outlet obstruction causing b/l hydronephrosis Pleural effusion likely from acute diastolic CHF exacerbation: - s/p therapeutic/diagnostic thoracentesis. Labs transudative - Continue HD per renal ESRD: - Unclear etiology of renal disease - HD per renal Hypertension: - Continue current management BPH leading to acute EWING and hydronephrosis, hematuria: - Dr Lanza was contacted. Does not feel urgent need to see patient. Says he will see patient prior to discharge and wants to be contacted then - Continue flomax to 0.4 BID - Start finasteride - Continue barraza until procedure preformed to prostate - Will likely need prostate resection - Significant hematuria concerning for malignancy Complicated UTI 2/2 VRE - Zyvox per ID Discharge plan pending Problems: Subjective 24 Hr Interval Summary Free Text/Dictation No change to clinical status Comfortable, breathing at baseline Exam/Review of Systems Vital Signs Vitals Vital Signs Date Time Temp Pulse Resp B/P Pulse Ox O2 Delivery O2 Flow Rate FiO2 10/02/16 16:16 79 10/02/16 15:27 98.2 17 125/77 95 10/01/16 04:00 Room Air 09/29/16 20:00 2.0 Intake and Output 10/01/16 10/01/16 10/02/16 15:00 23:00 07:00 Intake Total 800 ml 500 ml Output Total 150 ml 250 ml Balance 650 ml 250 ml Results Result Diagram: 09/29/16 0511 09/29/16 0511 Results 24 hrs Laboratory Tests Test 10/02/16 05:50 Prostate Specific Antigen 2.1 Medications Medications Current Medications Amiodarone HCl (Cordarone) 200 mg DAILY PO Last administered on 10/02/16 11:30 ; Admin Dose 200 MG; Start 09/27/16 at 09:00 Amlodipine Besylate (Norvasc) 10 mg DAILY PO Last administered on 10/02/16 11: 31; Admin Dose 10 MG; Start 09/27/16 at 09:00 Clonidine (Catapres) 0.2 mg Q8 PO Last administered on 10/02/16 13:40; Admin Dose 0.2 MG; Start 09/27/16 at 08:30 Hydralazine HCl (Apresoline) 100 mg TID PO Last administered on 10/02/16 13:40 ; Admin Dose 100 MG; Start 09/27/16 at 09:00 Lisinopril (Zestril) 20 mg BID PO Last administered on 10/02/16 11:31; Admin Dose 20 MG; Start 09/27/16 at 09:00 Metoprolol Tartrate (Lopressor) 50 mg TID PO Last administered on 10/02/16 11: 30; Admin Dose 50 MG; Start 09/27/16 at 09:00 Pantoprazole (Protonix Tab) 40 mg DAILY PO Last administered on 10/02/16 11:29 ; Admin Dose 40 MG; Start 09/27/16 at 09:00 Multivit/Ca Carb/ B Cmplx/FA/Prenat (Rosalba-Caitlin) 1 tab DAILY PO Last administered on 10/02/16 11:29; Admin Dose 1 TAB; Start 09/27/16 at 09:00 Hydralazine HCl (Apresoline) 20 mg Q6H PRN IV sbp>170mmhg; Start 09/27/16 at 08 :30 Labetalol HCl (Labetalol) 20 mg Q4H PRN IV sbp>160mmhg; Start 09/27/16 at 08:30 Docusate Sodium (Colace) 100 mg BID PO Last administered on 10/02/16 11:29; Admin Dose 100 MG; Start 09/27/16 at 09:00 Tamsulosin HCl (Flomax) 0.4 mg BID PO Last administered on 10/02/16 11:29; Admin Dose 0.4 MG; Start 09/27/16 at 21:00 Diphenhydramine HCl (Benadryl) 25 mg Q6H PRN PO ITCHING Last administered on 16:56; Admin Dose 25 MG; Start 09/29/16 at 17:00 Heparin Sodium (Porcine) (Heparin (5000 Units/0.5 ml)) 5,000 unit BID SC ; Start 09/29/16 at 21:12; Status Future Hold Linezolid (Zyvox) 600 mg BID PO Last administered on 10/02/16t 11:29; Admin Dose 600 MG; Start 09/30/16 at 10:00 Epoetin Ottoniel (Epogen (Esrd)) 4,000 units MoWeFr@17 SC ; Start 10/03/16 at 17:00 MAJOR GARNER MD Oct 02, 2016 18:53
[2016-10-03] VITALS (11 sets, daily range): BP systolic 126–143; BP diastolic 65–83; PULSE 58–72; RESP 17–20
[2016-10-03 07:02] LABS: ABNORMAL IP MESSAGE 1; BASOPHIL # 0.1 10^3/ul (0.0-0.1); BASOPHILS % 1.1 % (0.0-2.0); EOSINOPHILS # 0.4 10^3/ul (0.0-0.5); EOSINOPHILS % 5.4 % (0.0-7.0); HEMATOCRIT 30.7 % (42.0-52.0); HEMOGLOBIN 10.1 g/dl (14.0-18.0); LYMPHOCYTES # 2.2 10^3/ul (0.8-2.9); LYMPHOCYTES % 29.9 % (15.0-51.0); MEAN CORPUSCULAR HEMOGLOBIN 29.2 pg (29.0-33.0); MEAN CORPUSCULAR HGB CONC 32.9 g/dl (32.0-37.0); MEAN CORPUSCULAR VOLUME 88.7 fl (82.0-101.0); MONOCYTE # 0.5 10^3/ul (0.3-0.9); MONOCYTES % 7.4 % (0.0-11.0); NEUTROPHILS % 55.8 % (39.0-77.0); POSITIVE DIFF @See below; RED BLOOD COUNT 3.46 10^6/ul (4.70-6.10); RED CELL DISTRIBUTION WIDTH 15.2 % (11.5-14.5); WHITE BLOOD COUNT 7.3 10^3/ul (4.8-10.8)
[2016-10-03 07:13] LABS: PLATELET COUNT 92 10^3/UL (140-415)
[2016-10-03 07:25] LABS: ALBUMIN 2.6 g/dl (3.3-4.9); ALBUMIN/GLOBULIN RATIO 0.72; CALCIUM 8.1 mg/dl (8.4-10.2); CREATININE 5.57 mg/dl (0.61-1.24); POTASSIUM 4.1 mmol/L (3.5-5.1); TOTAL PROTEIN 6.2 g/dl (6.1-8.1)
--- NOTE | 2016-10-03 08:44 | CONS ---
Date/Time of Note Date/Time of Note DATE: 10/03/16 TIME: 08:43 Assessment/Plan Assessment/Plan Chief Complaint/Hosp Course Acute on chronic diastolic heart failure: decompensated by exam on admission. EF ~50%. Now euvolemic Hematuria: per pt he has had a cystoscopy before. Resolving ESRD on HD: TTS HTN: BP uncontrolled on multiple meds on admission. Volume overload also contributing. Now better -HD per nephrology -antibiotics per primary/ID teams -amlodipine 10mg -clonidine 0.2mg TID -metoprolol 50mg TID -hydralazine 100mg TID -lisinopril 20mg BID Problems: Consultation Date/Type/Reason Admit Date/Time Sep 27, 2016 at 05:51 Initial Consult Date 09/27/16 Type of Consultation: Cardiology Referring Provider: ANUM SYED 24 HR Interval Summary Free Text/Dictation No o/n events. Still with some hematuria in barraza Exam/Review of Systems Vital Signs Vitals Vital Signs Date Time Temp Pulse Resp B/P Pulse Ox O2 Delivery O2 Flow Rate FiO2 10/03/16 07:44 98.4 62 17 143/83 97 10/01/16 04:00 Room Air 09/29/16 20:00 2.0 Intake and Output 10/02/16 10/02/16 10/03/16 15:00 23:00 07:00 Intake Total 500 ml 850 ml Output Total 3500 ml 640 ml Balance -3000 ml 210 ml Exam Constitutional: alert, oriented Psych: nl mood/affect, no complaints Head: atraumatic, normocephalic Neck: No jvd Respiratory: clear to auscultation, No crackles/rales Cardiovascular: regular rate and rhythm, No edema Gastrointestinal: non-tender, soft Neurological: nl mental status, nl speech Results Result Diagram: 10/03/16 0555 10/03/16 0555 Results 24 hrs Laboratory Tests Test 10/03/16 05:55 White Blood Count 7.3 Red Blood Count 3.46 L Hemoglobin 10.1 L Hematocrit 30.7 L Mean Corpuscular Volume 88.7 Mean Corpuscular Hemoglobin 29.2 Mean Corpuscular Hemoglobin Concent 32.9 Red Cell Distribution Width 15.2 H Platelet Count 92 #L Mean Platelet Volume 11.0 H Neutrophils % 55.8 Lymphocytes % 29.9 Monocytes % 7.4 Eosinophils % 5.4 Basophils % 1.1 Nucleated Red Blood Cells % 0.0 Neutrophils # (Manual) 4.1 Lymphocytes # 2.2 Monocytes # 0.5 Eosinophils # 0.4 Basophils # 0.1 Nucleated Red Blood Cells # 0.0 Sodium Level 137 Potassium Level 4.1 Chloride Level 96 L Carbon Dioxide Level 26 Anion Gap 19 H Blood Urea Nitrogen 30 H Creatinine 5.57 H Glucose Level 85 Calcium Level 8.1 L Total Bilirubin 0.0 L Direct Bilirubin 0.00 Indirect Bilirubin 0.0 Aspartate Amino Transf (AST/SGOT) 16 Alanine Aminotransferase (ALT/SGPT) 21 Alkaline Phosphatase 74 Total Protein 6.2 Albumin 2.6 L Globulin 3.60 H Albumin/Globulin Ratio 0.72 Medications Medications Current Medications Amiodarone HCl (Cordarone) 200 mg DAILY PO Last administered on 10/02/16 11:30 ; Admin Dose 200 MG; Start 09/27/16 at 09:00 Amlodipine Besylate (Norvasc) 10 mg DAILY PO Last administered on 10/02/16 11: 31; Admin Dose 10 MG; Start 09/27/16 at 09:00 Clonidine (Catapres) 0.2 mg Q8 PO Last administered on 10/02/16 22:55; Admin Dose 0.2 MG; Start 09/27/16 at 08:30 Hydralazine HCl (Apresoline) 100 mg TID PO Last administered on 10/02/16 21:08 ; Admin Dose 100 MG; Start 09/27/16 at 09:00 Lisinopril (Zestril) 20 mg BID PO Last administered on 10/02/16 21:09; Admin Dose 20 MG; Start 09/27/16 at 09:00 Metoprolol Tartrate (Lopressor) 50 mg TID PO Last administered on 10/02/16 21: 08; Admin Dose 50 MG; Start 09/27/16 at 09:00 Pantoprazole (Protonix Tab) 40 mg DAILY PO Last administered on 10/02/16 11:29 ; Admin Dose 40 MG; Start 09/27/16 at 09:00 Multivit/Ca Carb/ B Cmplx/FA/Prenat (Rosalba-Caitlin) 1 tab DAILY PO Last administered on 10/02/16 11:29; Admin Dose 1 TAB; Start 09/27/16 at 09:00 Hydralazine HCl (Apresoline) 20 mg Q6H PRN IV sbp>170mmhg; Start 09/27/16 at 08 :30 Labetalol HCl (Labetalol) 20 mg Q4H PRN IV sbp>160mmhg; Start 09/27/16 at 08:30 Docusate Sodium (Colace) 100 mg BID PO Last administered on 10/02/16 21:08; Admin Dose 100 MG; Start 09/27/16 at 09:00 Tamsulosin HCl (Flomax) 0.4 mg BID PO Last administered on 10/02/16 21:08; Admin Dose 0.4 MG; Start 09/27/16 at 21:00 Diphenhydramine HCl (Benadryl) 25 mg Q6H PRN PO ITCHING Last administered on 16:56; Admin Dose 25 MG; Start 09/29/16 at 17:00 Heparin Sodium (Porcine) (Heparin (5000 Units/0.5 ml)) 5,000 unit BID SC ; Start 09/29/16 at 21:12; Status Future Hold Linezolid (Zyvox) 600 mg BID PO Last administered on 10/02/16 21:08; Admin Dose 600 MG; Start 09/30/16 at 10:00 Epoetin Ottoniel (Epogen (Esrd)) 4,000 units MoWeFr@17 SC ; Start 10/03/16 at 17:00 CON PERRIN Oct 03, 2016 08:44
[2016-10-03] MEDS: ZYVOX 600 MG TAB PO SCH ×2 (09:40→20:59)
[2016-10-03] MEDS: DOCUSATE SODIUM 100 MG CAP PO SCH ×2 (09:40→20:59)
[2016-10-03] MEDS: TAMSULOSIN (SR) 0.4 MG CAP PO SCH ×2 (09:41→20:59)
[2016-10-03] MEDS: AMLODIPINE 10 MG TAB PO SCH (09:42)
[2016-10-03] MEDS: PANTOPRAZOLE (EC) 40 MG TAB PO SCH (09:42)
[2016-10-03] MEDS: LISINOPRIL 20 MG TAB PO SCH ×2 (09:43→20:58)
[2016-10-03] MEDS: METOPROLOL 50 MG TAB PO SCH ×3 (09:44→21:00)
[2016-10-03] MEDS: MULTIVIT/CA CARB/B CMPLX/FA TAB PO SCH (09:44)
[2016-10-03] MEDS: AMIODARONE 200 MG TAB PO SCH (09:44)
[2016-10-03 10:03] LABS: BASOPHILS % (M) 1 % (0-2); EOSINOPHILS % (M) 2 % (0-7); GIANT THROMBO% (M) 1 % (0-0); MONOCYTES % (M) 6 % (0-11); PLATELET ESTIMATE DECREASED; POIKILOCYTOSIS 1+ (0-0)
--- NOTE | 2016-10-03 15:27 | CONS ---
Date/Time of Note Date/Time of Note DATE: 10/03/16 TIME: 15:27 Assessment/Plan Assessment/Plan Additional Assessment/Plan (1) Hematuria Comment: may benefit from bladder irrigation. (2) Hypertension Status: Acute Comment: under control Qualifiers: Hypertension type: essential hypertension Qualified Code: I10 - Essential hypertension (3) Pleural effusion Status: Acute Comment: s/p thoracentasis (4) ESRD (end stage renal disease) on dialysis Comment: HD TTS, ordered for tomorrow. Consultation Date/Type/Reason Admit Date/Time Sep 27, 2016 at 05:51 Initial Consult Date 09/27/16 Type of Consultation: Renal Referring Provider: ANUM SYED 24 HR Interval Summary Free Text/Dictation No new complaints, S/p HD yesterday Constitutional: No requiring O2 Exam/Review of Systems Vital Signs Vitals Vital Signs Date Time Temp Pulse Resp B/P Pulse Ox O2 Delivery O2 Flow Rate FiO2 10/03/16 12:01 60 10/03/16 11:43 97.9 18 127/79 98 10/01/16 04:00 Room Air 09/29/16 20:00 2.0 Intake and Output 10/02/16 10/02/16 10/03/16 15:00 23:00 07:00 Intake Total 500 ml 850 ml Output Total 3500 ml 640 ml Balance -3000 ml 210 ml Exam Constitutional: No distress ENMT: mucosa pink and moist Neck: No jvd Respiratory: No labored breathing Cardiovascular: No edema Gastrointestinal: soft Neurological: No confused, No lethargic Skin: No diaphoresis Results Result Diagram: 10/03/16 0555 10/03/16 0555 Results 24 hrs Laboratory Tests Test 10/03/16 05:55 White Blood Count 7.3 Red Blood Count 3.46 L Hemoglobin 10.1 L Hematocrit 30.7 L Mean Corpuscular Volume 88.7 Mean Corpuscular Hemoglobin 29.2 Mean Corpuscular Hemoglobin Concent 32.9 Red Cell Distribution Width 15.2 H Platelet Count 92 #L Mean Platelet Volume 11.0 H Neutrophils % 55.8 Segmented Neutrophils % (Manual) 62 Lymphocytes % 29.9 Lymphocytes % (Manual) 29 Monocytes % 7.4 Monocytes % (Manual) 6 Eosinophils % 5.4 Eosinophils % (Manual) 2 Basophils % 1.1 Basophils % (Manual) 1 Nucleated Red Blood Cells % 0.0 Neutrophils # (Manual) Absolute Lymphocytes (Manual) 2.1 Lymphocytes # 2.2 Monocytes # 0.5 Absolute Monocytes (Manual) 0.4 Eosinophils # 0.4 Basophils # 0.1 Basophils # (Manual) 0.0 Nucleated Red Blood Cells # 0.0 Thrombocytosis 1 H Platelet Estimate DECREASED Poikilocytosis 1+ Sodium Level 137 Potassium Level 4.1 Chloride Level 96 L Carbon Dioxide Level 26 Anion Gap 19 H Blood Urea Nitrogen 30 H Creatinine 5.57 H Glucose Level 85 Calcium Level 8.1 L Total Bilirubin 0.0 L Direct Bilirubin 0.00 Indirect Bilirubin 0.0 Aspartate Amino Transf (AST/SGOT) 16 Alanine Aminotransferase (ALT/SGPT) 21 Alkaline Phosphatase 74 Total Protein 6.2 Albumin 2.6 L Globulin 3.60 H Albumin/Globulin Ratio 0.72 Medications Medications Current Medications Amiodarone HCl (Cordarone) 200 mg DAILY PO Last administered on 10/03/16 09:44 ; Admin Dose 200 MG; Start 09/27/16 at 09:00 Amlodipine Besylate (Norvasc) 10 mg DAILY PO Last administered on 10/03/16 09: 42; Admin Dose 10 MG; Start 09/27/16 at 09:00 Clonidine (Catapres) 0.2 mg Q8 PO Last administered on 10/03/16 13:53; Admin Dose 0.2 MG; Start 09/27/16 at 08:30 Hydralazine HCl (Apresoline) 100 mg TID PO Last administered on 10/03/16 13:52 ; Admin Dose 100 MG; Start 09/27/16 at 09:00 Lisinopril (Zestril) 20 mg BID PO Last administered on 10/03/16 09:43; Admin Dose 20 MG; Start 09/27/16 at 09:00 Metoprolol Tartrate (Lopressor) 50 mg TID PO Last administered on 10/03/16 13: 52; Admin Dose 50 MG; Start 09/27/16 at 09:00 Pantoprazole (Protonix Tab) 40 mg DAILY PO Last administered on 10/03/16 09:42 ; Admin Dose 40 MG; Start 09/27/16 at 09:00 Multivit/Ca Carb/ B Cmplx/FA/Prenat (Rosalba-Caitlin) 1 tab DAILY PO Last administered on 10/03/16 09:44; Admin Dose 1 TAB; Start 09/27/16 at 09:00 Hydralazine HCl (Apresoline) 20 mg Q6H PRN IV sbp>170mmhg; Start 09/27/16 at 08 :30 Labetalol HCl (Labetalol) 20 mg Q4H PRN IV sbp>160mmhg; Start 09/27/16 at 08:30 Docusate Sodium (Colace) 100 mg BID PO Last administered on 10/03/16 09:40; Admin Dose 100 MG; Start 09/27/16 at 09:00 Tamsulosin HCl (Flomax) 0.4 mg BID PO Last administered on 10/03/16 09:41; Admin Dose 0.4 MG; Start 09/27/16 at 21:00 Diphenhydramine HCl (Benadryl) 25 mg Q6H PRN PO ITCHING Last administered on 16:56; Admin Dose 25 MG; Start 09/29/16 at 17:00 Heparin Sodium (Porcine) (Heparin (5000 Units/0.5 ml)) 5,000 unit BID SC ; Start 09/29/16 at 21:12; Status Future Hold Linezolid (Zyvox) 600 mg BID PO Last administered on 10/03/16 09:40; Admin Dose 600 MG; Start 09/30/16 at 10:00 Epoetin Ottoniel (Epogen (Esrd)) 4,000 units MoWeFr@17 SC ; Start 10/03/16 at 17:00 KEVIN BROWNE MD Oct 03, 2016 15:27
--- NOTE | 2016-10-03 16:00 | PN ---
Date/Time of Note Date/Time of Note DATE: 10/03/16 TIME: 15:58 Assessment/Plan VTE Prophylaxis VTE Prophylaxis Intervention: SCD's Lines/Catheters IV Catheter Type (from Nrs): perma cath Assessment/Plan Chief Complaint/Hosp Course 61 yo male with ESRD of unclear etiology, hypertension, and BPH who presents with pleural effusion and bladder outlet obstruction causing b/l hydronephrosis Pleural effusion likely from acute diastolic CHF exacerbation: - s/p therapeutic/diagnostic thoracentesis. Labs transudative - Continue HD per renal ESRD: - Unclear etiology of renal disease - HD per renal Hypertension: - Continue current management BPH leading to acute EWING and hydronephrosis, hematuria: - Dr Lanza was contacted. Does not feel urgent need to see patient. Says he will see patient prior to discharge and wants to be contacted then - Continue flomax to 0.4 BID and finasteride - Continue barraza until procedure preformed to prostate - Will likely need prostate resection - Significant hematuria concerning for malignancy Complicated UTI 2/2 VRE - Zyvox per ID PPX: SCDs Problems: Subjective 24 Hr Interval Summary Constitutional: no complaints Exam/Review of Systems Vital Signs Vitals Vital Signs Date Time Temp Pulse Resp B/P Pulse Ox O2 Delivery O2 Flow Rate FiO2 10/03/16 15:37 98.5 65 18 132/65 97 10/01/16 04:00 Room Air 09/29/16 20:00 2.0 Intake and Output 10/02/16 10/02/16 10/03/16 15:00 23:00 07:00 Intake Total 500 ml 850 ml Output Total 3500 ml 640 ml Balance -3000 ml 210 ml Exam Constitutional: alert, oriented Respiratory: clear to auscultation Cardiovascular: regular rate and rhythm Gastrointestinal: soft, No distended Musculoskeletal: nl extremities to inspection Results Result Diagram: 10/03/16 0555 10/03/16 0555 Results 24 hrs Laboratory Tests Test 10/03/16 05:55 White Blood Count 7.3 Red Blood Count 3.46 L Hemoglobin 10.1 L Hematocrit 30.7 L Mean Corpuscular Volume 88.7 Mean Corpuscular Hemoglobin 29.2 Mean Corpuscular Hemoglobin Concent 32.9 Red Cell Distribution Width 15.2 H Platelet Count 92 #L Mean Platelet Volume 11.0 H Neutrophils % 55.8 Segmented Neutrophils % (Manual) 62 Lymphocytes % 29.9 Lymphocytes % (Manual) 29 Monocytes % 7.4 Monocytes % (Manual) 6 Eosinophils % 5.4 Eosinophils % (Manual) 2 Basophils % 1.1 Basophils % (Manual) 1 Nucleated Red Blood Cells % 0.0 Neutrophils # (Manual) Absolute Lymphocytes (Manual) 2.1 Lymphocytes # 2.2 Monocytes # 0.5 Absolute Monocytes (Manual) 0.4 Eosinophils # 0.4 Basophils # 0.1 Basophils # (Manual) 0.0 Nucleated Red Blood Cells # 0.0 Thrombocytosis 1 H Platelet Estimate DECREASED Poikilocytosis 1+ Sodium Level 137 Potassium Level 4.1 Chloride Level 96 L Carbon Dioxide Level 26 Anion Gap 19 H Blood Urea Nitrogen 30 H Creatinine 5.57 H Glucose Level 85 Calcium Level 8.1 L Total Bilirubin 0.0 L Direct Bilirubin 0.00 Indirect Bilirubin 0.0 Aspartate Amino Transf (AST/SGOT) 16 Alanine Aminotransferase (ALT/SGPT) 21 Alkaline Phosphatase 74 Total Protein 6.2 Albumin 2.6 L Globulin 3.60 H Albumin/Globulin Ratio 0.72 Medications Medications Current Medications Amiodarone HCl (Cordarone) 200 mg DAILY PO Last administered on 10/03/16 09:44 ; Admin Dose 200 MG; Start 09/27/16 at 09:00 Amlodipine Besylate (Norvasc) 10 mg DAILY PO Last administered on 10/03/16 09: 42; Admin Dose 10 MG; Start 09/27/16 at 09:00 Clonidine (Catapres) 0.2 mg Q8 PO Last administered on 10/03/16 13:53; Admin Dose 0.2 MG; Start 09/27/16 at 08:30 Hydralazine HCl (Apresoline) 100 mg TID PO Last administered on 10/03/16 13:52 ; Admin Dose 100 MG; Start 09/27/16 at 09:00 Lisinopril (Zestril) 20 mg BID PO Last administered on 10/03/16 09:43; Admin Dose 20 MG; Start 09/27/16 at 09:00 Metoprolol Tartrate (Lopressor) 50 mg TID PO Last administered on 10/03/16 13: 52; Admin Dose 50 MG; Start 09/27/16 at 09:00 Pantoprazole (Protonix Tab) 40 mg DAILY PO Last administered on 10/03/16 09:42 ; Admin Dose 40 MG; Start 09/27/16 at 09:00 Multivit/Ca Carb/ B Cmplx/FA/Prenat (Rosalba-Caitlin) 1 tab DAILY PO Last administered on 10/03/16 09:44; Admin Dose 1 TAB; Start 09/27/16 at 09:00 Hydralazine HCl (Apresoline) 20 mg Q6H PRN IV sbp>170mmhg; Start 09/27/16 at 08 :30 Labetalol HCl (Labetalol) 20 mg Q4H PRN IV sbp>160mmhg; Start 09/27/16 at 08:30 Docusate Sodium (Colace) 100 mg BID PO Last administered on 10/03/16 09:40; Admin Dose 100 MG; Start 09/27/16 at 09:00 Tamsulosin HCl (Flomax) 0.4 mg BID PO Last administered on 10/03/16 09:41; Admin Dose 0.4 MG; Start 09/27/16 at 21:00 Diphenhydramine HCl (Benadryl) 25 mg Q6H PRN PO ITCHING Last administered on 16:56; Admin Dose 25 MG; Start 09/29/16 at 17:00 Heparin Sodium (Porcine) (Heparin (5000 Units/0.5 ml)) 5,000 unit BID SC ; Start 09/29/16 at 21:12; Status Future Hold Linezolid (Zyvox) 600 mg BID PO Last administered on 10/03/16 09:40; Admin Dose 600 MG; Start 09/30/16 at 10:00 Epoetin Ottoniel (Epogen (Esrd)) 4,000 units MoWeFr@17 SC ; Start 10/03/16 at 17:00 KENJI ROLDAN Oct 03, 2016 16:00
[2016-10-03] MEDS: EPOETIN 4000 UNITS/1 ML INJ (ESRD) SC SCH (17:39)
[2016-10-04] VITALS (20 sets, daily range): BP systolic 124–149; BP diastolic 62–89; PULSE 54–73; RESP 17–20
--- NOTE | 2016-10-04 02:47 | PN ---
DATE: 10/03/2016 SUBJECTIVE DATA: Patient is alert, feels better, looks comfortable. Hematuria almost resolved. LABORATORY AND DIAGNOSTIC DATA: WBC today is 7.3, no shift, no bounce. ANTIMICROBIALS: He is on Zyvox, day #4; indwelling Mckeon, PermCath. OBJECTIVE DATA: GENERAL: This is a well-developed, fragile, elderly man, who is awake, in no distress. HEENT: Head atraumatic, normocephalic. Sclerae anicteric. Buccal mucosa pink. NECK: Supple. RESPIRATORY: Chest rise symmetrical. Breath sounds clear. Diminished at bases. HEART: S1, S2. ABDOMEN: Soft, bowel sounds present. EXTREMITIES: Without cyanosis. ASSESSMENT: 1. Vancomycin-resistant enterococcus urinary tract infection with hematuria, resolving. 2. Pleural effusions, status post thoracentesis with pleural fluid cultures negative. 3. End-stage renal disease, hemodialysis dependent. 4. Hypertension. PLAN: Patient remains stable. Hematuria, resolving. We will continue him on current antibiotics for a couple of more days. Dictated By: Nilton Downs NP /deonte/karli /Document#: [id number]
--- NOTE | 2016-10-04 06:50 | CONS ---
Date/Time of Note Date/Time of Note DATE: 10/04/16 TIME: 06:49 Assessment/Plan Assessment/Plan Chief Complaint/Hosp Course Acute on chronic diastolic heart failure: decompensated by exam on admission. EF ~50%. Now euvolemic Hematuria: per pt he has had a cystoscopy before. Resolving ESRD on HD: TTS HTN: BP uncontrolled on multiple meds on admission. Volume overload also contributing. Now better -HD per nephrology -antibiotics per primary/ID teams -amlodipine 10mg -clonidine 0.2mg TID -metoprolol 50mg TID -hydralazine 100mg TID -lisinopril 20mg BID Problems: Consultation Date/Type/Reason Admit Date/Time Sep 27, 2016 at 05:51 Initial Consult Date 09/27/16 Type of Consultation: Cardiology Referring Provider: ANUM SYED 24 HR Interval Summary Free Text/Dictation No o/n events. Planned for HD today. Unclear plan for hematuria management Exam/Review of Systems Vital Signs Vitals Vital Signs Date Time Temp Pulse Resp B/P Pulse Ox O2 Delivery O2 Flow Rate FiO2 10/04/16 04:18 97.4 63 18 137/80 96 10/01/16 04:00 Room Air Intake and Output 10/03/16 10/03/16 10/04/16 15:00 23:00 07:00 Intake Total 500 ml 300 ml Output Total 450 ml 400 ml Balance 50 ml -100 ml Exam Constitutional: alert, oriented Psych: no complaints Head: atraumatic, normocephalic Neck: jvd Respiratory: clear to auscultation, No crackles/rales Cardiovascular: regular rate and rhythm, systolic murmur (2/6 ERICKSON), No edema Gastrointestinal: non-tender, soft Neurological: nl mental status, nl speech Results Result Diagram: 10/03/1655 10/03/1655 Medications Medications Current Medications Amiodarone HCl (Cordarone) 200 mg DAILY PO Last administered on 10/03/16 09:44 ; Admin Dose 200 MG; Start 09/27/16 at 09:00 Amlodipine Besylate (Norvasc) 10 mg DAILY PO Last administered on 10/03/16 09: 42; Admin Dose 10 MG; Start 09/27/16 at 09:00 Clonidine (Catapres) 0.2 mg Q8 PO Last administered on 10/04/16 06:24; Admin Dose 0.2 MG; Start 09/27/16 at 08:30 Hydralazine HCl (Apresoline) 100 mg TID PO Last administered on 10/03/16 21:00 ; Admin Dose 100 MG; Start 09/27/16 at 09:00 Lisinopril (Zestril) 20 mg BID PO Last administered on 10/03/16 20:58; Admin Dose 20 MG; Start 09/27/16 at 09:00 Metoprolol Tartrate (Lopressor) 50 mg TID PO Last administered on 10/03/16 21: 00; Admin Dose 50 MG; Start 09/27/16 at 09:00 Pantoprazole (Protonix Tab) 40 mg DAILY PO Last administered on 10/03/16 09:42 ; Admin Dose 40 MG; Start 09/27/16 at 09:00 Multivit/Ca Carb/ B Cmplx/FA/Prenat (Rosalba-Caitlin) 1 tab DAILY PO Last administered on 10/03/16 09:44; Admin Dose 1 TAB; Start 09/27/16 at 09:00 Hydralazine HCl (Apresoline) 20 mg Q6H PRN IV sbp>170mmhg; Start 09/27/16 at 08 :30 Labetalol HCl (Labetalol) 20 mg Q4H PRN IV sbp>160mmhg; Start 09/27/16 at 08:30 Docusate Sodium (Colace) 100 mg BID PO Last administered on 10/03/16 09:40; Admin Dose 100 MG; Start 09/27/16 at 09:00 Tamsulosin HCl (Flomax) 0.4 mg BID PO Last administered on 10/03/16 20:59; Admin Dose 0.4 MG; Start 09/27/16 at 21:00 Diphenhydramine HCl (Benadryl) 25 mg Q6H PRN PO ITCHING Last administered on 16:56; Admin Dose 25 MG; Start 09/29/16 at 17:00 Heparin Sodium (Porcine) (Heparin (5000 Units/0.5 ml)) 5,000 unit BID SC ; Start 09/29/16 at 21:12; Status Future Hold Linezolid (Zyvox) 600 mg BID PO Last administered on 10/03/16 20:59; Admin Dose 600 MG; Start 09/30/16 at 10:00 Epoetin Ottoniel (Epogen (Esrd)) 4,000 units MoWeFr@17 SC Last administered on 10/03 17:39; Admin Dose 4,000 UNITS; Start 10/03/16 at 17:00 CON PERRIN Oct 04, 2016 06:50
[2016-10-04 07:11] LABS: CALCIUM 8.4 mg/dl (8.4-10.2); CREATININE 7.1 mg/dl (0.61-1.24); POTASSIUM 4.7 mmol/L (3.5-5.1)
[2016-10-04] MEDS: MULTIVIT/CA CARB/B CMPLX/FA TAB PO SCH (09:10)
[2016-10-04] MEDS: TAMSULOSIN (SR) 0.4 MG CAP PO SCH ×2 (09:10→20:16)
[2016-10-04] MEDS: LISINOPRIL 20 MG TAB PO SCH ×2 (09:11→20:17)
[2016-10-04] MEDS: PANTOPRAZOLE (EC) 40 MG TAB PO SCH (09:11)
[2016-10-04] MEDS: ZYVOX 600 MG TAB PO SCH ×2 (09:11→20:16)
[2016-10-04] MEDS: DOCUSATE SODIUM 100 MG CAP PO SCH ×2 (09:12→20:16)
[2016-10-04] MEDS: AMLODIPINE 10 MG TAB PO SCH (09:12)
[2016-10-04] MEDS: AMIODARONE 200 MG TAB PO SCH (09:13)
[2016-10-04] MEDS: METOPROLOL 50 MG TAB PO SCH ×3 (09:15→20:16)
--- NOTE | 2016-10-04 12:47 | CONS ---
Date/Time of Note Date/Time of Note DATE: 10/04/16 TIME: 12:46 Assessment/Plan Assessment/Plan Chief Complaint/Hosp Course SUBJECTIVE DATA: Patient is sleeping, looks comfortable. No hematuria. ANTIMICROBIALS: He is on Zyvox, day #5 Indwelling: Mckeon, PermCath. OBJECTIVE DATA: GENERAL: This is a well-developed, fragile, elderly man, who is in no distress. HEENT: Head atraumatic, normocephalic. Sclerae anicteric. Buccal mucosa pink. NECK: Supple. RESPIRATORY: Chest rise symmetrical. Breath sounds clear. Diminished at bases. HEART: S1, S2. ABDOMEN: Soft, bowel sounds present. EXTREMITIES: Without cyanosis. ASSESSMENT: 1. Vancomycin-resistant enterococcus urinary tract infection with hematuria, resolving. 2. Pleural effusions, status post thoracentesis with pleural fluid cultures negative. 3. End-stage renal disease, hemodialysis dependent. 4. Hypertension. PLAN: Patient remains stable. Continue abx for 2 more days DW staff Problems: Consultation Date/Type/Reason Admit Date/Time Sep 27, 2016 at 05:51 Initial Consult Date 09/27/16 Type of Consultation: ID Referring Provider: ANUM SYED Exam/Review of Systems Vital Signs Vitals Vital Signs Date Time Temp Pulse Resp B/P Pulse Ox O2 Delivery O2 Flow Rate FiO2 10/04/16 12:04 60 10/04/16 11:48 98.3 17 125/79 97 10/01/16 04:00 Room Air Intake and Output 10/03/16 10/03/16 10/04/16 15:00 23:00 07:00 Intake Total 500 ml 300 ml Output Total 450 ml 400 ml Balance 50 ml -100 ml Results Result Diagram: 10/03/16 0555 10/04/16 0612 Results 24 hrs Laboratory Tests Test 10/04/16 06:12 Sodium Level 130 L Potassium Level 4.7 Chloride Level 91 L Carbon Dioxide Level 25 Anion Gap 19 H Blood Urea Nitrogen 42 #H Creatinine 7.10 H Glucose Level 81 Calcium Level 8.4 Medications Medications Current Medications Amiodarone HCl (Cordarone) 200 mg DAILY PO Last administered on 10/04/16 09:13 ; Admin Dose 200 MG; Start 09/27/16 at 09:00 Amlodipine Besylate (Norvasc) 10 mg DAILY PO Last administered on 10/04/16 09: 12; Admin Dose 10 MG; Start 09/27/16 at 09:00 Clonidine (Catapres) 0.2 mg Q8 PO Last administered on 10/04/16 06:24; Admin Dose 0.2 MG; Start 09/27/16 at 08:30 Hydralazine HCl (Apresoline) 100 mg TID PO Last administered on 10/04/16 09:15 ; Admin Dose 100 MG; Start 09/27/16 at 09:00 Lisinopril (Zestril) 20 mg BID PO Last administered on 10/04/16 09:11; Admin Dose 20 MG; Start 09/27/16 at 09:00 Metoprolol Tartrate (Lopressor) 50 mg TID PO Last administered on 10/04/16 09: 15; Admin Dose 50 MG; Start 09/27/16 at 09:00 Pantoprazole (Protonix Tab) 40 mg DAILY PO Last administered on 10/04/16 09:11 ; Admin Dose 40 MG; Start 09/27/16 at 09:00 Multivit/Ca Carb/ B Cmplx/FA/Prenat (Rosalba-Caitlin) 1 tab DAILY PO Last administered on 10/04/16 09:10; Admin Dose 1 TAB; Start 09/27/16 at 09:00 Hydralazine HCl (Apresoline) 20 mg Q6H PRN IV sbp>170mmhg; Start 09/27/16 at 08 :30 Labetalol HCl (Labetalol) 20 mg Q4H PRN IV sbp>160mmhg; Start 09/27/16 at 08:30 Docusate Sodium (Colace) 100 mg BID PO Last administered on 10/04/16 09:12; Admin Dose 100 MG; Start 09/27/16 at 09:00 Tamsulosin HCl (Flomax) 0.4 mg BID PO Last administered on 10/04/16 09:10; Admin Dose 0.4 MG; Start 09/27/16 at 21:00 Diphenhydramine HCl (Benadryl) 25 mg Q6H PRN PO ITCHING Last administered on 16:56; Admin Dose 25 MG; Start 09/29/16 at 17:00 Heparin Sodium (Porcine) (Heparin (5000 Units/0.5 ml)) 5,000 unit BID SC ; Start 09/29/16 at 21:12; Status Future Hold Linezolid (Zyvox) 600 mg BID PO Last administered on 10/04/16 09:11; Admin Dose 600 MG; Start 09/30/16 at 10:00 Epoetin Ottoniel (Epogen (Esrd)) 4,000 units MoWeFr@17 SC Last administered on 10/03 17:39; Admin Dose 4,000 UNITS; Start 10/03/16 at 17:00 ASHER NUGENT NP Oct 04, 2016 12:47
--- NOTE | 2016-10-04 16:01 | PN ---
Date/Time of Note Date/Time of Note DATE: 10/04/16 TIME: 16:00 Assessment/Plan VTE Prophylaxis VTE Prophylaxis Intervention: SCD's Lines/Catheters IV Catheter Type (from Nrs): perma cath Assessment/Plan Chief Complaint/Hosp Course 61 yo male with ESRD of unclear etiology, hypertension, and BPH who presents with pleural effusion and bladder outlet obstruction causing b/l hydronephrosis Pleural effusion likely from acute diastolic CHF exacerbation: - s/p therapeutic/diagnostic thoracentesis. Labs transudative - Continue HD per renal ESRD: - Unclear etiology of renal disease - HD per renal Hypertension: - Continue current management BPH leading to acute EWING and hydronephrosis, hematuria: - Dr Lanza was contacted. Does not feel urgent need to see patient. Says he will see patient prior to discharge and wants to be contacted then - Continue flomax to 0.4 BID and finasteride - Continue barraza until procedure preformed to prostate - Will likely need prostate resection - Significant hematuria concerning for malignancy Complicated UTI 2/2 VRE - Zyvox per ID will continue for another several days PPX: SCDs Problems: Subjective 24 Hr Interval Summary Constitutional: no complaints Exam/Review of Systems Vital Signs Vitals Vital Signs Date Time Temp Pulse Resp B/P Pulse Ox O2 Delivery O2 Flow Rate FiO2 10/04/16 15:44 97.2 55 17 145/82 96 10/01/16 04:00 Room Air Intake and Output 10/03/16 10/03/16 10/04/16 15:00 23:00 07:00 Intake Total 500 ml 300 ml Output Total 450 ml 400 ml Balance 50 ml -100 ml Exam Constitutional: alert, oriented Respiratory: clear to auscultation Cardiovascular: regular rate and rhythm Gastrointestinal: soft, No distended Musculoskeletal: nl extremities to inspection Results Result Diagram: 10/03/16 0555 10/04/16 0612 Results 24 hrs Laboratory Tests Test 10/04/16 06:12 Sodium Level 130 L Potassium Level 4.7 Chloride Level 91 L Carbon Dioxide Level 25 Anion Gap 19 H Blood Urea Nitrogen 42 #H Creatinine 7.10 H Glucose Level 81 Calcium Level 8.4 Medications Medications Current Medications Amiodarone HCl (Cordarone) 200 mg DAILY PO Last administered on 10/04/16t 09:13 ; Admin Dose 200 MG; Start 09/27/16 at 09:00 Amlodipine Besylate (Norvasc) 10 mg DAILY PO Last administered on 10/04/16 09: 12; Admin Dose 10 MG; Start 09/27/16 at 09:00 Clonidine (Catapres) 0.2 mg Q8 PO Last administered on 10/04/16 06:24; Admin Dose 0.2 MG; Start 09/27/16 at 08:30 Hydralazine HCl (Apresoline) 100 mg TID PO Last administered on 10/04/16 09:15 ; Admin Dose 100 MG; Start 09/27/16 at 09:00 Lisinopril (Zestril) 20 mg BID PO Last administered on 10/04/16 09:11; Admin Dose 20 MG; Start 09/27/16 at 09:00 Metoprolol Tartrate (Lopressor) 50 mg TID PO Last administered on 10/04/16 09: 15; Admin Dose 50 MG; Start 09/27/16 at 09:00 Pantoprazole (Protonix Tab) 40 mg DAILY PO Last administered on 10/04/16 09:11 ; Admin Dose 40 MG; Start 09/27/16 at 09:00 Multivit/Ca Carb/ B Cmplx/FA/Prenat (Rosalba-Caitlin) 1 tab DAILY PO Last administered on 10/04/16 09:10; Admin Dose 1 TAB; Start 09/27/16 at 09:00 Hydralazine HCl (Apresoline) 20 mg Q6H PRN IV sbp>170mmhg; Start 09/27/16 at 08 :30 Labetalol HCl (Labetalol) 20 mg Q4H PRN IV sbp>160mmhg; Start 09/27/16 at 08:30 Docusate Sodium (Colace) 100 mg BID PO Last administered on 10/04/16 09:12; Admin Dose 100 MG; Start 09/27/16 at 09:00 Tamsulosin HCl (Flomax) 0.4 mg BID PO Last administered on 10/04/16 09:10; Admin Dose 0.4 MG; Start 09/27/16 at 21:00 Diphenhydramine HCl (Benadryl) 25 mg Q6H PRN PO ITCHING Last administered on 16:56; Admin Dose 25 MG; Start 09/29/16 at 17:00 Heparin Sodium (Porcine) (Heparin (5000 Units/0.5 ml)) 5,000 unit BID SC ; Start 09/29/16 at 21:12; Status Future Hold Linezolid (Zyvox) 600 mg BID PO Last administered on 10/04/16 09:11; Admin Dose 600 MG; Start 09/30/16 at 10:00 Epoetin Ottoniel (Epogen (Esrd)) 4,000 units MoWeFr@17 SC Last administered on 10/03 17:39; Admin Dose 4,000 UNITS; Start 10/03/16 at 17:00 KENJI ROLDAN Oct 04, 2016 16:01
--- NOTE | 2016-10-04 19:23 | CONS ---
Date/Time of Note Date/Time of Note DATE: 10/04/16 TIME: 19:22 Assessment/Plan Assessment/Plan Additional Assessment/Plan (1) Hematuria Comment: may benefit from bladder irrigation. (2) Hypertension Status: Acute Comment: under control Qualifiers: Hypertension type: essential hypertension Qualified Code: I10 - Essential hypertension (3) Pleural effusion Status: Acute Comment: s/p thoracentasis (4) ESRD (end stage renal disease) on dialysis Comment: HD TTS, S/p HD Consultation Date/Type/Reason Admit Date/Time Sep 27, 2016 at 05:51 Initial Consult Date 09/27/16 Type of Consultation: Renal Referring Provider: ANUM SYED 24 HR Interval Summary Constitutional: No requiring O2 Exam/Review of Systems Vital Signs Vitals Vital Signs Date Time Temp Pulse Resp B/P Pulse Ox O2 Delivery O2 Flow Rate FiO2 10/04/16 17:00 73 17 10/04/16 15:44 97.2 145/82 96 10/01/16 04:00 Room Air Intake and Output 10/03/16 10/03/16 10/04/16 15:00 23:00 07:00 Intake Total 500 ml 300 ml Output Total 450 ml 400 ml Balance 50 ml -100 ml Exam Constitutional: No distress ENMT: mucosa pink and moist Neck: No jvd Cardiovascular: regular rate and rhythm, No edema Gastrointestinal: non-tender, soft Neurological: STRIPPER OPAQUER II-XII intact, nl mental status, No lethargic Results Result Diagram: 10/03/16 0555 10/04/16 0612 Results 24 hrs Laboratory Tests Test 10/04/16 06:12 Sodium Level 130 L Potassium Level 4.7 Chloride Level 91 L Carbon Dioxide Level 25 Anion Gap 19 H Blood Urea Nitrogen 42 #H Creatinine 7.10 H Glucose Level 81 Calcium Level 8.4 Medications Medications Current Medications Amiodarone HCl (Cordarone) 200 mg DAILY PO Last administered on 10/04/16 09:13 ; Admin Dose 200 MG; Start 09/27/16 at 09:00 Amlodipine Besylate (Norvasc) 10 mg DAILY PO Last administered on 10/04/16 09: 12; Admin Dose 10 MG; Start 09/27/16 at 09:00 Clonidine (Catapres) 0.2 mg Q8 PO Last administered on 10/04/16 06:24; Admin Dose 0.2 MG; Start 09/27/16 at 08:30 Hydralazine HCl (Apresoline) 100 mg TID PO Last administered on 10/04/16 09:15 ; Admin Dose 100 MG; Start 09/27/16 at 09:00 Lisinopril (Zestril) 20 mg BID PO Last administered on 10/04/16 09:11; Admin Dose 20 MG; Start 09/27/16 at 09:00 Metoprolol Tartrate (Lopressor) 50 mg TID PO Last administered on 10/04/16 09: 15; Admin Dose 50 MG; Start 09/27/16 at 09:00 Pantoprazole (Protonix Tab) 40 mg DAILY PO Last administered on 10/04/16 09:11 ; Admin Dose 40 MG; Start 09/27/16 at 09:00 Multivit/Ca Carb/ B Cmplx/FA/Prenat (Rosalba-Caitlin) 1 tab DAILY PO Last administered on 10/04/16 09:10; Admin Dose 1 TAB; Start 09/27/16 at 09:00 Hydralazine HCl (Apresoline) 20 mg Q6H PRN IV sbp>170mmhg; Start 09/27/16 at 08 :30 Labetalol HCl (Labetalol) 20 mg Q4H PRN IV sbp>160mmhg; Start 09/27/16 at 08:30 Docusate Sodium (Colace) 100 mg BID PO Last administered on 10/04/16 09:12; Admin Dose 100 MG; Start 09/27/16 at 09:00 Tamsulosin HCl (Flomax) 0.4 mg BID PO Last administered on 10/04/16 09:10; Admin Dose 0.4 MG; Start 09/27/16 at 21:00 Diphenhydramine HCl (Benadryl) 25 mg Q6H PRN PO ITCHING Last administered on 16:56; Admin Dose 25 MG; Start 09/29/16 at 17:00 Heparin Sodium (Porcine) (Heparin (5000 Units/0.5 ml)) 5,000 unit BID SC ; Start 09/29/16 at 21:12; Status Future Hold Linezolid (Zyvox) 600 mg BID PO Last administered on 10/04/16 09:11; Admin Dose 600 MG; Start 09/30/16 at 10:00 Epoetin Ottoniel (Epogen (Esrd)) 4,000 units MoWeFr@17 SC Last administered on 10/03 17:39; Admin Dose 4,000 UNITS; Start 10/03/16 at 17:00 KEVIN BROWNE MD Oct 04, 2016 19:23
[2016-10-05] VITALS (12 sets, daily range): BP systolic 129–161; BP diastolic 79–92; PULSE 56–63; RESP 18–19
--- NOTE | 2016-10-05 07:00 | CONS ---
Date/Time of Note Date/Time of Note DATE: 10/05/16 TIME: 07:00 Assessment/Plan Assessment/Plan Chief Complaint/Hosp Course Acute on chronic diastolic heart failure: decompensated by exam on admission. EF ~50%. Now euvolemic Hematuria: per pt he has had a cystoscopy before. Resolving ESRD on HD: TTS HTN: BP uncontrolled on multiple meds on admission. Volume overload also contributing. Now better ?dispo -HD per nephrology -antibiotics per primary/ID teams -amlodipine 10mg -clonidine 0.2mg TID -metoprolol 50mg TID -hydralazine 100mg TID -lisinopril 20mg BID Problems: Consultation Date/Type/Reason Admit Date/Time Sep 27, 2016 at 05:51 Initial Consult Date 09/27/16 Type of Consultation: Cardiology Referring Provider: ANUM SYED 24 HR Interval Summary Free Text/Dictation No o/n events. Exam/Review of Systems Vital Signs Vitals Vital Signs Date Time Temp Pulse Resp B/P Pulse Ox O2 Delivery O2 Flow Rate FiO2 10/05/16 04:10 63 10/05/16 04:03 97.7 18 152/86 94 Intake and Output 10/04/16 10/04/16 10/05/16 15:00 23:00 07:00 Intake Total 1100 ml 400 ml Output Total 3600 ml 350 ml Balance -2500 ml 50 ml Exam Constitutional: alert, oriented Psych: nl mood/affect, no complaints Head: atraumatic, normocephalic Neck: No jvd Respiratory: clear to auscultation, No crackles/rales Cardiovascular: regular rate and rhythm, No edema Gastrointestinal: non-tender, soft Musculoskeletal: nl extremities to inspection Neurological: nl mental status, nl speech Results Result Diagram: 10/03/16 0555 10/04/16 0612 Medications Medications Current Medications Amiodarone HCl (Cordarone) 200 mg DAILY PO Last administered on 10/04/16 09:13 ; Admin Dose 200 MG; Start 09/27/16 at 09:00 Amlodipine Besylate (Norvasc) 10 mg DAILY PO Last administered on 10/04/16 09: 12; Admin Dose 10 MG; Start 09/27/16 at 09:00 Clonidine (Catapres) 0.2 mg Q8 PO Last administered on 10/05/16 05:51; Admin Dose 0.2 MG; Start 09/27/16 at 08:30 Hydralazine HCl (Apresoline) 100 mg TID PO Last administered on 10/04/16 20:17 ; Admin Dose 100 MG; Start 09/27/16 at 09:00 Lisinopril (Zestril) 20 mg BID PO Last administered on 10/04/16 20:17; Admin Dose 20 MG; Start 09/27/16 at 09:00 Metoprolol Tartrate (Lopressor) 50 mg TID PO Last administered on 10/04/16 20: 16; Admin Dose 50 MG; Start 09/27/16 at 09:00 Pantoprazole (Protonix Tab) 40 mg DAILY PO Last administered on 10/04/16 09:11 ; Admin Dose 40 MG; Start 09/27/16 at 09:00 Multivit/Ca Carb/ B Cmplx/FA/Prenat (Rosalba-Caitlin) 1 tab DAILY PO Last administered on 10/04/16 09:10; Admin Dose 1 TAB; Start 09/27/16 at 09:00 Hydralazine HCl (Apresoline) 20 mg Q6H PRN IV sbp>170mmhg; Start 09/27/16 at 08 :30 Labetalol HCl (Labetalol) 20 mg Q4H PRN IV sbp>160mmhg; Start 09/27/16 at 08:30 Docusate Sodium (Colace) 100 mg BID PO Last administered on 10/04/16 20:16; Admin Dose 100 MG; Start 09/27/16 at 09:00 Tamsulosin HCl (Flomax) 0.4 mg BID PO Last administered on 10/04/16 20:16; Admin Dose 0.4 MG; Start 09/27/16 at 21:00 Diphenhydramine HCl (Benadryl) 25 mg Q6H PRN PO ITCHING Last administered on 16:56; Admin Dose 25 MG; Start 09/29/16 at 17:00 Heparin Sodium (Porcine) (Heparin (5000 Units/0.5 ml)) 5,000 unit BID SC ; Start 09/29/16 at 21:12; Status Future Hold Linezolid (Zyvox) 600 mg BID PO Last administered on 10/04/16 20:16; Admin Dose 600 MG; Start 09/30/16 at 10:00 Epoetin Ottoniel (Epogen (Esrd)) 4,000 units MoWeFr@17 SC Last administered on 10/03 17:39; Admin Dose 4,000 UNITS; Start 10/03/16 at 17:00 CON PERRIN Oct 05, 2016 07:00
[2016-10-05 08:11] LABS: BASOPHIL # 0.1 10^3/ul (0.0-0.1); BASOPHILS % 1.2 % (0.0-2.0); EOSINOPHILS # 0.3 10^3/ul (0.0-0.5); HEMATOCRIT 30.5 % (42.0-52.0); HEMOGLOBIN 10.1 g/dl (14.0-18.0); LYMPHOCYTES # 2.5 10^3/ul (0.8-2.9); MEAN CORPUSCULAR HEMOGLOBIN 28.9 pg (29.0-33.0); MEAN CORPUSCULAR HGB CONC 33.1 g/dl (32.0-37.0); MEAN CORPUSCULAR VOLUME 87.1 fl (82.0-101.0); MEAN PLATELET VOLUME 10.8 fl (7.4-10.4); MONOCYTE # 0.5 10^3/ul (0.3-0.9); MONOCYTES % 7.2 % (0.0-11.0); NEUTROPHILS % 50.3 % (39.0-77.0); PLATELET COUNT 113 10^3/UL (140-415); RED CELL DISTRIBUTION WIDTH 14.6 % (11.5-14.5); WHITE BLOOD COUNT 6.7 10^3/ul (4.8-10.8)
[2016-10-05 08:40] LABS: CALCIUM 8.3 mg/dl (8.4-10.2); CREATININE 5.68 mg/dl (0.61-1.24)
[2016-10-05] MEDS: DOCUSATE SODIUM 100 MG CAP PO SCH ×2 (09:28→21:09)
[2016-10-05] MEDS: PANTOPRAZOLE (EC) 40 MG TAB PO SCH (09:28)
[2016-10-05] MEDS: ZYVOX 600 MG TAB PO SCH ×2 (09:29→21:08)
[2016-10-05] MEDS: TAMSULOSIN (SR) 0.4 MG CAP PO SCH ×2 (09:29→21:08)
[2016-10-05] MEDS: MULTIVIT/CA CARB/B CMPLX/FA TAB PO SCH (09:29)
[2016-10-05] MEDS: LISINOPRIL 20 MG TAB PO SCH ×2 (09:30→21:09)
[2016-10-05] MEDS: AMLODIPINE 10 MG TAB PO SCH (09:31)
[2016-10-05] MEDS: METOPROLOL 50 MG TAB PO SCH ×3 (09:31→21:00)
[2016-10-05] MEDS: AMIODARONE 200 MG TAB PO SCH (09:31)
--- NOTE | 2016-10-05 13:56 | CONS ---
Date/Time of Note Date/Time of Note DATE: 10/05/16 TIME: 13:55 Assessment/Plan Assessment/Plan Chief Complaint/Hosp Course SUBJECTIVE DATA: Alert, feels good, denies pain, no fevers, nad ANTIMICROBIALS: He is on Zyvox, day #6 Indwelling: Mckeon, PermCath. OBJECTIVE DATA: GENERAL: This is a well-developed, fragile, elderly man, who is in no distress. HEENT: Head atraumatic, normocephalic. Sclerae anicteric. Buccal mucosa pink. NECK: Supple. RESPIRATORY: Chest rise symmetrical. Breath sounds clear. Diminished at bases. HEART: S1, S2. ABDOMEN: Soft, bowel sounds present. EXTREMITIES: Without cyanosis. ASSESSMENT: 1. Vancomycin-resistant enterococcus urinary tract infection with hematuria, resolving. 2. Pleural effusions, status post thoracentesis with pleural fluid cultures negative. 3. End-stage renal disease, hemodialysis dependent. 4. Hypertension. PLAN: Patient remains stable, completing abx DW staff Problems: Consultation Date/Type/Reason Admit Date/Time Sep 27, 2016 at 05:51 Initial Consult Date 09/27/16 Type of Consultation: ID Referring Provider: ANUM SYED Exam/Review of Systems Vital Signs Vitals Vital Signs Date Time Temp Pulse Resp B/P Pulse Ox O2 Delivery O2 Flow Rate FiO2 10/05/16 12:25 59 10/05/16 12:08 98.3 18 148/86 96 Intake and Output 10/04/16 10/04/16 10/05/16 15:00 23:00 07:00 Intake Total 1100 ml 400 ml Output Total 3600 ml 350 ml Balance -2500 ml 50 ml Results Result Diagram: 10/05/16 0701 10/05/16 0701 Results 24 hrs Laboratory Tests Test 10/05/16 07:01 White Blood Count 6.7 Red Blood Count 3.50 L Hemoglobin 10.1 L Hematocrit 30.5 L Mean Corpuscular Volume 87.1 Mean Corpuscular Hemoglobin 28.9 L Mean Corpuscular Hemoglobin Concent 33.1 Red Cell Distribution Width 14.6 H Platelet Count 113 #L Mean Platelet Volume 10.8 H Neutrophils % 50.3 Lymphocytes % 37.0 Monocytes % 7.2 Eosinophils % 4.0 Basophils % 1.2 Nucleated Red Blood Cells % 0.0 Neutrophils # (Manual) 3.4 Lymphocytes # 2.5 Monocytes # 0.5 Eosinophils # 0.3 Basophils # 0.1 Nucleated Red Blood Cells # 0.0 Sodium Level 132 L Potassium Level 4.0 Chloride Level 91 L Carbon Dioxide Level 28 Anion Gap 17 H Blood Urea Nitrogen 29 #H Creatinine 5.68 H Glucose Level 78 Calcium Level 8.3 L Magnesium Level 2.0 Medications Medications Current Medications Amiodarone HCl (Cordarone) 200 mg DAILY PO Last administered on 10/05/16 09:31 ; Admin Dose 200 MG; Start 09/27/16 at 09:00 Amlodipine Besylate (Norvasc) 10 mg DAILY PO Last administered on 10/05/16 09: 31; Admin Dose 10 MG; Start 09/27/16 at 09:00 Clonidine (Catapres) 0.2 mg Q8 PO Last administered on 10/05/16 13:30; Admin Dose 0.2 MG; Start 09/27/16 at 08:30 Hydralazine HCl (Apresoline) 100 mg TID PO Last administered on 10/05/16 13:30 ; Admin Dose 100 MG; Start 09/27/16 at 09:00 Lisinopril (Zestril) 20 mg BID PO Last administered on 10/05/16 09:30; Admin Dose 20 MG; Start 09/27/16 at 09:00 Metoprolol Tartrate (Lopressor) 50 mg TID PO Last administered on 10/05/16 09: 31; Admin Dose 50 MG; Start 09/27/16 at 09:00 Pantoprazole (Protonix Tab) 40 mg DAILY PO Last administered on 10/05/16 09:28 ; Admin Dose 40 MG; Start 09/27/16 at 09:00 Multivit/Ca Carb/ B Cmplx/FA/Prenat (Rosalba-Caitlin) 1 tab DAILY PO Last administered on 10/05/16 09:29; Admin Dose 1 TAB; Start 09/27/16 at 09:00 Hydralazine HCl (Apresoline) 20 mg Q6H PRN IV sbp>170mmhg; Start 09/27/16 at 08 :30 Labetalol HCl (Labetalol) 20 mg Q4H PRN IV sbp>160mmhg; Start 09/27/16 at 08:30 Docusate Sodium (Colace) 100 mg BID PO Last administered on 10/05/16 09:28; Admin Dose 100 MG; Start 09/27/16 at 09:00 Tamsulosin HCl (Flomax) 0.4 mg BID PO Last administered on 10/05/16 09:29; Admin Dose 0.4 MG; Start 09/27/16 at 21:00 Diphenhydramine HCl (Benadryl) 25 mg Q6H PRN PO ITCHING Last administered on 16:56; Admin Dose 25 MG; Start 09/29/16 at 17:00 Heparin Sodium (Porcine) (Heparin (5000 Units/0.5 ml)) 5,000 unit BID SC ; Start 09/29/16 at 21:12; Status Future Hold Linezolid (Zyvox) 600 mg BID PO Last administered on 10/05/16 09:29; Admin Dose 600 MG; Start 09/30/16 at 10:00 Epoetin Ottoniel (Epogen (Esrd)) 4,000 units MoWeFr@17 SC Last administered on 10/03 17:39; Admin Dose 4,000 UNITS; Start 10/03/16 at 17:00 ASHER NUGENT NP Oct 05, 2016 13:56
--- NOTE | 2016-10-05 15:04 | PN ---
Date/Time of Note Date/Time of Note DATE: 10/05/16 TIME: 15:03 Assessment/Plan VTE Prophylaxis VTE Prophylaxis Intervention: SCD's Lines/Catheters IV Catheter Type (from Nrs): Permacath Assessment/Plan Chief Complaint/Hosp Course 61 yo male with ESRD of unclear etiology, hypertension, and BPH who presents with pleural effusion and bladder outlet obstruction causing b/l hydronephrosis Pleural effusion likely from acute diastolic CHF exacerbation: - s/p therapeutic/diagnostic thoracentesis. Labs transudative - Continue HD per renal ESRD: - Unclear etiology of renal disease - HD per renal Hypertension: - Continue current management BPH leading to acute EWING and hydronephrosis, hematuria: - Dr Lanza was contacted. Does not feel urgent need to see patient. Says he will see patient prior to discharge and wants to be contacted then - Continue flomax to 0.4 BID and finasteride - Continue barraza until procedure preformed to prostate - Will likely need prostate resection - Significant hematuria concerning for malignancy Complicated UTI 2/2 VRE - Zyvox per ID will continue for another several days PPX: SCDs Problems: Subjective 24 Hr Interval Summary Constitutional: no complaints Exam/Review of Systems Vital Signs Vitals Vital Signs Date Time Temp Pulse Resp B/P Pulse Ox O2 Delivery O2 Flow Rate FiO2 10/05/16 12:25 59 10/05/16 12:08 98.3 18 148/86 96 Intake and Output 10/04/16 10/04/16 10/05/16 15:00 23:00 07:00 Intake Total 1100 ml 400 ml Output Total 3600 ml 350 ml Balance -2500 ml 50 ml Exam Constitutional: alert, oriented Respiratory: clear to auscultation Cardiovascular: regular rate and rhythm Gastrointestinal: soft, No distended Musculoskeletal: nl extremities to inspection Results Result Diagram: 10/05/16 0701 10/05/16 0701 Results 24 hrs Laboratory Tests Test 10/05/16 07:01 White Blood Count 6.7 Red Blood Count 3.50 L Hemoglobin 10.1 L Hematocrit 30.5 L Mean Corpuscular Volume 87.1 Mean Corpuscular Hemoglobin 28.9 L Mean Corpuscular Hemoglobin Concent 33.1 Red Cell Distribution Width 14.6 H Platelet Count 113 #L Mean Platelet Volume 10.8 H Neutrophils % 50.3 Lymphocytes % 37.0 Monocytes % 7.2 Eosinophils % 4.0 Basophils % 1.2 Nucleated Red Blood Cells % 0.0 Neutrophils # (Manual) 3.4 Lymphocytes # 2.5 Monocytes # 0.5 Eosinophils # 0.3 Basophils # 0.1 Nucleated Red Blood Cells # 0.0 Sodium Level 132 L Potassium Level 4.0 Chloride Level 91 L Carbon Dioxide Level 28 Anion Gap 17 H Blood Urea Nitrogen 29 #H Creatinine 5.68 H Glucose Level 78 Calcium Level 8.3 L Magnesium Level 2.0 Medications Medications Current Medications Amiodarone HCl (Cordarone) 200 mg DAILY PO Last administered on 10/05/16 09:31 ; Admin Dose 200 MG; Start 09/27/16 at 09:00 Amlodipine Besylate (Norvasc) 10 mg DAILY PO Last administered on 10/05/16 09: 31; Admin Dose 10 MG; Start 09/27/16 at 09:00 Clonidine (Catapres) 0.2 mg Q8 PO Last administered on 10/05/16 13:30; Admin Dose 0.2 MG; Start 09/27/16 at 08:30 Hydralazine HCl (Apresoline) 100 mg TID PO Last administered on 10/05/16 13:30 ; Admin Dose 100 MG; Start 09/27/16 at 09:00 Lisinopril (Zestril) 20 mg BID PO Last administered on 10/05/16 09:30; Admin Dose 20 MG; Start 09/27/16 at 09:00 Metoprolol Tartrate (Lopressor) 50 mg TID PO Last administered on 10/05/16 09: 31; Admin Dose 50 MG; Start 09/27/16 at 09:00 Pantoprazole (Protonix Tab) 40 mg DAILY PO Last administered on 10/05/16 09:28 ; Admin Dose 40 MG; Start 09/27/16 at 09:00 Multivit/Ca Carb/ B Cmplx/FA/Prenat (Rosalba-Caitlin) 1 tab DAILY PO Last administered on 10/05/16 09:29; Admin Dose 1 TAB; Start 09/27/16 at 09:00 Hydralazine HCl (Apresoline) 20 mg Q6H PRN IV sbp>170mmhg; Start 09/27/16 at 08 :30 Labetalol HCl (Labetalol) 20 mg Q4H PRN IV sbp>160mmhg; Start 09/27/16 at 08:30 Docusate Sodium (Colace) 100 mg BID PO Last administered on 10/05/16 09:28; Admin Dose 100 MG; Start 09/27/16 at 09:00 Tamsulosin HCl (Flomax) 0.4 mg BID PO Last administered on 10/05/16 09:29; Admin Dose 0.4 MG; Start 09/27/16 at 21:00 Diphenhydramine HCl (Benadryl) 25 mg Q6H PRN PO ITCHING Last administered on 16:56; Admin Dose 25 MG; Start 09/29/16 at 17:00 Heparin Sodium (Porcine) (Heparin (5000 Units/0.5 ml)) 5,000 unit BID SC ; Start 09/29/16 at 21:12; Status Future Hold Linezolid (Zyvox) 600 mg BID PO Last administered on 10/05/16 09:29; Admin Dose 600 MG; Start 09/30/16 at 10:00 Epoetin Ottoniel (Epogen (Esrd)) 4,000 units MoWeFr@17 SC Last administered on 10/03 17:39; Admin Dose 4,000 UNITS; Start 10/03/16 at 17:00 KENJI ROLDAN Oct 05, 2016 15:04
[2016-10-05] MEDS: EPOETIN 4000 UNITS/1 ML INJ (ESRD) SC SCH (17:52)
[2016-10-06] VITALS (17 sets, daily range): BP systolic 100–160; BP diastolic 61–90; PULSE 57–64; RESP 16–19
[2016-10-06] MEDS: DIPHENHYDRAMINE 25 MG CAP PO PRN (00:14)
[2016-10-06] MEDS: LISINOPRIL 20 MG TAB PO SCH ×2 (09:00→21:00)
[2016-10-06] MEDS: AMLODIPINE 10 MG TAB PO SCH (09:00)
[2016-10-06] MEDS: METOPROLOL 50 MG TAB PO SCH ×3 (09:00→21:00)
[2016-10-06] MEDS: MULTIVIT/CA CARB/B CMPLX/FA TAB PO SCH (09:03)
[2016-10-06] MEDS: ZYVOX 600 MG TAB PO SCH ×2 (09:03→21:48)
[2016-10-06] MEDS: DOCUSATE SODIUM 100 MG CAP PO SCH ×2 (09:03→21:48)
[2016-10-06] MEDS: PANTOPRAZOLE (EC) 40 MG TAB PO SCH (09:03)
[2016-10-06] MEDS: TAMSULOSIN (SR) 0.4 MG CAP PO SCH ×2 (09:03→21:48)
[2016-10-06] MEDS: AMIODARONE 200 MG TAB PO SCH (09:04)
--- NOTE | 2016-10-06 10:24 | CONS ---
Date/Time of Note Date/Time of Note DATE: 10/06/16 TIME: 10:23 Assessment/Plan Assessment/Plan Chief Complaint/Hosp Course Acute on chronic diastolic heart failure: decompensated by exam on admission. EF ~50%. Now euvolemic Hematuria: per pt he has had a cystoscopy before. ESRD on HD: TTS HTN: BP uncontrolled on multiple meds on admission. Volume overload also contributing. Now better ?dispo -HD per nephrology -antibiotics per primary/ID teams -amlodipine 10mg -clonidine 0.2mg TID -metoprolol 50mg TID -hydralazine 100mg TID -lisinopril 20mg BID Problems: Consultation Date/Type/Reason Admit Date/Time Sep 27, 2016 at 05:51 Initial Consult Date 09/27/16 Type of Consultation: Cardiology Referring Provider: ANUM SYED 24 HR Interval Summary Free Text/Dictation No o/n events Exam/Review of Systems Vital Signs Vitals Vital Signs Date Time Temp Pulse Resp B/P Pulse Ox O2 Delivery O2 Flow Rate FiO2 10/06/16 08:00 57 10/06/16 07:55 98.0 18 160/90 98 Intake and Output 10/05/16 10/05/16 10/06/16 14:59 22:59 06:59 Intake Total 950 ml 500 ml Output Total 250 ml 300 ml Balance 700 ml 200 ml Exam Constitutional: alert, oriented Psych: no complaints Head: atraumatic, normocephalic Neck: No jvd Respiratory: clear to auscultation, No crackles/rales Cardiovascular: regular rate and rhythm, No edema Gastrointestinal: non-tender, soft Musculoskeletal: nl extremities to inspection Neurological: nl mental status, nl speech Results Result Diagram: 10/05/16 0701 10/05/16 0701 Medications Medications Current Medications Amiodarone HCl (Cordarone) 200 mg DAILY PO Last administered on 10/06/16 09:04 ; Admin Dose 200 MG; Start 09/27/16 at 09:00 Amlodipine Besylate (Norvasc) 10 mg DAILY PO Last administered on 10/05/16 09: 31; Admin Dose 10 MG; Start 09/27/16 at 09:00 Clonidine (Catapres) 0.2 mg Q8 PO Last administered on 10/06/16 06:16; Admin Dose 0.2 MG; Start 09/27/16 at 08:30 Hydralazine HCl (Apresoline) 100 mg TID PO Last administered on 10/05/16 21:09 ; Admin Dose 100 MG; Start 09/27/16 at 09:00 Lisinopril (Zestril) 20 mg BID PO Last administered on 10/05/16 21:09; Admin Dose 20 MG; Start 09/27/16 at 09:00 Metoprolol Tartrate (Lopressor) 50 mg TID PO Last administered on 10/05/16 09: 31; Admin Dose 50 MG; Start 09/27/16 at 09:00 Pantoprazole (Protonix Tab) 40 mg DAILY PO Last administered on 10/06/16 09:03 ; Admin Dose 40 MG; Start 09/27/16 at 09:00 Multivit/Ca Carb/ B Cmplx/FA/Prenat (Rosalba-Caitlin) 1 tab DAILY PO Last administered on 10/06/16 09:03; Admin Dose 1 TAB; Start 09/27/16 at 09:00 Hydralazine HCl (Apresoline) 20 mg Q6H PRN IV sbp>170mmhg; Start 09/27/16 at 08 :30 Labetalol HCl (Labetalol) 20 mg Q4H PRN IV sbp>160mmhg; Start 09/27/16 at 08:30 Docusate Sodium (Colace) 100 mg BID PO Last administered on 10/06/16 09:03; Admin Dose 100 MG; Start 09/27/16 at 09:00 Tamsulosin HCl (Flomax) 0.4 mg BID PO Last administered on 10/06/16 09:03; Admin Dose 0.4 MG; Start 09/27/16 at 21:00 Diphenhydramine HCl (Benadryl) 25 mg Q6H PRN PO ITCHING Last administered on 00:14; Admin Dose 25 MG; Start 09/29/16 at 17:00 Heparin Sodium (Porcine) (Heparin (5000 Units/0.5 ml)) 5,000 unit BID SC ; Start 09/29/16 at 21:12; Status Future Hold Linezolid (Zyvox) 600 mg BID PO Last administered on 8/31/17at 09:03; Admin Dose 600 MG; Start 09/30/16 at 10:00 Epoetin Ottoniel (Epogen (Esrd)) 4,000 units MoWeFr@17 SC Last administered on 10/05t 17:52; Admin Dose 4,000 UNITS; Start 10/03/16 at 17:00 CON PERRIN Oct 06, 2016 10:24
[2016-10-06 11:51] LABS: ABNORMAL IP MESSAGE 1; BASOPHILS % 0.8 % (0.0-2.0); EOSINOPHILS # 0.2 10^3/ul (0.0-0.5); EOSINOPHILS % 4.9 % (0.0-7.0); HEMATOCRIT 31.3 % (42.0-52.0); HEMOGLOBIN 10.4 g/dl (14.0-18.0); LYMPHOCYTES # 1.2 10^3/ul (0.8-2.9); LYMPHOCYTES % 25.2 % (15.0-51.0); MEAN CORPUSCULAR HEMOGLOBIN 28.9 pg (29.0-33.0); MEAN CORPUSCULAR HGB CONC 33.2 g/dl (32.0-37.0); MEAN CORPUSCULAR VOLUME 86.9 fl (82.0-101.0); MEAN PLATELET VOLUME 10.7 fl (7.4-10.4); MONOCYTE # 0.1 10^3/ul (0.3-0.9); MONOCYTES % 2.3 % (0.0-11.0); NEUTROPHILS % 66.6 % (39.0-77.0); PLATELET COUNT 80 10^3/UL (140-415); POSITIVE DIFF @See below; RED CELL DISTRIBUTION WIDTH 14.4 % (11.5-14.5); WHITE BLOOD COUNT 4.7 10^3/ul (4.8-10.8)
[2016-10-06 12:54] LABS: CALCIUM 8.6 mg/dl (8.4-10.2); CREATININE 7.41 mg/dl (0.61-1.24); POTASSIUM 4.5 mmol/L (3.5-5.1)
--- NOTE | 2016-10-06 15:08 | CONS ---
Date/Time of Note Date/Time of Note DATE: 10/06/16 TIME: 15:08 Assessment/Plan Assessment/Plan Additional Assessment/Plan (1) Hematuria Comment: may benefit from bladder irrigation. (2) Hypertension Status: Acute Comment: under control Qualifiers: Hypertension type: essential hypertension Qualified Code: I10 - Essential hypertension (3) Pleural effusion Status: Acute Comment: s/p thoracentasis (4) ESRD (end stage renal disease) on dialysis Comment: HD TTS, HD Today Consultation Date/Type/Reason Admit Date/Time Sep 27, 2016 at 05:51 Initial Consult Date 09/27/16 Type of Consultation: Renal Referring Provider: ANUM SYED Exam/Review of Systems Vital Signs Vitals Vital Signs Date Time Temp Pulse Resp B/P Pulse Ox O2 Delivery O2 Flow Rate FiO2 10/06/16 12:24 98.0 67 18 131/70 98 Intake and Output 10/05/16 10/05/16 10/06/16 15:00 23:00 07:00 Intake Total 950 ml 500 ml Output Total 250 ml 300 ml Balance 700 ml 200 ml Results Result Diagram: 10/06/16 1000 10/06/16 1000 Results 24 hrs Laboratory Tests Test 10/06/16 10:00 White Blood Count 4.7 #L Red Blood Count 3.60 L Hemoglobin 10.4 L Hematocrit 31.3 L Mean Corpuscular Volume 86.9 Mean Corpuscular Hemoglobin 28.9 L Mean Corpuscular Hemoglobin Concent 33.2 Red Cell Distribution Width 14.4 Platelet Count 80 #L Mean Platelet Volume 10.7 H Neutrophils % 66.6 Lymphocytes % 25.2 Monocytes % 2.3 Eosinophils % 4.9 Basophils % 0.8 Nucleated Red Blood Cells % 0.0 Neutrophils # (Manual) 3.1 Lymphocytes # 1.2 Monocytes # 0.1 L Eosinophils # 0.2 Basophils # 0.0 Nucleated Red Blood Cells # 0.0 Sodium Level 131 L Potassium Level 4.5 Chloride Level 90 L Carbon Dioxide Level 26 Anion Gap 20 H Blood Urea Nitrogen 40 #H Creatinine 7.41 H Glucose Level 137 # Calcium Level 8.6 Medications Medications Current Medications Amiodarone HCl (Cordarone) 200 mg DAILY PO Last administered on 10/06/16t 09:04 ; Admin Dose 200 MG; Start 09/27/16 at 09:00 Amlodipine Besylate (Norvasc) 10 mg DAILY PO Last administered on 10/05/16 09: 31; Admin Dose 10 MG; Start 09/27/16 at 09:00 Clonidine (Catapres) 0.2 mg Q8 PO Last administered on 10/06/16 13:37; Admin Dose 0.2 MG; Start 09/27/16 at 08:30 Hydralazine HCl (Apresoline) 100 mg TID PO Last administered on 10/06/16 13:36 ; Admin Dose 100 MG; Start 09/27/16 at 09:00 Lisinopril (Zestril) 20 mg BID PO Last administered on 10/05/16 21:09; Admin Dose 20 MG; Start 09/27/16 at 09:00 Metoprolol Tartrate (Lopressor) 50 mg TID PO Last administered on 10/06/16 13: 37; Admin Dose 50 MG; Start 09/27/16 at 09:00 Pantoprazole (Protonix Tab) 40 mg DAILY PO Last administered on 10/06/16 09:03 ; Admin Dose 40 MG; Start 09/27/16 at 09:00 Multivit/Ca Carb/ B Cmplx/FA/Prenat (Rosalba-Caitlin) 1 tab DAILY PO Last administered on 10/06/16 09:03; Admin Dose 1 TAB; Start 09/27/16 at 09:00 Hydralazine HCl (Apresoline) 20 mg Q6H PRN IV sbp>170mmhg; Start 09/27/16 at 08 :30 Labetalol HCl (Labetalol) 20 mg Q4H PRN IV sbp>160mmhg; Start 09/27/16 at 08:30 Docusate Sodium (Colace) 100 mg BID PO Last administered on 10/06/16 09:03; Admin Dose 100 MG; Start 09/27/16 at 09:00 Tamsulosin HCl (Flomax) 0.4 mg BID PO Last administered on 10/06/16 09:03; Admin Dose 0.4 MG; Start 09/27/16 at 21:00 Diphenhydramine HCl (Benadryl) 25 mg Q6H PRN PO ITCHING Last administered on 00:14; Admin Dose 25 MG; Start 09/29/16 at 17:00 Heparin Sodium (Porcine) (Heparin (5000 Units/0.5 ml)) 5,000 unit BID SC ; Start 09/29/16 at 21:12; Status Future Hold Linezolid (Zyvox) 600 mg BID PO Last administered on 10/06/16 09:03; Admin Dose 600 MG; Start 09/30/16 at 10:00; Stop 10/07/16 at 06:00 Epoetin Ottoniel (Epogen (Esrd)) 4,000 units MoWeFr@17 SC Last administered on 10/05 17:52; Admin Dose 4,000 UNITS; Start 10/03/16 at 17:00 KEVIN BROWNE MD Oct 06, 2016 15:08
--- NOTE | 2016-10-06 16:00 | PN ---
DATE: 10/06/2016 SUBJECTIVE DATA: No acute changes overnight. The patient is alert, denies pain, looks comfortable. No fevers. Urine looks clean. There is some blood tinge present in the tubing. He is on Zyvox, day number 7. INDWELLINGS: Cmkeon, right chest PermCath. PHYSICAL EXAMINATION: GENERAL: Well-developed, middle-aged man, who is alert, in no distress. HEENT: Head atraumatic, normocephalic. Sclerae anicteric. Buccal mucosa pink. NECK: Supple. CHEST: Chest rise symmetrical. Breath sounds clear. HEART: S1, S2. ABDOMEN: Soft, bowel sounds present. EXTREMITIES: Without cyanosis. ASSESSMENT: 1. Vancomycin-resistant Enterrococcus urinary tract infection. 2. Urinary retention. 3. End-stage renal disease, hemodialysis dependent. 4. Hypertension. 5. Pleural effusions, status post thoracentesis with pleural fluid cultures being negative. PLAN: The patient remains stable. Completing antibiotics. He is going to get today the last dose of Zyvox and then will discontinue it. His platelet count is tracing down likely secondary to Zyvox. Again we will discontinue Zyvox and monitor his platelet count closely. Consider discontinuing Mckeon catheter and monitor postvoid residuals. Dictated By: Nilton Downs NP /deonte/fabrice /Document#: [id number]
--- NOTE | 2016-10-06 18:48 | PN ---
Date/Time of Note Date/Time of Note DATE: 10/06/16 TIME: 18:43 Assessment/Plan VTE Prophylaxis VTE Prophylaxis Intervention: SCD's Lines/Catheters IV Catheter Type (from Nrs): Permacath Assessment/Plan Chief Complaint/Hosp Course 61 yo male with ESRD of unclear etiology, hypertension, and BPH who presents with pleural effusion and bladder outlet obstruction causing b/l hydronephrosis Pleural effusion likely from acute diastolic CHF exacerbation: - s/p therapeutic/diagnostic thoracentesis. Labs transudative - Continue HD per renal ESRD: - Unclear etiology of renal disease - HD per renal Hypertension: - Continue current management BPH leading to acute EWING and hydronephrosis, hematuria: - Dr Lanza was contacted. Does not feel urgent need to see patient, but patient does need a urology consultation and have contacted alternative urologist - Continue flomax to 0.4 BID and finasteride - Continue barraza until procedure preformed to prostate - Will likely need prostate resection - Significant hematuria concerning for malignancy -Have removed Barraza today, patient has not urinated as of yet will monitor overnight Complicated UTI 2/2 VRE -Status post Zyvox -ID on the case PPX: SCDs Problems: Subjective 24 Hr Interval Summary Constitutional: no complaints Exam/Review of Systems Vital Signs Vitals Vital Signs Date Time Temp Pulse Resp B/P Pulse Ox O2 Delivery O2 Flow Rate FiO2 10/06/16 16:26 98.0 75 18 135/76 98 Intake and Output 10/05/16 10/05/16 10/06/16 15:00 23:00 07:00 Intake Total 950 ml 500 ml Output Total 250 ml 300 ml Balance 700 ml 200 ml Exam Constitutional: alert, oriented Respiratory: clear to auscultation Cardiovascular: regular rate and rhythm Gastrointestinal: soft, No distended Musculoskeletal: nl extremities to inspection Results Result Diagram: 10/06/16 1000 10/06/16 1000 Results 24 hrs Laboratory Tests Test 10/06/16 10:00 White Blood Count 4.7 #L Red Blood Count 3.60 L Hemoglobin 10.4 L Hematocrit 31.3 L Mean Corpuscular Volume 86.9 Mean Corpuscular Hemoglobin 28.9 L Mean Corpuscular Hemoglobin Concent 33.2 Red Cell Distribution Width 14.4 Platelet Count 80 #L Mean Platelet Volume 10.7 H Neutrophils % 66.6 Lymphocytes % 25.2 Monocytes % 2.3 Eosinophils % 4.9 Basophils % 0.8 Nucleated Red Blood Cells % 0.0 Neutrophils # (Manual) 3.1 Lymphocytes # 1.2 Monocytes # 0.1 L Eosinophils # 0.2 Basophils # 0.0 Nucleated Red Blood Cells # 0.0 Sodium Level 131 L Potassium Level 4.5 Chloride Level 90 L Carbon Dioxide Level 26 Anion Gap 20 H Blood Urea Nitrogen 40 #H Creatinine 7.41 H Glucose Level 137 # Calcium Level 8.6 Medications Medications Current Medications Amiodarone HCl (Cordarone) 200 mg DAILY PO Last administered on 10/06/16 09:04 ; Admin Dose 200 MG; Start 09/27/16 at 09:00 Amlodipine Besylate (Norvasc) 10 mg DAILY PO Last administered on 10/05/16 09: 31; Admin Dose 10 MG; Start 09/27/16 at 09:00 Clonidine (Catapres) 0.2 mg Q8 PO Last administered on 10/06/16 13:37; Admin Dose 0.2 MG; Start 09/27/16 at 08:30 Hydralazine HCl (Apresoline) 100 mg TID PO Last administered on 10/06/16 13:36 ; Admin Dose 100 MG; Start 09/27/16 at 09:00 Lisinopril (Zestril) 20 mg BID PO Last administered on 10/05/16 21:09; Admin Dose 20 MG; Start 09/27/16 at 09:00 Metoprolol Tartrate (Lopressor) 50 mg TID PO Last administered on 10/06/16 13: 37; Admin Dose 50 MG; Start 09/27/16 at 09:00 Pantoprazole (Protonix Tab) 40 mg DAILY PO Last administered on 10/06/16 09:03 ; Admin Dose 40 MG; Start 09/27/16 at 09:00 Multivit/Ca Carb/ B Cmplx/FA/Prenat (Rosalba-Caitlin) 1 tab DAILY PO Last administered on 10/06/16 09:03; Admin Dose 1 TAB; Start 09/27/16 at 09:00 Hydralazine HCl (Apresoline) 20 mg Q6H PRN IV sbp>170mmhg; Start 09/27/16 at 08 :30 Labetalol HCl (Labetalol) 20 mg Q4H PRN IV sbp>160mmhg; Start 09/27/16 at 08:30 Docusate Sodium (Colace) 100 mg BID PO Last administered on 10/06/16 09:03; Admin Dose 100 MG; Start 09/27/16 at 09:00 Tamsulosin HCl (Flomax) 0.4 mg BID PO Last administered on 10/06/16 09:03; Admin Dose 0.4 MG; Start 09/27/16 at 21:00 Diphenhydramine HCl (Benadryl) 25 mg Q6H PRN PO ITCHING Last administered on 00:14; Admin Dose 25 MG; Start 09/29/16 at 17:00 Heparin Sodium (Porcine) (Heparin (5000 Units/0.5 ml)) 5,000 unit BID SC ; Start 09/29/16 at 21:12; Status Future Hold Linezolid (Zyvox) 600 mg BID PO Last administered on 10/06/16 09:03; Admin Dose 600 MG; Start 09/30/16 at 10:00; Stop 10/07/16 at 06:00 Epoetin Ottoniel (Epogen (Esrd)) 4,000 units MoWeFr@17 SC Last administered on 10/05 17:52; Admin Dose 4,000 UNITS; Start 10/03/16 at 17:00 KENJI ROLDAN Oct 06, 2016 18:48
--- NOTE | 2016-10-06 20:10 | CONS ---
Date/Time of Note Date/Time of Note DATE: 10/06/16 TIME: 19:58 Assessment/Plan Assessment/Plan Chief Complaint/Hosp Course 61-year-old male who is on hemodialysis. Renal ultrasound showed bilateral hydronephrosis. He had an indwelling Mckeon catheter that was removed at 3 PM today and he has not voided since. He does have VRE in the urine. He underwent a cystoscopy and fulguration of the bladder for bleeding about 2-3 weeks ago at [facility]. The hydronephrosis could be secondary to thick bladder wall. I will order CT scan of the abdomen and pelvis and that could give me an idea about the kidney also if there is any ureteral obstruction and the bladder and the prostate. Also I will order a PSA on him. Will check his bladder was bladder scan and when the volume is over 500 mL do straight cath on him. Continue his tamsulosin 0.4 mg twice a day Problems: Consultation Date/Type/Reason Admit Date/Time Sep 27, 2016 at 05:51 Date of Consultation: Oct 06, 2016 Type of Consultation: Urology Reason for Consultation Urinary retention and urinary tract infection Referring Provider: KENJI ROLDAN Hx of Present Illness This is a 61-year-old male with history of renal failure on hemodialysis for the past 8 months the reason for the renal failure is unknown as far as the patient knows he said he started having dialysis about 8 months ago he gets dialysis on Monday and Monday. And he had a couple of falls and he does have hypertension and about 2-3 weeks earlier he was admitted again to [facility] and there he had a cystoscopy and because he was having gross hematuria and the urologist did according to the patient stop the bleeding by sealing with the laser. While the patient was on dialysis he still making urine and he does have pain with urination and his urine culture here did show vancomycin resistant enterococcus. He did have an indwelling Mckeon catheter that was removed around 3 PM today and he has not voided since. Constitutional: no complaints, No chills Eyes: No discharge, No no complaints, No other, No pain, No redness, No visual change ENT: No bleeding, No congestion, No discharge, No dysphagia, No no complaints, No other, No pain, No sore throat Respiratory: other (States he did have pleural effusion and that was drained) Cardiovascular: No chest pain, No edema, No lightheadedness, No no complaints, No orthopenea, No other, No palpitations, No paroxysmal nocturnal dyspnea Gastrointestinal: no complaints Genitourinary: dysuria, hematuria (About 2 weeks ago and because of it he underwent cystoscopy at [facility]) Musculoskeletal: no complaints Skin: no complaints Neurologic: no complaints Psychological: no complaints Past Medical History Medical History: hypertension, renal disease, urinary tract infection Past Surgical History Past Surgical Hx: other (Recent cystoscopy and most likely bladder fulguration , I am not sure whether he underwent a TURP at the same time at [facility]) Family History Significant Family History: no pertinent family hx Social History Alcohol Use: none Smoking Status: Never smoker Drug Use: none Exam/Review of Systems Vital Signs Vitals Vital Signs Date Time Temp Pulse Resp B/P Pulse Ox O2 Delivery O2 Flow Rate FiO2 10/06/16 16:26 98.0 75 18 135/76 98 Intake and Output 10/05/16 10/05/16 10/06/16 15:00 23:00 07:00 Intake Total 950 ml 500 ml Output Total 250 ml 300 ml Balance 700 ml 200 ml Exam Constitutional: alert, oriented Psych: no complaints Head: normocephalic Eyes: nl conjunctiva ENMT: nl external ears & nose Neck: supple Respiratory: normal air movement Cardiovascular: nl pulses Gastrointestinal: soft, No mass, No tender Genitourinary - Male: nl penis, nl scrotum, other (Rectal examination reveals a large prostate and it has a small hard nodule on the left side of the patient) Musculoskeletal: nl extremities to inspection Extremities: No calf tenderness, No edema Results Result Diagram: 10/06/16 1000 10/06/16 1000 Results 24 hrs Laboratory Tests Test 10/06/16 10:00 White Blood Count 4.7 #L Red Blood Count 3.60 L Hemoglobin 10.4 L Hematocrit 31.3 L Mean Corpuscular Volume 86.9 Mean Corpuscular Hemoglobin 28.9 L Mean Corpuscular Hemoglobin Concent 33.2 Red Cell Distribution Width 14.4 Platelet Count 80 #L Mean Platelet Volume 10.7 H Neutrophils % 66.6 Lymphocytes % 25.2 Monocytes % 2.3 Eosinophils % 4.9 Basophils % 0.8 Nucleated Red Blood Cells % 0.0 Neutrophils # (Manual) 3.1 Lymphocytes # 1.2 Monocytes # 0.1 L Eosinophils # 0.2 Basophils # 0.0 Nucleated Red Blood Cells # 0.0 Sodium Level 131 L Potassium Level 4.5 Chloride Level 90 L Carbon Dioxide Level 26 Anion Gap 20 H Blood Urea Nitrogen 40 #H Creatinine 7.41 H Glucose Level 137 # Calcium Level 8.6 Medications Medications Current Medications Amiodarone HCl (Cordarone) 200 mg DAILY PO Last administered on 10/06/16 09:04 ; Admin Dose 200 MG; Start 09/27/16 at 09:00 Amlodipine Besylate (Norvasc) 10 mg DAILY PO Last administered on 10/05/16 09: 31; Admin Dose 10 MG; Start 09/27/16 at 09:00 Clonidine (Catapres) 0.2 mg Q8 PO Last administered on 10/06/16 13:37; Admin Dose 0.2 MG; Start 09/27/16 at 08:30 Hydralazine HCl (Apresoline) 100 mg TID PO Last administered on 10/06/16 13:36 ; Admin Dose 100 MG; Start 09/27/16 at 09:00 Lisinopril (Zestril) 20 mg BID PO Last administered on 10/05/16 21:09; Admin Dose 20 MG; Start 09/27/16 at 09:00 Metoprolol Tartrate (Lopressor) 50 mg TID PO Last administered on 10/06/16 13: 37; Admin Dose 50 MG; Start 09/27/16 at 09:00 Pantoprazole (Protonix Tab) 40 mg DAILY PO Last administered on 10/06/16 09:03 ; Admin Dose 40 MG; Start 09/27/16 at 09:00 Multivit/Ca Carb/ B Cmplx/FA/Prenat (Rosalba-Caitlin) 1 tab DAILY PO Last administered on 10/06/16 09:03; Admin Dose 1 TAB; Start 09/27/16 at 09:00 Hydralazine HCl (Apresoline) 20 mg Q6H PRN IV sbp>170mmhg; Start 09/27/16 at 08 :30 Labetalol HCl (Labetalol) 20 mg Q4H PRN IV sbp>160mmhg; Start 09/27/16 at 08:30 Docusate Sodium (Colace) 100 mg BID PO Last administered on 10/06/16 09:03; Admin Dose 100 MG; Start 09/27/16 at 09:00 Tamsulosin HCl (Flomax) 0.4 mg BID PO Last administered on 10/06/16 09:03; Admin Dose 0.4 MG; Start 09/27/16 at 21:00 Diphenhydramine HCl (Benadryl) 25 mg Q6H PRN PO ITCHING Last administered on 00:14; Admin Dose 25 MG; Start 09/29/16 at 17:00 Heparin Sodium (Porcine) (Heparin (5000 Units/0.5 ml)) 5,000 unit BID SC ; Start 09/29/16 at 21:12; Status Future Hold Linezolid (Zyvox) 600 mg BID PO Last administered on 10/06/16 09:03; Admin Dose 600 MG; Start 09/30/16 at 10:00; Stop 10/07/16 at 06:00 Epoetin Ottoniel (Epogen (Esrd)) 4,000 units MoWeFr@17 SC Last administered on 10/05 17:52; Admin Dose 4,000 UNITS; Start 10/03/16 at 17:00 MONSTER MCMILLAN MD Oct 06, 2016 20:09
--- NOTE | 2016-10-06 21:32 | RADRPT ---
PROCEDURE: CT abdomen and pelvis without contrast. CLINICAL INDICATION: Hydronephrosis. Abdominal pain. Benign prostatic hypertrophy TECHNIQUE: CT scan of the abdomen and pelvis without contrast was performed. Sagittal and coronal reformatted images were obtained from the axial source images. CTDI = 7.79 mGy; DLP = 473.16 mGy-cm COMPARISON: Ultrasound 09/28/2016. Chest x-ray 09/29/2016 FINDINGS: Visualized lower thorax: Visualized heart is enlarged with a stent coronary artery calcification fo r the patient's age. There is a small pericardial effusion. Compressive atelectasis of the right g reater than left lower lobes is present. Moderate right and a small left pleural effusions are demo nstrated similar to the prior chest x-ray Liver, gallbladder, pancreas and spleen: The liver is normal and size, contour and attenuation. Th ere is no evidence for a solid liver mass or ductal dilatation, small hepatic cysts are present the largest in the medial segment left hepatic lobe anteriorly. The gallbladder is unremarkable. No co mmon bile duct abnormality is demonstrated. The pancreas is unremarkable. The spleen is normal in size. Adrenal glands and genitourinary system: The adrenal glands are normal bilaterally. There is bilate ral renal cortex thinning and borderline renal atrophy with mild bilateral hydronephrosis greater on the left. There is stranding of the fat surrounding the kidneys and the renal pelvis on each side unable to exclude urinary tract infection and pyelitis. A tiny punctate calculus in the upper pole right kidney is present the ureters are normal in caliber and without calculi. Diffuse urinary blad padmaja wall thickening is again noted measuring up to 16 mm. A Mckeon catheter is no longer present alt nydia there is some gas within the bladder lumen positive from recent instrumentation.. Prostatomeg brandon is present the volume of the gland approximately 80 cc. The visualized scrotum shows nonspecifi c wall edema and probable tiny bilateral hydroceles. Gastrointestinal system: The stomach is normal in caliber with no abnormality of significance. The small bowel is normal in caliber with no ileus, obstruction or wall thickening. There is no evidenc e of appendicitis. A marked amount of fecal debris throughout the colon is concerning for constipat ion. There is no evidence for colitis or diverticulitis. Peritoneum, retroperitoneum, lymph nodes and vessels: The abdominal aorta is normal in caliber. The re is moderate aortic and severe internal iliac atherosclerotic calcification. The inferior vena ca va is unremarkable. There is no evidence for adenopathy or mass. Trace perihepatic ascites is jaspal lar to the prior ultrasound. No pneumoperitoneum is present. Osseous structures and musculoskeletal findings: There is no fracture, lytic or blastic lesion. So me lower lumbar facet arthropathy is incidentally noted. Diffuse subcutaneous edema is consistent w ith anasarca. RPTAT:HJJR IMPRESSION: 1. Bilateral hydronephrosis does not appear as severe as the ultrasound of 09/28/2016 with borderlin e bilateral renal atrophy, malrotation of the left kidney and inflammatory stranding of the fat surr ounding the kidney and renal pelves unable to exclude associated urinary tract infection. 2. Tiny nonobstructing right upper pole renal calculus. 3. Diffuse urinary bladder wall thickening unable to exclude cyst cystitis or possibly detrusor mus rimma hypertrophy from marked prostatomegaly. 4. Right larger than left pleural effusions with compressive atelectasis of the lung bases. 5. Mild cardiomegaly, pericardial effusion and extensive coronary artery calcification. 6. Diffuse anasarca pattern cannot exclude an element of third spacing and congestive heart failure . 7. Constipation pattern. 8. Atherosclerotic calcification in the aorta and internal iliac system. 9. Trace amount of perihepatic ascites similar to the ultrasound of 09/28/2016. 10. Incidental hepatic cysts. Physician Ezekiel Date Time Electronically viewed and signed by Physician Ezekiel on 10/06/2016 21:31 JR/
[2016-10-07] VITALS (12 sets, daily range): BP systolic 127–168; BP diastolic 77–99; PULSE 56–65; RESP 16–20
[2016-10-07 07:04] LABS: ABNORMAL IP MESSAGE 1; BASOPHIL # 0.1 10^3/ul (0.0-0.1); BASOPHILS % 1.6 % (0.0-2.0); EOSINOPHILS # 0.3 10^3/ul (0.0-0.5); EOSINOPHILS % 4.9 % (0.0-7.0); HEMATOCRIT 28.9 % (42.0-52.0); HEMOGLOBIN 9.8 g/dl (14.0-18.0); LYMPHOCYTES # 2.3 10^3/ul (0.8-2.9); LYMPHOCYTES % 37.9 % (15.0-51.0); MEAN CORPUSCULAR HEMOGLOBIN 29.3 pg (29.0-33.0); MEAN CORPUSCULAR HGB CONC 33.9 g/dl (32.0-37.0); MEAN CORPUSCULAR VOLUME 86.5 fl (82.0-101.0); MEAN PLATELET VOLUME 9.9 fl (7.4-10.4); MONOCYTE # 0.4 10^3/ul (0.3-0.9); NEUTROPHILS % 48.3 % (39.0-77.0); POSITIVE DIFF @See below; RED BLOOD COUNT 3.34 10^6/ul (4.70-6.10); RED CELL DISTRIBUTION WIDTH 14.7 % (11.5-14.5); WHITE BLOOD COUNT 6.2 10^3/ul (4.8-10.8)
[2016-10-07 07:16] LABS: PLATELET COUNT 72 10^3/UL (140-415)
[2016-10-07 07:37] LABS: CALCIUM 8.3 mg/dl (8.4-10.2); CREATININE 5.57 mg/dl (0.61-1.24); POTASSIUM 4.3 mmol/L (3.5-5.1)
[2016-10-07] MEDS: MULTIVIT/CA CARB/B CMPLX/FA TAB PO SCH (08:53)
[2016-10-07] MEDS: AMIODARONE 200 MG TAB PO SCH (08:54)
[2016-10-07] MEDS: DOCUSATE SODIUM 100 MG CAP PO SCH ×2 (08:54→21:43)
[2016-10-07] MEDS: PANTOPRAZOLE (EC) 40 MG TAB PO SCH (08:54)
[2016-10-07] MEDS: AMLODIPINE 10 MG TAB PO SCH (08:55)
[2016-10-07] MEDS: LISINOPRIL 20 MG TAB PO SCH ×2 (08:55→21:43)
[2016-10-07] MEDS: TAMSULOSIN (SR) 0.4 MG CAP PO SCH ×2 (08:55→21:43)
[2016-10-07] MEDS: METOPROLOL 50 MG TAB PO SCH ×3 (08:55→21:00)
--- NOTE | 2016-10-07 09:17 | CONS ---
Date/Time of Note Date/Time of Note DATE: 10/07/16 TIME: 09:16 Assessment/Plan Assessment/Plan Chief Complaint/Hosp Course Acute on chronic diastolic heart failure: decompensated by exam on admission. EF ~50%. Now euvolemic Hematuria: per pt he has had a cystoscopy before. Mckeon now removed ESRD on HD: TTS HTN: BP uncontrolled on multiple meds on admission. Volume overload also contributing. Overall controlled -HD per nephrology -antibiotics per primary/ID teams -amlodipine 10mg -clonidine 0.2mg TID -metoprolol 50mg TID -hydralazine 100mg TID -lisinopril 20mg BID Problems: Consultation Date/Type/Reason Admit Date/Time Sep 27, 2016 at 05:51 Initial Consult Date 09/27/16 Type of Consultation: Cardiology Referring Provider: KENJI ROLDAN 24 HR Interval Summary Free Text/Dictation Mckeon removed. Has some urine retention. Exam/Review of Systems Vital Signs Vitals Vital Signs Date Time Temp Pulse Resp B/P Pulse Ox O2 Delivery O2 Flow Rate FiO2 10/07/16 08:04 63 10/07/16 07:29 97.9 19 168/99 96 Intake and Output 10/06/16 10/06/16 10/07/16 15:00 23:00 07:00 Intake Total 300 ml 750 ml 800 ml Output Total 3300 ml 200 ml Balance -3000 ml 550 ml 800 ml Exam Constitutional: alert, oriented Psych: nl mood/affect, no complaints Head: atraumatic, normocephalic Neck: jvd (7cm) Respiratory: clear to auscultation, No crackles/rales Cardiovascular: regular rate and rhythm, No edema, No systolic murmur Gastrointestinal: non-tender, soft Musculoskeletal: nl extremities to inspection Neurological: nl mental status, nl speech Results Result Diagram: 10/07/1619 10/07/1619 Results 24 hrs Laboratory Tests Test 10/06/16 10:00 10/07/16 06:19 White Blood Count 4.7 #L 6.2 # Red Blood Count 3.60 L 3.34 L Hemoglobin 10.4 L 9.8 L Hematocrit 31.3 L 28.9 L Mean Corpuscular Volume 86.9 86.5 Mean Corpuscular Hemoglobin 28.9 L 29.3 Mean Corpuscular Hemoglobin Concent 33.2 33.9 Red Cell Distribution Width 14.4 14.7 H Platelet Count 80 #L 72 L Mean Platelet Volume 10.7 H 9.9 Neutrophils % 66.6 48.3 Lymphocytes % 25.2 37.9 Monocytes % 2.3 7.0 Eosinophils % 4.9 4.9 Basophils % 0.8 1.6 Nucleated Red Blood Cells % 0.0 0.0 Neutrophils # (Manual) 3.1 3.0 Lymphocytes # 1.2 2.3 Monocytes # 0.1 L 0.4 Eosinophils # 0.2 0.3 Basophils # 0.0 0.1 Nucleated Red Blood Cells # 0.0 0.0 Sodium Level 131 L 127 L Potassium Level 4.5 4.3 Chloride Level 90 L 92 L Carbon Dioxide Level 26 27 Anion Gap 20 H 12 # Blood Urea Nitrogen 40 #H 32 H Creatinine 7.41 H 5.57 H Glucose Level 137 # 80 # Calcium Level 8.6 8.3 L Medications Medications Current Medications Amiodarone HCl (Cordarone) 200 mg DAILY PO Last administered on 10/07/16 08:54 ; Admin Dose 200 MG; Start 09/27/16 at 09:00 Amlodipine Besylate (Norvasc) 10 mg DAILY PO Last administered on 10/07/16 08: 55; Admin Dose 10 MG; Start 09/27/16 at 09:00 Clonidine (Catapres) 0.2 mg Q8 PO Last administered on 10/07/16 05:34; Admin Dose 0.2 MG; Start 09/27/16 at 08:30 Hydralazine HCl (Apresoline) 100 mg TID PO Last administered on 10/07/16 08:54 ; Admin Dose 100 MG; Start 09/27/16 at 09:00 Lisinopril (Zestril) 20 mg BID PO Last administered on 10/07/16 08:55; Admin Dose 20 MG; Start 09/27/16 at 09:00 Metoprolol Tartrate (Lopressor) 50 mg TID PO Last administered on 10/07/16 08: 55; Admin Dose 50 MG; Start 09/27/16 at 09:00 Pantoprazole (Protonix Tab) 40 mg DAILY PO Last administered on 10/07/16 08:54 ; Admin Dose 40 MG; Start 09/27/16 at 09:00 Multivit/Ca Carb/ B Cmplx/FA/Prenat (Rosalba-Caitlin) 1 tab DAILY PO Last administered on 10/07/16 08:53; Admin Dose 1 TAB; Start 09/27/16 at 09:00 Hydralazine HCl (Apresoline) 20 mg Q6H PRN IV sbp>170mmhg; Start 09/27/16 at 08 :30 Labetalol HCl (Labetalol) 20 mg Q4H PRN IV sbp>160mmhg; Start 09/27/16 at 08:30 Docusate Sodium (Colace) 100 mg BID PO Last administered on 10/07/16 08:54; Admin Dose 100 MG; Start 09/27/16 at 09:00 Tamsulosin HCl (Flomax) 0.4 mg BID PO Last administered on 10/07/16 08:55; Admin Dose 0.4 MG; Start 09/27/16 at 21:00 Diphenhydramine HCl (Benadryl) 25 mg Q6H PRN PO ITCHING Last administered on 00:14; Admin Dose 25 MG; Start 09/29/16 at 17:00 Heparin Sodium (Porcine) (Heparin (5000 Units/0.5 ml)) 5,000 unit BID SC ; Start 09/29/16 at 21:12; Status Future Hold Epoetin Ottoniel (Epogen (Esrd)) 4,000 units MoWeFr@17 SC Last administered on 10/05 17:52; Admin Dose 4,000 UNITS; Start 10/03/16 at 17:00 Miscellaneous Information Patients own medicat... BID@10,16 XX Last administered on 10/07/16 08:56; Admin Dose 1 EA; Start 10/06/16 at 10:00 CON PERRIN Oct 07, 2016 09:17
--- NOTE | 2016-10-07 15:27 | CONS ---
Date/Time of Note Date/Time of Note DATE: 10/07/16 TIME: 15:26 Assessment/Plan Assessment/Plan Additional Assessment/Plan (1) Hematuria Comment: may benefit from bladder irrigation. (2) Hypertension Status: Acute Comment: under control Qualifiers: Hypertension type: essential hypertension Qualified Code: I10 - Essential hypertension (3) Pleural effusion Status: Acute Comment: s/p thoracentasis (4) ESRD (end stage renal disease) on dialysis Comment: HD TTS, HD Today (5) Hyponatremia Fluid restricted diet. Consultation Date/Type/Reason Admit Date/Time Sep 27, 2016 at 05:51 Initial Consult Date 09/27/16 Type of Consultation: Renal Referring Provider: KENJI ROLDAN 24 HR Interval Summary Constitutional: No requiring O2 Exam/Review of Systems Vital Signs Vitals Vital Signs Date Time Temp Pulse Resp B/P Pulse Ox O2 Delivery O2 Flow Rate FiO2 10/07/16 15:23 97.5 58 18 130/78 98 Intake and Output 10/06/16 10/06/16 10/07/16 15:00 23:00 07:00 Intake Total 300 ml 750 ml 800 ml Output Total 3300 ml 200 ml Balance -3000 ml 550 ml 800 ml Exam Constitutional: No distress ENMT: mucosa pink and moist Neck: No jvd Respiratory: clear to auscultation Cardiovascular: regular rate and rhythm, No edema Gastrointestinal: soft Neurological: [employer]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, No lethargic Skin: No diaphoresis Results Result Diagram: 10/07/16 0619 10/07/16 0619 Results 24 hrs Laboratory Tests Test 10/07/16 06:19 White Blood Count 6.2 # Red Blood Count 3.34 L Hemoglobin 9.8 L Hematocrit 28.9 L Mean Corpuscular Volume 86.5 Mean Corpuscular Hemoglobin 29.3 Mean Corpuscular Hemoglobin Concent 33.9 Red Cell Distribution Width 14.7 H Platelet Count 72 L Mean Platelet Volume 9.9 Neutrophils % 48.3 Lymphocytes % 37.9 Monocytes % 7.0 Eosinophils % 4.9 Basophils % 1.6 Nucleated Red Blood Cells % 0.0 Neutrophils # (Manual) 3.0 Lymphocytes # 2.3 Monocytes # 0.4 Eosinophils # 0.3 Basophils # 0.1 Nucleated Red Blood Cells # 0.0 Sodium Level 127 L Potassium Level 4.3 Chloride Level 92 L Carbon Dioxide Level 27 Anion Gap 12 # Blood Urea Nitrogen 32 H Creatinine 5.57 H Glucose Level 80 # Calcium Level 8.3 L Medications Medications Current Medications Amiodarone HCl (Cordarone) 200 mg DAILY PO Last administered on 10/07/16 08:54 ; Admin Dose 200 MG; Start 09/27/16 at 09:00 Amlodipine Besylate (Norvasc) 10 mg DAILY PO Last administered on 10/07/16 08: 55; Admin Dose 10 MG; Start 09/27/16 at 09:00 Clonidine (Catapres) 0.2 mg Q8 PO Last administered on 10/07/16 13:24; Admin Dose 0.2 MG; Start 09/27/16 at 08:30 Hydralazine HCl (Apresoline) 100 mg TID PO Last administered on 10/07/16 13:24 ; Admin Dose 100 MG; Start 09/27/16 at 09:00 Lisinopril (Zestril) 20 mg BID PO Last administered on 10/07/16 08:55; Admin Dose 20 MG; Start 09/27/16 at 09:00 Metoprolol Tartrate (Lopressor) 50 mg TID PO Last administered on 10/07/16 13: 24; Admin Dose 50 MG; Start 09/27/16 at 09:00 Pantoprazole (Protonix Tab) 40 mg DAILY PO Last administered on 10/07/16 08:54 ; Admin Dose 40 MG; Start 09/27/16 at 09:00 Multivit/Ca Carb/ B Cmplx/FA/Prenat (Rosalba-Caitlni) 1 tab DAILY PO Last administered on 10/07/16 08:53; Admin Dose 1 TAB; Start 09/27/16 at 09:00 Hydralazine HCl (Apresoline) 20 mg Q6H PRN IV sbp>170mmhg; Start 09/27/16 at 08 :30 Labetalol HCl (Labetalol) 20 mg Q4H PRN IV sbp>160mmhg; Start 09/27/16 at 08:30 Docusate Sodium (Colace) 100 mg BID PO Last administered on 10/07/16 08:54; Admin Dose 100 MG; Start 09/27/16 at 09:00 Tamsulosin HCl (Flomax) 0.4 mg BID PO Last administered on 10/07/16 08:55; Admin Dose 0.4 MG; Start 09/27/16 at 21:00 Diphenhydramine HCl (Benadryl) 25 mg Q6H PRN PO ITCHING Last administered on 00:14; Admin Dose 25 MG; Start 09/29/16 at 17:00 Heparin Sodium (Porcine) (Heparin (5000 Units/0.5 ml)) 5,000 unit BID SC ; Start 09/29/16 at 21:12; Status Future Hold Epoetin Ottoniel (Epogen (Esrd)) 4,000 units MoWeFr@17 SC Last administered on 10/05 17:52; Admin Dose 4,000 UNITS; Start 10/03/16 at 17:00 Miscellaneous Information Patients own medicat... BID@10,16 XX Last administered on 10/07/16 15:07; Admin Dose 1 EA; Start 10/06/16 at 10:00 KEVIN BROWNE MD Oct 07, 2016 15:27
--- NOTE | 2016-10-07 15:46 | PN ---
Date/Time of Note Date/Time of Note DATE: 10/07/16 TIME: 15:44 Assessment/Plan VTE Prophylaxis VTE Prophylaxis Intervention: SCD's Lines/Catheters IV C[facility]ter Type [facility]): Peripheral IV Urinary Cath still in place: No Assessment/Plan Chief Complaint/Hosp Course 61 yo male with ESRD of unclear etiology, hypertension, and BPH who presents with pleural effusion and bladder outlet obstruction causing b/l hydronephrosis Pleural effusion likely from acute diastolic CHF exacerbation: - s/p therapeutic/diagnostic thoracentesis. Labs transudative - Continue HD per renal ESRD: - Unclear etiology of renal disease - HD per renal Hypertension: - Continue current management BPH leading to acute EWING and hydronephrosis, hematuria: -Urology consultation appreciated - Continue flomax to 0.4 BID and finasteride - Will likely need prostate resection - Significant hematuria improving -Have removed Mckeon catheter and does not have a significant urine output at this time, follow-up with urology or conditions -CT abdomen shows improvement of bilateral hydronephrosis Complicated UTI 2/2 VRE -Status post Zyvox -ID on the case PPX: SCDs Problems: Subjective 24 Hr Interval Summary Constitutional: no complaints Exam/Review of Systems Vital Signs Vitals Vital Signs Date Time Temp Pulse Resp B/P Pulse Ox O2 Delivery O2 Flow Rate FiO2 10/07/16 15:23 97.5 58 18 130/78 98 Intake and Output 10/06/16 10/06/16 10/07/16 15:00 23:00 07:00 Intake Total 300 ml 750 ml 800 ml Output Total 3300 ml 200 ml Balance -3000 ml 550 ml 800 ml Exam Constitutional: alert, oriented Respiratory: clear to auscultation Cardiovascular: regular rate and rhythm Gastrointestinal: soft, No distended Musculoskeletal: nl extremities to inspection Results Result Diagram: 10/07/16 0619 10/07/16 0619 Results 24 hrs Laboratory Tests Test 10/07/16 06:19 White Blood Count 6.2 # Red Blood Count 3.34 L Hemoglobin 9.8 L Hematocrit 28.9 L Mean Corpuscular Volume 86.5 Mean Corpuscular Hemoglobin 29.3 Mean Corpuscular Hemoglobin Concent 33.9 Red Cell Distribution Width 14.7 H Platelet Count 72 L Mean Platelet Volume 9.9 Neutrophils % 48.3 Lymphocytes % 37.9 Monocytes % 7.0 Eosinophils % 4.9 Basophils % 1.6 Nucleated Red Blood Cells % 0.0 Neutrophils # (Manual) 3.0 Lymphocytes # 2.3 Monocytes # 0.4 Eosinophils # 0.3 Basophils # 0.1 Nucleated Red Blood Cells # 0.0 Sodium Level 127 L Potassium Level 4.3 Chloride Level 92 L Carbon Dioxide Level 27 Anion Gap 12 # Blood Urea Nitrogen 32 H Creatinine 5.57 H Glucose Level 80 # Calcium Level 8.3 L Medications Medications Current Medications Amiodarone HCl (Cordarone) 200 mg DAILY PO Last administered on 10/07/16 08:54 ; Admin Dose 200 MG; Start 09/27/16 at 09:00 Amlodipine Besylate (Norvasc) 10 mg DAILY PO Last administered on 10/07/16 08: 55; Admin Dose 10 MG; Start 09/27/16 at 09:00 Clonidine (Catapres) 0.2 mg Q8 PO Last administered on 10/07/16 13:24; Admin Dose 0.2 MG; Start 09/27/16 at 08:30 Hydralazine HCl (Apresoline) 100 mg TID PO Last administered on 10/07/16 13:24 ; Admin Dose 100 MG; Start 09/27/16 at 09:00 Lisinopril (Zestril) 20 mg BID PO Last administered on 10/07/16 08:55; Admin Dose 20 MG; Start 09/27/16 at 09:00 Metoprolol Tartrate (Lopressor) 50 mg TID PO Last administered on 10/07/16 13: 24; Admin Dose 50 MG; Start 09/27/16 at 09:00 Pantoprazole (Protonix Tab) 40 mg DAILY PO Last administered on 10/07/16 08:54 ; Admin Dose 40 MG; Start 09/27/16 at 09:00 Multivit/Ca Carb/ B Cmplx/FA/Prenat (Rosalba-Caitlin) 1 tab DAILY PO Last administered on 10/07/16 08:53; Admin Dose 1 TAB; Start 09/27/16 at 09:00 Hydralazine HCl (Apresoline) 20 mg Q6H PRN IV sbp>170mmhg; Start 09/27/16 at 08 :30 Labetalol HCl (Labetalol) 20 mg Q4H PRN IV sbp>160mmhg; Start 09/27/16 at 08:30 Docusate Sodium (Colace) 100 mg BID PO Last administered on 10/07/16 08:54; Admin Dose 100 MG; Start 09/27/16 at 09:00 Tamsulosin HCl (Flomax) 0.4 mg BID PO Last administered on 10/07/16 08:55; Admin Dose 0.4 MG; Start 09/27/16 at 21:00 Diphenhydramine HCl (Benadryl) 25 mg Q6H PRN PO ITCHING Last administered on 00:14; Admin Dose 25 MG; Start 09/29/16 at 17:00 Heparin Sodium (Porcine) (Heparin (5000 Units/0.5 ml)) 5,000 unit BID SC ; Start 09/29/16 at 21:12; Status Future Hold Epoetin Ottoniel (Epogen (Esrd)) 4,000 units MoWeFr@17 SC Last administered on 10/05 17:52; Admin Dose 4,000 UNITS; Start 10/03/16 at 17:00 Miscellaneous Information Patients own medicat... BID@10,16 XX Last administered on 10/07/16 15:07; Admin Dose 1 EA; Start 10/06/16 at 10:00 KENJI ROLDAN Oct 07, 2016 15:46
[2016-10-07] MEDS: EPOETIN 4000 UNITS/1 ML INJ (ESRD) SC SCH (18:21)
--- NOTE | 2016-10-07 20:32 | PN ---
Date/Time of Note Date/Time of Note DATE: 10/07/16 TIME: 20:22 Assessment/Plan VTE Prophylaxis VTE Prophylaxis Intervention: SCD's Lines/Catheters IV [facility] Type ([facility] Peripheral IV Urinary Cath still in place: No Assessment/Plan Chief Complaint/Hosp Course 61-year-old male who is on hemodialysis. Renal ultrasound showed bilateral hydronephrosis. He had an indwelling Mckeon catheter that was removed He does have VRE in the urine. He underwent a cystoscopy and fulguration of the bladder for bleeding about 2-3 weeks ago at [facility]. The hydronephrosis could be secondary to thick bladder wall. CT scan of the abdomen and pelvis showed that the prostate is very large and protruding into the bladder. Since the bladder scan does not show that he is in urinary retention we will continue to monitor his voiding volume and the postvoid residual by bladder scan, do an and out cath if the postvoid residual is over 300 mL or if he does not void in 6-8 hours and the bladder scan showed over 500 mL. Once the patient is stable he should follow up with his medical group I think he will need to undergo transurethral resection of the prostate because the prostate is very large and obstructing the bladder Problems: Subjective 24 Hr Interval Summary Constitutional: no complaints, other (Patient stated that he has been voiding small amount) Eyes: no complaints ENT: no complaints Respiratory: No shortness of breath, No wheezing Cardiovascular: No chest pain Gastrointestinal: no complaints Genitourinary: dysuria, No bleeding, No hematuria Musculoskeletal: no complaints Skin: no complaints Exam/Review of Systems Vital Signs Vitals Vital Signs Date Time Temp Pulse Resp B/P Pulse Ox O2 Delivery O2 Flow Rate FiO2 10/07/16 20:06 59 10/07/16 15:23 97.5 18 130/78 98 Intake and Output 10/06/16 10/06/16 10/07/16 15:00 23:00 07:00 Intake Total 300 ml 750 ml 800 ml Output Total 3300 ml 200 ml Balance -3000 ml 550 ml 800 ml Exam Constitutional: alert Psych: no complaints Head: normocephalic Eyes: nl conjunctiva ENMT: nl external ears & nose Neck: supple Respiratory: normal air movement Gastrointestinal: soft, No mass, No tender Genitourinary - Male: other (Voiding small amount but he is not a retention as his postvoid residual is between 100-200ml), No CVA tenderness Extremities: No calf tenderness, No edema Skin: nl turgor Results CT scan of the abdomen and pelvis Prostatomegaly is present the volume of the gland approximately 80 cc. 1. Bilateral hydronephrosis does not appear as severe as the ultrasound of 09/28 with borderline bilateral renal atrophy, malrotation of the left kidney and inflammatory stranding of the fat surrounding the kidney and renal pelves unable to exclude associated urinary tract infection. 2. Tiny nonobstructing right upper pole renal calculus. 3. Diffuse urinary bladder wall thickening unable to exclude cyst cystitis or possibly detrusor muscle hypertrophy from marked prostatomegaly. 4. Right larger than left pleural effusions with compressive atelectasis of the lung bases. 5. Mild cardiomegaly, pericardial effusion and extensive coronary artery calcification. 6. Diffuse anasarca pattern cannot exclude an element of third spacing and congestive heart failure. 7. Constipation pattern. 8. Atherosclerotic calcification in the aorta and internal iliac system. 9. Trace amount of perihepatic ascites similar to the ultrasound of 09/28/2016. 10. Incidental hepatic cysts. Result Diagram: 10/07/1661810/07/16618 Results 24 hrs Laboratory Tests Test 10/07/16 06:19 White Blood Count 6.2 # Red Blood Count 3.34 L Hemoglobin 9.8 L Hematocrit 28.9 L Mean Corpuscular Volume 86.5 Mean Corpuscular Hemoglobin 29.3 Mean Corpuscular Hemoglobin Concent 33.9 Red Cell Distribution Width 14.7 H Platelet Count 72 L Mean Platelet Volume 9.9 Neutrophils % 48.3 Lymphocytes % 37.9 Monocytes % 7.0 Eosinophils % 4.9 Basophils % 1.6 Nucleated Red Blood Cells % 0.0 Neutrophils # (Manual) 3.0 Lymphocytes # 2.3 Monocytes # 0.4 Eosinophils # 0.3 Basophils # 0.1 Nucleated Red Blood Cells # 0.0 Sodium Level 127 L Potassium Level 4.3 Chloride Level 92 L Carbon Dioxide Level 27 Anion Gap 12 # Blood Urea Nitrogen 32 H Creatinine 5.57 H Glucose Level 80 # Calcium Level 8.3 L Medications Medications Current Medications Amiodarone HCl (Cordarone) 200 mg DAILY PO Last administered on 10/07/16 08:54 ; Admin Dose 200 MG; Start 09/27/16 at 09:00 Amlodipine Besylate (Norvasc) 10 mg DAILY PO Last administered on 10/07/16 08: 55; Admin Dose 10 MG; Start 09/27/16 at 09:00 Clonidine (Catapres) 0.2 mg Q8 PO Last administered on 10/07/16 13:24; Admin Dose 0.2 MG; Start 09/27/16 at 08:30 Hydralazine HCl (Apresoline) 100 mg TID PO Last administered on 10/07/16 13:24 ; Admin Dose 100 MG; Start 09/27/16 at 09:00 Lisinopril (Zestril) 20 mg BID PO Last administered on 10/07/16 08:55; Admin Dose 20 MG; Start 09/27/16 at 09:00 Metoprolol Tartrate (Lopressor) 50 mg TID PO Last administered on 10/07/16 13: 24; Admin Dose 50 MG; Start 09/27/16 at 09:00 Pantoprazole (Protonix Tab) 40 mg DAILY PO Last administered on 10/07/16 08:54 ; Admin Dose 40 MG; Start 09/27/16 at 09:00 Multivit/Ca Carb/ B Cmplx/FA/Prenat (Rosalba-Caitlin) 1 tab DAILY PO Last administered on 10/07/16 08:53; Admin Dose 1 TAB; Start 09/27/16 at 09:00 Hydralazine HCl (Apresoline) 20 mg Q6H PRN IV sbp>170mmhg; Start 09/27/16 at 08 :30 Labetalol HCl (Labetalol) 20 mg Q4H PRN IV sbp>160mmhg; Start 09/27/16 at 08:30 Docusate Sodium (Colace) 100 mg BID PO Last administered on 10/07/16 08:54; Admin Dose 100 MG; Start 09/27/16 at 09:00 Tamsulosin HCl (Flomax) 0.4 mg BID PO Last administered on 10/07/16 08:55; Admin Dose 0.4 MG; Start 09/27/16 at 21:00 Diphenhydramine HCl (Benadryl) 25 mg Q6H PRN PO ITCHING Last administered on 00:14; Admin Dose 25 MG; Start 09/29/16 at 17:00 Heparin Sodium (Porcine) (Heparin (5000 Units/0.5 ml)) 5,000 unit BID SC ; Start 09/29/16 at 21:12; Status Future Hold Epoetin Ottoniel (Epogen (Esrd)) 4,000 units MoWeFr@17 SC Last administered on 18:21; Admin Dose 4,000 UNITS; Start 10/03/16 at 17:00 Miscellaneous Information Patients own medicat... BID@10,16 XX Last administered on 10/07/16 15:07; Admin Dose 1 EA; Start 10/06/16 at 10:00 MONSTER MCMILLAN MD Oct 07, 2016 20:32
[2016-10-08] VITALS (17 sets, daily range): BP systolic 119–145; BP diastolic 70–79; PULSE 59–68; RESP 16–20
[2016-10-08] MEDS: MULTIVIT/CA CARB/B CMPLX/FA TAB PO SCH (09:19)
[2016-10-08] MEDS: PANTOPRAZOLE (EC) 40 MG TAB PO SCH (09:19)
[2016-10-08] MEDS: AMIODARONE 200 MG TAB PO SCH (09:20)
[2016-10-08] MEDS: LISINOPRIL 20 MG TAB PO SCH (09:20)
[2016-10-08] MEDS: AMLODIPINE 10 MG TAB PO SCH (09:20)
[2016-10-08] MEDS: METOPROLOL 50 MG TAB PO SCH ×2 (09:20→12:22)
[2016-10-08] MEDS: DOCUSATE SODIUM 100 MG CAP PO SCH (09:21)
[2016-10-08] MEDS: TAMSULOSIN (SR) 0.4 MG CAP PO SCH (09:21)
[2016-10-08 09:27] LABS: ABNORMAL IP MESSAGE 1; BASOPHIL # 0.1 10^3/ul (0.0-0.1); EOSINOPHILS # 0.1 10^3/ul (0.0-0.5); EOSINOPHILS % 2.3 % (0.0-7.0); HEMATOCRIT 31.2 % (42.0-52.0); HEMOGLOBIN 10.6 g/dl (14.0-18.0); LYMPHOCYTES # 1.4 10^3/ul (0.8-2.9); LYMPHOCYTES % 26.4 % (15.0-51.0); MEAN CORPUSCULAR HEMOGLOBIN 28.9 pg (29.0-33.0); MEAN PLATELET VOLUME 9.5 fl (7.4-10.4); MONOCYTE # 0.4 10^3/ul (0.3-0.9); MONOCYTES % 7.2 % (0.0-11.0); NEUTROPHILS % 62.7 % (39.0-77.0); PLATELET COUNT 59 10^3/UL (140-415); POSITIVE DIFF @See below; RED BLOOD COUNT 3.67 10^6/ul (4.70-6.10); RED CELL DISTRIBUTION WIDTH 14.1 % (11.5-14.5); WHITE BLOOD COUNT 5.3 10^3/ul (4.8-10.8)
[2016-10-08 09:42] LABS: CALCIUM 8.5 mg/dl (8.4-10.2); CREATININE 4.15 mg/dl (0.61-1.24); POTASSIUM 3.5 mmol/L (3.5-5.1)
--- NOTE | 2016-10-08 13:06 | PN ---
Date/Time of Note Date/Time of Note DATE: 10/08/16 TIME: 12:57 Assessment/Plan VTE Prophylaxis VTE Prophylaxis Intervention: SCD's Lines/Catheters IV Catheter Type (from Nrs): PERMACATH Urinary Cath still in place: No Assessment/Plan Chief Complaint/Hosp Course 61-year-old male who is on hemodialysis. Renal ultrasound showed bilateral hydronephrosis. He does have VRE in the urine. He underwent a cystoscopy and fulguration of the bladder for bleeding about 2-3 weeks ago at [facility]. The hydronephrosis could be secondary to thick bladder wall. CT scan of the abdomen and pelvis showed that the prostate is very large and protruding into the bladder. the bladder scan showed a volume of over 500 mL therefore the nurse did do straight cath on him and the urine drained was 200 mL of dark old blood. Continue to monitor his voiding volume and the postvoid residual by bladder scan, do an and out cath if the postvoid residual is over 300 mL or if he does not void in 6-8 hours and the bladder scan showed over 500 mL. Once the patient is stable he should follow up with his medical group I think he will need to undergo transurethral resection of the prostate because the prostate is very large and obstructing the bladder Problems: Subjective 24 Hr Interval Summary Constitutional: no complaints Eyes: no complaints ENT: no complaints Respiratory: no complaints Cardiovascular: No chest pain Gastrointestinal: no complaints Genitourinary: hematuria Musculoskeletal: no complaints Exam/Review of Systems Vital Signs Vitals Vital Signs Date Time Temp Pulse Resp B/P Pulse Ox O2 Delivery O2 Flow Rate FiO2 10/08/16 12:23 65 10/08/16 11:40 97.4 19 136/70 98 Intake and Output 10/07/16 10/07/16 10/08/16 15:00 23:00 07:00 Intake Total 600 ml 500 ml Balance 600 ml 500 ml Exam Constitutional: alert Psych: no complaints Head: normocephalic Eyes: nl conjunctiva ENMT: nl external ears & nose Neck: supple Respiratory: normal air movement Cardiovascular: nl pulses Gastrointestinal: soft Genitourinary - Male: other (Patient had over 500 mL on a bladder scan postvoid residual and was catheterized, the urine was dark bloody ,old blood) Musculoskeletal: nl extremities to inspection Extremities: No calf tenderness Results Result Diagram: 10/08/1691610/08/16916 Results 24 hrs Laboratory Tests Test 10/08/16 09:17 White Blood Count 5.3 Red Blood Count 3.67 L Hemoglobin 10.6 L Hematocrit 31.2 L Mean Corpuscular Volume 85.0 Mean Corpuscular Hemoglobin 28.9 L Mean Corpuscular Hemoglobin Concent 34.0 Red Cell Distribution Width 14.1 Platelet Count 59 L Mean Platelet Volume 9.5 Neutrophils % 62.7 Lymphocytes % 26.4 Monocytes % 7.2 Eosinophils % 2.3 Basophils % 1.0 Nucleated Red Blood Cells % 0.0 Neutrophils # (Manual) 3.3 Lymphocytes # 1.4 Monocytes # 0.4 Eosinophils # 0.1 Basophils # 0.1 Nucleated Red Blood Cells # 0.0 Sodium Level 131 L Potassium Level 3.5 Chloride Level 94 L Carbon Dioxide Level 29 Anion Gap 12 Blood Urea Nitrogen 22 H Creatinine 4.15 #H Glucose Level 112 Calcium Level 8.5 Medications Medications Current Medications Amiodarone HCl (Cordarone) 200 mg DAILY PO Last administered on 10/08/16 09:20 ; Admin Dose 200 MG; Start 09/27/16 at 09:00 Amlodipine Besylate (Norvasc) 10 mg DAILY PO Last administered on 10/08/16 09: 20; Admin Dose 10 MG; Start 09/27/16 at 09:00 Clonidine (Catapres) 0.2 mg Q8 PO Last administered on 10/07/16 21:44; Admin Dose 0.2 MG; Start 09/27/16 at 08:30 Hydralazine HCl (Apresoline) 100 mg TID PO Last administered on 10/08/16 12:22 ; Admin Dose 100 MG; Start 09/27/16 at 09:00 Lisinopril (Zestril) 20 mg BID PO Last administered on 10/08/16 09:20; Admin Dose 20 MG; Start 09/27/16 at 09:00 Metoprolol Tartrate (Lopressor) 50 mg TID PO Last administered on 10/08/16 12: 22; Admin Dose 50 MG; Start 09/27/16 at 09:00 Pantoprazole (Protonix Tab) 40 mg DAILY PO Last administered on 10/08/16 09:19 ; Admin Dose 40 MG; Start 09/27/16 at 09:00 Multivit/Ca Carb/ B Cmplx/FA/Prenat (Rosalba-Caitlin) 1 tab DAILY PO Last administered on 10/08/16 09:19; Admin Dose 1 TAB; Start 09/27/16 at 09:00 Hydralazine HCl (Apresoline) 20 mg Q6H PRN IV sbp>170mmhg; Start 09/27/16 at 08 :30 Labetalol HCl (Labetalol) 20 mg Q4H PRN IV sbp>160mmhg; Start 09/27/16 at 08:30 Docusate Sodium (Colace) 100 mg BID PO Last administered on 10/08/16 09:21; Admin Dose 100 MG; Start 09/27/16 at 09:00 Tamsulosin HCl (Flomax) 0.4 mg BID PO Last administered on 10/08/16 09:21; Admin Dose 0.4 MG; Start 09/27/16 at 21:00 Diphenhydramine HCl (Benadryl) 25 mg Q6H PRN PO ITCHING Last administered on 00:14; Admin Dose 25 MG; Start 09/29/16 at 17:00 Heparin Sodium (Porcine) (Heparin (5000 Units/0.5 ml)) 5,000 unit BID SC ; Start 09/29/16 at 21:12; Status Future Hold Epoetin Ottoniel (Epogen (Esrd)) 4,000 units MoWeFr@17 SC Last administered on 18:21; Admin Dose 4,000 UNITS; Start 10/03/16 at 17:00 Miscellaneous Information Patients own medicat... BID@10,16 XX Last administered on 10/07/16 15:07; Admin Dose 1 EA; Start 10/06/16 at 10:00 MONSTER MCMILLAN MD Oct 08, 2016 13:06
[2016-10-08] MEDS ORDERED: TAMS-14 PO (13:42)
--- NOTE | 2016-10-08 13:54 | PDOCDIS ---
Discharge Instructions CONDITION Patient Condition: Good HOME CARE INSTRUCTIONS: Special Diet: RENAL ACTIVITY: Activity Restrictions: No Restrictions FOLLOW UP/APPOINTMENTS Follow-up Plan F/U WITH YOUR PCP IN 1-2 WEEKS, F/U WITH A UROLOGIST KENJI ROLDAN Oct 08, 2016 13:54
--- NOTE | 2016-10-08 15:01 | DS ---
Date/Time of Note Date/Time of Note DATE: 10/08/16 TIME: 14:53 Discharge Summary Admission/Discharge Info Admit Date/Time Sep 27, 2016 at 05:51 Discharge Date/Time October 08, 2016 Discharge Diagnosis Pleural effusion likely from acute diastolic CHF exacerbation: - s/p therapeutic/diagnostic thoracentesis. Labs transudative - Continue HD per renal ESRD: - Unclear etiology of renal disease - HD per renal Hypertension: - Continue current management BPH leading to acute EWING and hydronephrosis, hematuria: Stable with no reports of suprapubic pain -Urology consultation appreciated, patient to continue Flomax and follow-up with urology as an outpatient, patient will likely need TURP as an outpatient -CT abdomen shows improvement of bilateral hydronephrosis Complicated UTI 2/2 VRE -Status post Zyvox -ID consult appreciated Hospital Course Patient is a 61-year-old male history of end stage renal disease, BPH who presented with shortness of breath as well as hypertensive urgency. She was found to have a right-sided pleural effusion and received a diagnostic thoracentesis. Patient received dialysis while in-house. Patient did have a renal ultrasound and bilateral hydronephrosis. The patient says that he was just recently at [facility] when he was managed for blood in his urine and he underwent a cystoscopy. Post cystoscopy though he has not really had any urine output. Patient was noted to have urinary outflow obstruction secondary to BPH. Patient's Flomax was increased to 24 twice daily and was seen by urology and a CT abdomen that showed BPH with improving bilateral hydronephrosis. Of note patient did have VRE in the urine was seen by ID and completed a course of Zyvox. Patient's Mckeon was eventually removed he did have some urine output he was monitored without a Mckeon catheter. Patient did have some retained urine but he is a symptomatic with no suprapubic pain. Allergy rec was for patient to continue Flomax and to follow-up with urology as an outpatient where he will likely need a TURP at some point. On day of discharge patient's vitals, labs and physical exam are stable he had no acute complaints and questions were answered Home Meds Active Scripts Tamsulosin Hcl* (Flomax*) 0.4 Mg Cap.er.24h, 0.4 MG PO BID, #60 CAP 1 Refill Prov:KENJI ROLDAN 10/08/16 Reported Medications Lisinopril* (Lisinopril*) 20 Mg Tablet, 20 MG PO BID, #30 TAB 09/26/16 Amlodipine Besylate* (Amlodipine Besylate*) 10 Mg Tablet, 10 MG PO DAILY, #30 TAB 09/26/16 Clonidine Hcl* (Clonidine Hcl*) 0.2 Mg Tablet, 0.2 MG PO Q8, TAB 09/26/16 Amiodarone Hcl* (Amiodarone Hcl*) 200 Mg Tablet, 200 MG PO DAILY, #30 TAB 09/26/16 Metoprolol Tartrate* (Lopressor*) 50 Mg Tab, 50 MG PO TID, #60 TAB 09/26/16 Pantoprazole* (Pantoprazole*) 40 Mg Tablet.dr, 40 MG PO DAILY, TAB 09/26/16 Folic Acid/Vitamin B Comp W-C (Nephrocaps Capsule) 1 Mg Capsule, 1 MG PO DAILY, CAP 09/26/16 Multivitamin* (Daily Value*) 1 Each Tablet, 1 TAB PO DAILY, TAB 09/26/16 Hydralazine Hcl* (Hydralazine Hcl*) 50 Mg Tab, 100 MG PO TID, #180 TAB 09/26/16 Discontinued Reported Medications Tamsulosin Hcl* (Tamsulosin Hcl*) 0.4 Mg Cap.er.24h, 0.4 MG PO DAILY, CAP 09/26/16 Follow-up Plan Follow with primary care physician 1-2 weeks, follow-up with urologist Primary Care Provider Doctor [facility] Emergency Time spent on discharge: > 30 minutes Pending Labs Labor KENJI ROLDAN Oct 08, 2016 15:01
== END 2016-10-08 18:40 | disposition home or self-care (01) | DRG 291 ==
LOC: E/R 19:38 → MS3 09-27 05:51 → TEL 09-27 22:26
PROVIDERS: ADMIT Family Medicine; ATTEND Family Medicine
PROC: 30233N1 Transfusion of Nonautologous Red Blood Cells into Peripheral Vein, Percutaneous Approach (ICD-10-PCS; principal; 2016-09-28)
PROC: 5A1D60Z (ICD-10-PCS; 2016-09-28)
PROC: 0W993ZZ Drainage of Right Pleural Cavity, Percutaneous Approach (ICD-10-PCS; 2016-09-29)
DX: I13.2 Hypertensive heart and chronic kidney disease with heart failure and with stage 5 chronic kidney disease, or end stage renal disease (principal); I50.33 Acute on chronic diastolic (congestive) heart failure; J18.9 Pneumonia, unspecified organism; J90 Pleural effusion, not elsewhere classified; N18.6 End stage renal disease; N13.1 Hydronephrosis with ureteral stricture, not elsewhere classified; N13.8 Other obstructive and reflux uropathy; N39.0 Urinary tract infection, site not specified; I16.9 Hypertensive crisis, unspecified; Z99.2 Dependence on renal dialysis; D63.1 Anemia in chronic kidney disease; N40.1 Benign prostatic hyperplasia with lower urinary tract symptoms; R33.8 Other retention of urine; R31.0 Gross hematuria; B95.2 Enterococcus as the cause of diseases classified elsewhere; Z16.21 Resistance to vancomycin
CPT/HCPCS: 36415; 36430; 71010; 74176; 76775; 76942; 80048; 80053; 80061; 80076; 80202; 81001; 82550; 82553; 82728; 83540; 83605; 83615; 83735; 84100; 84153; 84154; 84157; 84484; 85025; 85610; 85730; 86803; 86850; 86900; 86901; 86920; 87040; 87070; 87086; 87102; 87116; 87340; 90935; 93005; 93306; 93970; 96372; 96374; 96375; 97161; J0360; J0456; J0692; J0696; J1644; J1940; J3370; J7050; P9016; Q4081